=== PATIENT | female | born 1940 ===

== ENCOUNTER 2023-02-03 13:06 | Inpatient (IN) | payer OTHER, SELFPAY ==
--- NOTE | ~2023-02-03 | US_ITS ---
EXAMINATION: US ABDOMEN COMPLETE CLINICAL INFORMATION: Transaminasemia. COMPARISON: None available. TECHNIQUE: Real-time imaging of the abdominal viscera. FINDINGS: PANCREAS: Question small cyst in the body/neck of the pancreas measuring 4 x 5 mm. Pancreas is otherwise normal. ABDOMINAL AORTA: The proximal and distal segments are normal in caliber. Mid abdominal aorta are not well visualized due to bowel gas. INFERIOR VENA CAVA: Visualized portions are normal. LIVER: Normal. The liver is normal in size. The liver contour is normal. Parenchymal echogenicity is normal. No focal hepatic lesion. There is no intrahepatic biliary duct dilatation seen. GALLBLADDER: Surgically absent. COMMON BILE DUCT: Minimally dilated probably normal post cholecystectomy measuring 0.9 cm in diameter. RIGHT KIDNEY: 3 cm cyst in the midpole. No imaging follow-up recommended. No hydronephrosis or renal calculi. The kidney measures 11.3 cm in maximum dimension. LEFT KIDNEY: Normal. No hydronephrosis. No renal calculi or focal parenchymal lesions. The kidney measures 10.6 cm in maximum dimension. SPLEEN: Normal. The spleen measures 11.3 cm in maximum dimension. FREE FLUID: None. US/US abdomen complete IMPRESSION: Normal-appearing liver. Question small cyst in the body/neck of the pancreas.
--- NOTE | ~2023-02-03 | XR_ITS ---
EXAMINATION: XR CHEST CLINICAL INFORMATION: Chest pain COMPARISON: None available. TECHNIQUE: AP portable view of the chest was obtained. FINDINGS: There is no evidence of acute parenchymal disease, pneumothorax, or pleural effusion. Heart normal size. No evidence of pulmonary edema. There is a nondisplaced fracture which may be acute or chronic involving the anterolateral aspect of the right sixth rib. XR/XR chest 1V IMPRESSION: No acute parenchymal disease within the chest. Nondisplaced fracture which may be acute or chronic involving the right sixth rib.
--- NOTE | ~2023-02-03 | CT_ITS ---
EXAMINATION: CT ANGIOGRAM BRAIN, HEAD CLINICAL INFORMATION: Aneurysm. Intracranial stent, on heparin. COMPARISON: None available. TECHNIQUE: Test bolus sequences followed by intravenous administration 100 mL of Omnipaque 350 intravenous contrast. Helical imaging was performed in the axial plane from the skull base to the vertex. Delayed postcontrast imaging of the head was also performed. The data was processed at the anesthesiology technologist workstation for generation of MIP sequences. Three-dimensional volume rendered reformatted images were also generated at an offline 3-D workstation. The degree of stenosis determined by NASCET criteria. This CT examination was performed using dose optimization techniques as appropriate, variously including the following: *Automated exposure control *Adjustment of mA and/or kV according to patient size (this includes techniques or standardized protocols for targeted exams where dose is matched to indication/reason for exam; i.e. extremities or head) *Use of iterative reconstruction technique DLP: 1868 mGy-cm FINDINGS: CT head: There is no intracranial hemorrhage, extra-axial collection, mass effect, or territorial infarction. Moderate to severe chronic microangiopathic changes are seen within the cerebral white matter. The ventricles and sulci are commensurate with mild degree of brain parenchymal volume loss noted. The extra cranial structures are within normal limits. CTA head: Dense atheromatous changes are seen at the bilateral carotid siphons without significant stenosis. 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 The right A1 segment is atretic. The left A1 segment appears to supply both A2 segments. The ACAs and MCAs are patent. The collaterals appear symmetric. No aneurysm is seen. The intradural vertebral arteries are patent. The basilar artery is patent. There is disposition of the right CONCESSIONS MANAGER. CT/CT angio head IMPRESSION: 1. No acute intracranial abnormality. 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 2. 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 Anterior and posterior circulation is patent without significant stenosis or occlusion. No intracranial arterial stent identified.
--- NOTE | ~2023-02-03 | CT_ITS ---
EXAMINATION: CT HEAD WITHOUT CONTRAST CLINICAL INFORMATION: Trauma. Hit head. COMPARISON: Previous head CTA from yesterday TECHNIQUE: Contiguous axial imaging was performed from the skull base to vertex without intravenous administration of contrast. This CT examination was performed using dose optimization techniques as appropriate, variously including the following: *Automated exposure control *Adjustment of mA and/or kV according to patient size (this includes techniques or standardized protocols for targeted exams where dose is matched to indication/reason for exam; i.e. extremities or head) *Use of iterative reconstruction technique DLP: 550 mGy-cm FINDINGS: There is no evidence of an extra-axial collection. There is no evidence of intra or extra-axial hemorrhage. The ventricles and extra-axial CSF spaces are prominent suggestive of generalized atrophy. There is nonspecific periventricular white matter disease. There is evidence of previous instrumentation with coil embolization in the region of the acom. No mass, mass effect or infarct. No skull fracture. Visualized paranasal sinuses, mastoid air cells and middle ears are clear. CT/CT head/brain wo IV con IMPRESSION: No acute intracranial findings. Generalized atrophy and nonspecific periventricular white matter disease.
--- NOTE | 2023-02-03 13:07 | ECG_ITS ---
Test Reason : cp Blood Pressure : / mmHG Vent. Rate : 130 BPM Atrial Rate : 000 BPM P-R Int : 000 ms QRS Dur : 076 ms QT Int : 332 ms P-R-T Axes : 000 -17 169 degrees QTc Int : 488 ms Atrial fibrillation with rapid ventricular response ST & T wave abnormality, consider inferolateral ischemia Abnormal ECG No previous ECGs available Referred By: Generic ED Physician Electronically Signed By:TARIQ RUIZ
--- NOTE | 2023-02-03 13:14 | ED.CHESTPAIN ---
HPI - Chest Pain General Chief Complaint: Arrhythmia/Palpitations <EMRE Redd Last Filed: 02/03/23 13:15> Stated Complaint: chest pain <EMRE Redd Last Filed: 02/03/23 13:15> Time Seen by Provider: 02/03/23 13:29 <EMRE Redd - Last Filed: 02/03/23 13:15> Source: patient, RN notes reviewed and old records reviewed <EMRE Palacios Last Filed: 02/03/23 15:16> Mode of arrival: ambulatory <EMRE Palacios Last Filed: 02/03/23 15:16> History of Present Illness HPI narrative: 82-year-old female with a past medical history HTN, HLD, diabetes, brain aneurysm, presenting to ED complaining of chest pressure with associated generalized fatigue/weakness, lightheadedness and SOB x 3 days. Reports radiation of pain down LUE. denies fever, chills, cough, pedal edema, calf pain, recent travel <EMRE Palacios Last Filed: 02/03/23 15:16> MD complaint: chest discomfort <EMRE Palacios Last Filed: 02/03/23 15:16> Related Data Home Medications: Home Medications Medication Instructions Recorded Confirmed atorvastatin 80 mg tablet 80 mg PO DAILY 02/03/23 clopidogrel 75 mg tablet 75 mg PO DAILY 02/03/23 empagliflozin 25 mg tablet 25 mg PO DAILY 02/03/23 (Jardiance) glipizide 2.5 mg tablet, extended 5 mg PO BID 02/03/23 release 24 hr levothyroxine 75 mcg tablet 75 mcg PO DAILY 02/03/23 losartan 50 mg tablet 100 mg PO DAILY 02/03/23 metformin 1,000 mg tablet 1,000 mg PO BID 02/03/23 metoprolol succinate 25 mg 25 mg PO DAILY 02/03/23 tablet,extended release 24 hr <EMRE Redd Last Filed: 02/03/23 13:15> Allergies/Adverse Reactions: Allergies Allergy/AdvReac Type Severity Reaction Status Date / Time No Known Allergies Allergy Unverified 06/12/20 19:41 [No Known Allergies*] <EMRE Redd - Last Filed: 02/03/23 13:15> Review of Systems Review of Systems: Constitutional: No Fever, No Chills, No Fatigue, No Malaise ENT/Mouth: No Ear Pain, No sore throat, No Rhinorrhea, No Swallowing Difficulty Eyes: No Eye Pain, No Swelling, No Redness, No Vision Changes Cardiovascular: + Chest Pain, + SOB, No Edema, No Palpitations Respiratory: No Cough, No Sputum, No Dyspnea Gastrointestinal: No Nausea, No Vomiting, No Diarrhea, No Constipation, No Abdominal pain Genitourinary: No Dysuria, No Flank Pain, No Hesitancy Musculoskeletal: No joint pain, No Myalgias, No Joint Swelling Skin: No Skin Lesions, No rash Neuro: + Weakness, No Numbness, No Paresthesias, No Loss of Consciousness, + lightheaded, No Headache <EMRE Palacios - Last Filed: 02/03/23 15:16> Yes all other systems are reviewed and are negative <EMRE Palacios - Last Filed: 02/03/23 15:16> Constitutional: Constitutional: Reports as per HPI <EMRE Palacios - Last Filed: 02/03/23 15:16> Neurologic: Denies Abnormal speech present <EMRE Palacios - Last Filed: 02/03/23 15:16> [facility], [facility] Past Medical History Attestation statement: The following information was validated with the patient. <EMRE Palacios - Last Filed: 02/03/23 15:16> Source: old records reviewed <EMRE Palacios - Last Filed: 02/03/23 15:16> Social History Social History: Social History Advance Directives: No Advance Directives Information Provided: Yes <EMRE Redd - Last Filed: 02/03/23 13:15> Physical Exam Vital Signs: Vital Signs: Last Vital Signs Temp 97.9 F 02/03/23 13:45 Pulse 130 H 02/03/23 13:45 Resp 18 02/03/23 13:45 BP 120/60 02/03/23 13:45 Pulse Ox 96 02/03/23 13:45 O2 Del Method Room Air 02/03/23 13:45 BMI result Body Mass Index 23.3 <EMRE Redd - Last Filed: 02/03/23 13:15> Vital Signs: Last Vital Signs Temp 97.9 F 02/03/23 13:45 Pulse 130 H 02/03/23 13:45 Resp 18 02/03/23 13:45 BP 120/60 02/03/23 13:45 Pulse Ox 96 02/03/23 13:45 O2 Del Method Room Air 02/03/23 13:45 BMI result Body Mass Index 23.3 <EMRE Palacios - Last Filed: 02/03/23 15:16> Const: General: cooperative, healthy appearing, no acute distress, alert, awake and Physically active <EMRE Palacios - Last Filed: 02/03/23 15:16> Orientation/consciousness: patient oriented x3 <EMRE Palacios - Last Filed: 02/03/23 15:16> Limitations: no limitations <EMRE Palacios - Last Filed: 02/03/23 15:16> HEENT: Head: Yes normal to inspection and Yes atraumatic <EMRE Palacios - Last Filed: 02/03/23 15:16> Ears: hearing grossly normal bilaterally <EMRE Palacios - Last Filed: 02/03/23 15:16> General nose exam: Normal external nose present <EMRE Palacios - Last Filed: 02/03/23 15:16> Face and sinus: Yes normal facial exam <EMRE Palacios - Last Filed: 02/03/23 15:16> Eyes: General: appearance normal, both eyes and all related structures <EMRE Palacios - Last Filed: 02/03/23 15:16> EOM: EOMs intact bilaterally <EMRE Palacios - Last Filed: 02/03/23 15:16> Neck: Neck: Yes normal visual inspection and Yes no meningeal signs <EMRE Palacios - Last Filed: 02/03/23 15:16> Resp: Effort & Inspection: normal respiratory effort and no respiratory distress <EMRE Palacios - Last Filed: 02/03/23 15:16> Auscultation: clear to auscultation bilaterally, no crackles, no rales, no rhonchi and no wheezes <Audrey Poulrussellt PA - Last Filed: 02/03/23 15:16> Cardio: Rate: regular rate <Audrey Poulrussellt PA - Last Filed: 02/03/23 15:16> Heart sounds: S1 normal heart sound present and S2 normal heart sound present <Audrey Poulrussellt PA - Last Filed: 02/03/23 15:16> GI: Inspection: Yes normal to inspection <Audrey Poulrussellt PA - Last Filed: 02/03/23 15:16> Palpation (GI): Soft to palpation, nontender, no guarding and not rigid <Audrey Poulrussellt PA - Last Filed: 02/03/23 15:16> Skin: Rashes: no rashes <Audrey Nikolait PA - Last Filed: 02/03/23 15:16> Wounds: no wounds <Audrey Poulrussellt PA - Last Filed: 02/03/23 15:16> Neuro: General: patient oriented x3, tone normal, moves all extremities, no meningeal signs, no focal motor deficits and CN's II-XI intact bilaterally <Audrey Poulrussellt PA - Last Filed: 02/03/23 15:16> Cranial nerves: Yes CN's II-XII intact bilaterally and Yes Bilaterally intact EOM present <Audrey Poulrussellt PA - Last Filed: 02/03/23 15:16> Cognition (Neuro): normal cognition <Audrey Poulrussellt PA - Last Filed: 02/03/23 15:16> Speech: No Abnormal speech present <Audrey Poulrussellt PA - Last Filed: 02/03/23 15:16> Motor exam (neuro): 5/5 motor strength present throughout <Audrey Poulrussellt PA - Last Filed: 02/03/23 15:16> Extrem: General: Yes normal to inspection, Yes no pedal edema and Yes no calf tenderness <Audreycyndy Woodard PA - Last Filed: 02/03/23 15:16> Course Course Course Narrative: This is an RME: Additional HPI, ROS, PE not included below will be deferred to primary provider. 82 yo F presents w/ cp, sob X 3 days. CP substernal but radiates to L side of chest and part of LUE. Also a/c SOB. Unclear if patient is on thinners. PE benign Plan- labs, imaging <EMRE Redd - Last Filed: 02/03/23 13:15> This is an RME: Additional HPI, ROS, PE not included below will be deferred to primary provider. 82 yo F presents w/ cp, sob X 3 days. CP substernal but radiates to L side of chest and part of LUE. Also a/c SOB. Unclear if patient is on thinners. PE benign Plan- labs, imaging -1428-- no leukocytosis. H&H 9.2/29.9. D-dimer WNL, PE unlikely - BNP 1195 -1446-- AST/ ALT elevated. Initial troponin 534 > will consult cardiology and obtain 3 hour repeat, likely demand ischemia from new onset AFib. Patient denies chest pain at present >> Case discussed with Cardiology, Dr. Zelaya who recommended IV heparin - HR now 90s to 115 > patient given p.o. metoprolol. plan for admission <EMRE Palacios - Last Filed: 02/03/23 15:16> Medications Administered Discontinued Medications Generic Name Dose Route Start Last Admin Trade Name Freq PRN Reason Stop Dose Admin Insulin Human Lispro 5 unit 02/03/23 14:45 02/03/23 14:59 Insulin Lispro 100 Unit/Ml 3 Ml Vial SUBCUT 02/03/23 14:46 5 unit ONCE ONE Administration Metoprolol Tartrate 5 mg 02/03/23 13:49 02/03/23 14:02 Metoprolol Tartrate 5 Mg/5 Ml Vial IVPUSH 02/03/23 13:50 5 mg ONCE ONE Administration Metoprolol Tartrate 25 mg 02/03/23 14:50 02/03/23 14:59 Metoprolol Tartrate 25 Mg Tablet PO 02/03/23 14:51 25 mg ONCE ONE Administration Protocol <EMRE Redd - Last Filed: 02/03/23 13:15> Medications Administered Discontinued Medications Generic Name Dose Route Start Last Admin Trade Name Freq PRN Reason Stop Dose Admin Insulin Human Lispro 5 unit 02/03/23 14:45 02/03/23 14:59 Insulin Lispro 100 Unit/Ml 3 Ml Vial SUBCUT 02/03/23 14:46 5 unit ONCE ONE Administration Metoprolol Tartrate 5 mg 02/03/23 13:49 02/03/23 14:02 Metoprolol Tartrate 5 Mg/5 Ml Vial IVPUSH 02/03/23 13:50 5 mg ONCE ONE Administration Metoprolol Tartrate 25 mg 02/03/23 14:50 02/03/23 14:59 Metoprolol Tartrate 25 Mg Tablet PO 02/03/23 14:51 25 mg ONCE ONE Administration Protocol <EMRE Palacios Last Filed: 02/03/23 15:16> Medical Decision Making Medical Decision Making MDM Narrative: 82-year-old female with a past medical history HTN, HLD, diabetes, brain aneurysm, presenting to ED complaining of chest pressure with associated generalized fatigue/weakness, lightheadedness and SOB x 3 days. On exam patient tachycardic in AFib with RVR at a rate of 114-130, NAD, nontoxic appearing, lungs CTA, no pedal edema, no focal neuro deficits. Concern for new onset AFib vs ACS vs metabolic/infectious etiologies. lower suspicion for PE, CVA plan: EKG, labs, CXR, rate control, re-evaluate Please refer to course for remaining clinical decision making, interpretation of labs/imaging results, and discussions with consultants and/or family members. <EMRE Palacios Last Filed: 02/03/23 15:16> Differential Diagnosis Differential Diagnoses: The differential diagnosis associated with the presentation includes <EMRE Palacios Last Filed: 02/03/23 15:16> As above <EMRE Palacios Last Filed: 02/03/23 15:16> Admission/Observation Consideration of admission/observation: Escalation of care including admission/observation considered <EMRE Palacios Last Filed: 02/03/23 15:16> Consult Healthcare Provider Management of the patient was discussed with: Hospitalist and Residential Treatment Staff <EMRE Palacios Last Filed: 02/03/23 15:16> Lab Data [facility] Lab Attestation statement: I reviewed the patient's lab results. <EMRE Palacios - Last Filed: 02/03/23 15:16> Result Diagrams: 02/03/23 13:51 02/03/23 13:51 <EMRE Redd - Last Filed: 02/03/23 13:15> Labs: Lab Results 02/03/23 02/03/23 02/03/23 Range/Units 13:25 13:25 13:51 WBC 5.3 (4.8-10.8) X10*3/uL RBC 3.76 L (4.20-5.50) X10*6/uL Hgb 9.2 L (12.0-16.0) g/dl Hct 29.9 L (37.0-47.0) % MCV 79.5 L (80.0-98.0) fL MCH 24.5 L (27.0-33.0) pg MCHC 30.8 L (31.0-35.0) g/dl RDW 16.3 H (11.0-16.0) % Plt Count 191 (160-400) X10*3/uL MPV 9.7 (9.4-12.3) fL Immature Gran % (Auto) 0.4 (0.0-0.4) % Neut % (Auto) 73.1 H (45-73) % Lymph % (Auto) 16.4 L (20-40) % [place] % (Auto) 8.9 (2-11) % Eos % (Auto) 0.6 (0-4) % Baso % (Auto) 0.6 (0-2) % Lymph # (Auto) 0.9 L (1.2-4.9) X10*3/uL [place] # (Auto) 0.5 (0.1-1.2) X10*3/uL Eos # (Auto) 0.0 (0.0-0.4) X10*3/uL Baso # (Auto) 0.0 (0.0-0.2) X10*3/uL Abs Immat Gran (auto) 0.02 (0.00-0.03) X10*3/uL Absolute Neuts (auto) 3.9 (2.0-8.3) x10*3/uL Absolute Nucleated RBC 0.000 (0.0-0.012) X10*3/uL Nucleated RBC % (auto) 0.0 (0.0-0.2) /100WBC PT (10.0-13.1) SEC INR (0.9-1.1) D-Dimer High Sensitivty NG/ML Sodium (135-145) mmol/L Potassium (3.3-5.1) mmol/L Chloride (96-108) mmol/L Carbon Dioxide (22-29) mmol/L Anion Gap (12-20) BUN (9-16) mg/dL Creatinine (0.5-1.4) mg/dL Estim Creat Clear Calc Estimated GFR Random Glucose (60-115) mg/dL Calcium (8.4-10.2) mg/dL Magnesium (1.6-2.6) mg/dL Total Bilirubin (0.0-1.0) mg/dL AST (5-31) U/L ALT (0-31) U/L Alkaline Phosphatase (39-117) U/L Troponin I High Sens (<3.5-17.0) ng/L B-Natriuretic Peptide (<100) pg/mL Total Protein (6.5-8.0) g/dL Albumin (3.5-5.0) g/dL Urine Color Yellow Urine Appearance Clear Urine pH 5.5 (5.0-9.0) Ur Specific May >= 1.030 H (1.005-1.025) Urine Protein Negative (Neg-Trace) mg/dL Urine Glucose (UA) >=1000 H (Negative) mg/dL Urine Ketones Trace (Negative) mg/dL Urine Blood Negative (Negative) Urine Nitrite Negative (Negative) Ur Leukocyte Esterase Negative (Negative) Urine RBC 0-2 (0-2) /HPF Urine WBC 0-5 (0-5) /HPF Ur Squamous Epith Cells 0-2 (0-2) /HPF Urine Bacteria None Seen (None Seen) Hyaline Casts 0-2 (0-2) /LPF COVID-19 (MARYANN) Negative (Negative) COVID-19 Clin Com See Note 02/03/23 02/03/23 02/03/23 Range/Units 13:51 13:51 13:51 WBC (4.8-10.8) X10*3/uL RBC (4.20-5.50) X10*6/uL Hgb (12.0-16.0) g/dl Hct (37.0-47.0) % MCV (80.0-98.0) fL MCH (27.0-33.0) pg MCHC (31.0-35.0) g/dl RDW (11.0-16.0) % Plt Count (160-400) X10*3/uL MPV (9.4-12.3) fL Immature Gran % (Auto) (0.0-0.4) % Neut % (Auto) (45-73) % Lymph % (Auto) (20-40) % [place] % (Auto) (2-11) % Eos % (Auto) (0-4) % Baso % (Auto) (0-2) % Lymph # (Auto) (1.2-4.9) X10*3/uL [place] # (Auto) (0.1-1.2) X10*3/uL Eos # (Auto) (0.0-0.4) X10*3/uL Baso # (Auto) (0.0-0.2) X10*3/uL Abs Immat Gran (auto) (0.00-0.03) X10*3/uL Absolute Neuts (auto) (2.0-8.3) x10*3/uL Absolute Nucleated RBC (0.0-0.012) X10*3/uL Nucleated RBC % (auto) (0.0-0.2) /100WBC PT 12.4 (10.0-13.1) SEC INR 1.1 (0.9-1.1) D-Dimer High Sensitivty 151 NG/ML Sodium 133 L (135-145) mmol/L Potassium 4.8 (3.3-5.1) mmol/L Chloride 106 (96-108) mmol/L Carbon Dioxide 19 L (22-29) mmol/L Anion Gap 13 (12-20) BUN 32 H (9-16) mg/dL Creatinine 1.15 (0.5-1.4) mg/dL Estim Creat Clear Calc 30.3 Estimated GFR 45 Random Glucose 361 H* (60-115) mg/dL Calcium 9.5 (8.4-10.2) mg/dL Magnesium 1.9 (1.6-2.6) mg/dL Total Bilirubin 1.0 (0.0-1.0) mg/dL AST 102 H (5-31) U/L ALT 96 H (0-31) U/L Alkaline Phosphatase 172 H (39-117) U/L Troponin I High Sens 534.7 H* (<3.5-17.0) ng/L B-Natriuretic Peptide (<100) pg/mL Total Protein 7.8 (6.5-8.0) g/dL Albumin 3.5 (3.5-5.0) g/dL Urine Color Urine Appearance Urine pH (5.0-9.0) Ur Specific May (1.005-1.025) Urine Protein (Neg-Trace) mg/dL Urine Glucose (UA) (Negative) mg/dL Urine Ketones (Negative) mg/dL Urine Blood (Negative) Urine Nitrite (Negative) Ur Leukocyte Esterase (Negative) Urine RBC (0-2) /HPF Urine WBC (0-5) /HPF Ur Squamous Epith Cells (0-2) /HPF Urine Bacteria (None Seen) Hyaline Casts (0-2) /LPF COVID-19 (MARYANN) (Negative) COVID-19 Clin Com 02/03/23 Range/Units 13:51 WBC (4.8-10.8) X10*3/uL RBC (4.20-5.50) X10*6/uL Hgb (12.0-16.0) g/dl Hct (37.0-47.0) % MCV (80.0-98.0) fL MCH (27.0-33.0) pg MCHC (31.0-35.0) g/dl RDW (11.0-16.0) % Plt Count (160-400) X10*3/uL MPV (9.4-12.3) fL Immature Gran % (Auto) (0.0-0.4) % Neut % (Auto) (45-73) % Lymph % (Auto) (20-40) % [place] % (Auto) (2-11) % Eos % (Auto) (0-4) % Baso % (Auto) (0-2) % Lymph # (Auto) (1.2-4.9) X10*3/uL [place] # (Auto) (0.1-1.2) X10*3/uL Eos # (Auto) (0.0-0.4) X10*3/uL Baso # (Auto) (0.0-0.2) X10*3/uL Abs Immat Gran (auto) (0.00-0.03) X10*3/uL Absolute Neuts (auto) (2.0-8.3) x10*3/uL Absolute Nucleated RBC (0.0-0.012) X10*3/uL Nucleated RBC % (auto) (0.0-0.2) /100WBC PT (10.0-13.1) SEC INR (0.9-1.1) D-Dimer High Sensitivty NG/ML Sodium (135-145) mmol/L Potassium (3.3-5.1) mmol/L Chloride (96-108) mmol/L Carbon Dioxide (22-29) mmol/L Anion Gap (12-20) BUN (9-16) mg/dL Creatinine (0.5-1.4) mg/dL Estim Creat Clear Calc Estimated GFR Random Glucose (60-115) mg/dL Calcium (8.4-10.2) mg/dL Magnesium (1.6-2.6) mg/dL Total Bilirubin (0.0-1.0) mg/dL AST (5-31) U/L ALT (0-31) U/L Alkaline Phosphatase (39-117) U/L Troponin I High Sens (<3.5-17.0) ng/L B-Natriuretic Peptide 1195 H (<100) pg/mL Total Protein (6.5-8.0) g/dL Albumin (3.5-5.0) g/dL Urine Color Urine Appearance Urine pH (5.0-9.0) Ur Specific May (1.005-1.025) Urine Protein (Neg-Trace) mg/dL Urine Glucose (UA) (Negative) mg/dL Urine Ketones (Negative) mg/dL Urine Blood (Negative) Urine Nitrite (Negative) Ur Leukocyte Esterase (Negative) Urine RBC (0-2) /HPF Urine WBC (0-5) /HPF Ur Squamous Epith Cells (0-2) /HPF Urine Bacteria (None Seen) Hyaline Casts (0-2) /LPF COVID-19 (MARYANN) (Negative) COVID-19 Clin Com <EMRE Redd - Last Filed: 02/03/23 13:15> Lab Results 02/03/23 02/03/23 02/03/23 Range/Units 13:25 13:25 13:51 WBC 5.3 (4.8-10.8) X10*3/uL RBC 3.76 L (4.20-5.50) X10*6/uL Hgb 9.2 L (12.0-16.0) g/dl Hct 29.9 L (37.0-47.0) % MCV 79.5 L (80.0-98.0) fL MCH 24.5 L (27.0-33.0) pg MCHC 30.8 L (31.0-35.0) g/dl RDW 16.3 H (11.0-16.0) % Plt Count 191 (160-400) X10*3/uL MPV 9.7 (9.4-12.3) fL Immature Gran % (Auto) 0.4 (0.0-0.4) % Neut % (Auto) 73.1 H (45-73) % Lymph % (Auto) 16.4 L (20-40) % [place] % (Auto) 8.9 (2-11) % Eos % (Auto) 0.6 (0-4) % Baso % (Auto) 0.6 (0-2) % Lymph # (Auto) 0.9 L (1.2-4.9) X10*3/uL [place] # (Auto) 0.5 (0.1-1.2) X10*3/uL Eos # (Auto) 0.0 (0.0-0.4) X10*3/uL Baso # (Auto) 0.0 (0.0-0.2) X10*3/uL Abs Immat Gran (auto) 0.02 (0.00-0.03) X10*3/uL Absolute Neuts (auto) 3.9 (2.0-8.3) x10*3/uL Absolute Nucleated RBC 0.000 (0.0-0.012) X10*3/uL Nucleated RBC % (auto) 0.0 (0.0-0.2) /100WBC PT (10.0-13.1) SEC INR (0.9-1.1) D-Dimer High Sensitivty NG/ML Sodium (135-145) mmol/L Potassium (3.3-5.1) mmol/L Chloride (96-108) mmol/L Carbon Dioxide (22-29) mmol/L Anion Gap (12-20) BUN (9-16) mg/dL Creatinine (0.5-1.4) mg/dL Estim Creat Clear Calc Estimated GFR Random Glucose (60-115) mg/dL Calcium (8.4-10.2) mg/dL Magnesium (1.6-2.6) mg/dL Total Bilirubin (0.0-1.0) mg/dL AST (5-31) U/L ALT (0-31) U/L Alkaline Phosphatase (39-117) U/L Troponin I High Sens (<3.5-17.0) ng/L B-Natriuretic Peptide (<100) pg/mL Total Protein (6.5-8.0) g/dL Albumin (3.5-5.0) g/dL Urine Color Yellow Urine Appearance Clear Urine pH 5.5 (5.0-9.0) Ur Specific May >= 1.030 H (1.005-1.025) Urine Protein Negative (Neg-Trace) mg/dL Urine Glucose (UA) >=1000 H (Negative) mg/dL Urine Ketones Trace (Negative) mg/dL Urine Blood Negative (Negative) Urine Nitrite Negative (Negative) Ur Leukocyte Esterase Negative (Negative) Urine RBC 0-2 (0-2) /HPF Urine WBC 0-5 (0-5) /HPF Ur Squamous Epith Cells 0-2 (0-2) /HPF Urine Bacteria None Seen (None Seen) Hyaline Casts 0-2 (0-2) /LPF COVID-19 (MARYANN) Negative (Negative) COVID-19 Clin Com See Note 02/03/23 02/03/23 02/03/23 Range/Units 13:51 13:51 13:51 WBC (4.8-10.8) X10*3/uL RBC (4.20-5.50) X10*6/uL Hgb (12.0-16.0) g/dl Hct (37.0-47.0) % MCV (80.0-98.0) fL MCH (27.0-33.0) pg MCHC (31.0-35.0) g/dl RDW (11.0-16.0) % Plt Count (160-400) X10*3/uL MPV (9.4-12.3) fL Immature Gran % (Auto) (0.0-0.4) % Neut % (Auto) (45-73) % Lymph % (Auto) (20-40) % [place] % (Auto) (2-11) % Eos % (Auto) (0-4) % Baso % (Auto) (0-2) % Lymph # (Auto) (1.2-4.9) X10*3/uL [place] # (Auto) (0.1-1.2) X10*3/uL Eos # (Auto) (0.0-0.4) X10*3/uL Baso # (Auto) (0.0-0.2) X10*3/uL Abs Immat Gran (auto) (0.00-0.03) X10*3/uL Absolute Neuts (auto) (2.0-8.3) x10*3/uL Absolute Nucleated RBC (0.0-0.012) X10*3/uL Nucleated RBC % (auto) (0.0-0.2) /100WBC PT 12.4 (10.0-13.1) SEC INR 1.1 (0.9-1.1) D-Dimer High Sensitivty 151 NG/ML Sodium 133 L (135-145) mmol/L Potassium 4.8 (3.3-5.1) mmol/L Chloride 106 (96-108) mmol/L Carbon Dioxide 19 L (22-29) mmol/L Anion Gap 13 (12-20) BUN 32 H (9-16) mg/dL Creatinine 1.15 (0.5-1.4) mg/dL Estim Creat Clear Calc 30.3 Estimated GFR 45 Random Glucose 361 H* (60-115) mg/dL Calcium 9.5 (8.4-10.2) mg/dL Magnesium 1.9 (1.6-2.6) mg/dL Total Bilirubin 1.0 (0.0-1.0) mg/dL AST 102 H (5-31) U/L ALT 96 H (0-31) U/L Alkaline Phosphatase 172 H (39-117) U/L Troponin I High Sens 534.7 H* (<3.5-17.0) ng/L B-Natriuretic Peptide (<100) pg/mL Total Protein 7.8 (6.5-8.0) g/dL Albumin 3.5 (3.5-5.0) g/dL Urine Color Urine Appearance Urine pH (5.0-9.0) Ur Specific May (1.005-1.025) Urine Protein (Neg-Trace) mg/dL Urine Glucose (UA) (Negative) mg/dL Urine Ketones (Negative) mg/dL Urine Blood (Negative) Urine Nitrite (Negative) Ur Leukocyte Esterase (Negative) Urine RBC (0-2) /HPF Urine WBC (0-5) /HPF Ur Squamous Epith Cells (0-2) /HPF Urine Bacteria (None Seen) Hyaline Casts (0-2) /LPF COVID-19 (MARYANN) (Negative) COVID-19 Clin Com 02/03/23 Range/Units 13:51 WBC (4.8-10.8) X10*3/uL RBC (4.20-5.50) X10*6/uL Hgb (12.0-16.0) g/dl Hct (37.0-47.0) % MCV (80.0-98.0) fL MCH (27.0-33.0) pg MCHC (31.0-35.0) g/dl RDW (11.0-16.0) % Plt Count (160-400) X10*3/uL MPV (9.4-12.3) fL Immature Gran % (Auto) (0.0-0.4) % Neut % (Auto) (45-73) % Lymph % (Auto) (20-40) % [place] % (Auto) (2-11) % Eos % (Auto) (0-4) % Baso % (Auto) (0-2) % Lymph # (Auto) (1.2-4.9) X10*3/uL [place] # (Auto) (0.1-1.2) X10*3/uL Eos # (Auto) (0.0-0.4) X10*3/uL Baso # (Auto) (0.0-0.2) X10*3/uL Abs Immat Gran (auto) (0.00-0.03) X10*3/uL Absolute Neuts (auto) (2.0-8.3) x10*3/uL Absolute Nucleated RBC (0.0-0.012) X10*3/uL Nucleated RBC % (auto) (0.0-0.2) /100WBC PT (10.0-13.1) SEC INR (0.9-1.1) D-Dimer High Sensitivty NG/ML Sodium (135-145) mmol/L Potassium (3.3-5.1) mmol/L Chloride (96-108) mmol/L Carbon Dioxide (22-29) mmol/L Anion Gap (12-20) BUN (9-16) mg/dL Creatinine (0.5-1.4) mg/dL Estim Creat Clear Calc Estimated GFR Random Glucose (60-115) mg/dL Calcium (8.4-10.2) mg/dL Magnesium (1.6-2.6) mg/dL Total Bilirubin (0.0-1.0) mg/dL AST (5-31) U/L ALT (0-31) U/L Alkaline Phosphatase (39-117) U/L Troponin I High Sens (<3.5-17.0) ng/L B-Natriuretic Peptide 1195 H (<100) pg/mL Total Protein (6.5-8.0) g/dL Albumin (3.5-5.0) g/dL Urine Color Urine Appearance Urine pH (5.0-9.0) Ur Specific May (1.005-1.025) Urine Protein (Neg-Trace) mg/dL Urine Glucose (UA) (Negative) mg/dL Urine Ketones (Negative) mg/dL Urine Blood (Negative) Urine Nitrite (Negative) Ur Leukocyte Esterase (Negative) Urine RBC (0-2) /HPF Urine WBC (0-5) /HPF Ur Squamous Epith Cells (0-2) /HPF Urine Bacteria (None Seen) Hyaline Casts (0-2) /LPF COVID-19 (MARYANN) (Negative) COVID-19 Clin Com <EMRE Palacios - Last Filed: 02/03/23 15:16> Independent Interpretation I performed an independent interpretation of an: EKG ( EKG AFib with RVR at a rate of 130. QRS 76. QTC 488. No STEMI. No available priors to compare) <EMRE Palacios - Last Filed: 02/03/23 15:16> Radiology Impression Discussion of test interpretation with radiology: I have reviewed the radiologist's reading. <EMRE Palacios - Last Filed: 02/03/23 15:16> External Record Review External record reviewed: Inpatient record, Office record, Outpatient record, Prior outpatient labs, Prior outpatient radiology, Primary care record and Outside ED record <EMRE Palacios - Last Filed: 02/03/23 15:16> Tests considered The following testing was considered but not selected: As above <EMRE Palacios - Last Filed: 02/03/23 15:16> Critical Care Time Critical Care Time Critical Care Time: Yes <EMRE Palacios - Last Filed: 02/03/23 15:16> Total Critical Care Time: 50 <EMRE Palacios - Last Filed: 02/03/23 15:16> Attestation: I have personally provided critical care time exclusive of time spent on separately billable procedures. Time includes review of lab data, radiology results, discussion with consultants, and monitoring for potential decompensation. Intervention performed as documented. <EMRE Palacios - Last Filed: 02/03/23 15:16> Discharge Plan Discharge Clinical Impression: New onset a-fib <EMRE Redd - Last Filed: 02/03/23 13:15> Patient Disposition: Admitted As Inpatient <EMRE Redd - Last Filed: 02/03/23 13:15>
[2023-02-03 13:38] LABS: Appearance Urine Clear; Color Urine Yellow; Glucose Urine UA >=1000 mg/dL (Negative); Leukocyte Esterase Urine Negative (Negative); Nitrite Urine Negative (Negative); PH 5.5 (5.0-9.0); Specific Gravity - Urine >= 1.030 (1.005-1.025); UMIC TRIGGER UACC YES; Urine Blood Negative (Negative); Urine Ketones Trace mg/dL (Negative); Urine Protein Negative (Neg-Trace)
[2023-02-03 13:42] LABS: Bacteria Urine None Seen (None Seen); Hyaline Casts Urine 0-2 /LPF (0-2); RBC Urine 0-2 /HPF (0-2); Squamous Epithelial Cell Urine 0-2 /HPF (0-2); WBC Urine 0-5 /HPF (0-5)
[2023-02-03 13:45] VITALS: BP 120/60; PULSE 130; RESP 18; TEMP 36.6; O2SAT 96; BMI 23.3
[2023-02-03 13:47] LABS: COVID-19 Test Negative (Negative); IDNOW Serial# 08D9AD1C
[2023-02-03 13:57] LABS: MANUAL DIFF FLAG NO
[2023-02-03 13:58] LABS: Basophils Percent Auto 0.6 % (0-2); Eosinophils Percent Auto 0.6 % (0-4); Hematocrit 29.9 % (37.0-47.0); Hemoglobin 9.2 g/dl (12.0-16.0); Imm Gran Abs Auto 0.02 X10*3/uL (0.00-0.03); Imm Gran Pct Auto 0.4 % (0.0-0.4); Lymphocytes Absolute Auto 0.9 X10*3/uL (1.2-4.9); Lymphocytes Percent Auto 16.4 % (20-40); Mean Corpuscular HGB Conc 30.8 g/dl (31.0-35.0); Mean Corpuscular Hemoglobin 24.5 pg (27.0-33.0); Mean Corpuscular Volume 79.5 fL (80.0-98.0); Mean Platelet Volume 9.7 fL (9.4-12.3); Monocytes Absolute Auto 0.5 X10*3/uL (0.1-1.2); Monocytes Percent Auto 8.9 % (2-11); Neutrophils Absolute Auto 3.9 x10*3/uL (2.0-8.3); Neutrophils Percent Auto 73.1 % (45-73); Platelet Count 191 X10*3/uL (160-400); Red Blood Count 3.76 X10*6/uL (4.20-5.50); Red Cell Distribution Width 16.3 % (11.0-16.0); White Blood Count 5.3 X10*3/uL (4.8-10.8)
[2023-02-03] MEDS: Metoprolol Tartrate 5 MG/5 ML VIAL IVPUSH (14:02)
[2023-02-03 14:09] LABS: INTERNATIONAL NORM RATIO 1.1 (0.9-1.1); Prothrombin Time 12.4 SEC (10.0-13.1)
[2023-02-03 14:11] LABS: D Dimer High Sensitivity 151 NG/ML
--- NOTE | 2023-02-03 14:18 | PC.NURSE ---
Medicated per the MAR, hr 90's-100's.
[2023-02-03 14:22] LABS: B Type Natriuretic Peptide 1195 pg/mL (<100)
[2023-02-03 14:36] LABS: Alanine Aminotransferase 96 U/L (0-31); Albumin Level 3.5 g/dL (3.5-5.0); Alkaline Phosphatase 172 U/L (39-117); Anion Gap 13 (12-20); Aspartate Amino Transferase 102 U/L (5-31); Blood Urea Nitrogen 32 mg/dL (9-16); Calcium 9.5 mg/dL (8.4-10.2); Carbon Dioxide 19 mmol/L (22-29); Chloride 106 mmol/L (96-108); Creatinine Clr Calc Pharmacy 30.3; Estimated Glomerular Filt Rate 45; Magnesium 1.9 mg/dL (1.6-2.6); Potassium 4.8 mmol/L (3.3-5.1); Sodium 133 mmol/L (135-145); Total Protein 7.8 g/dL (6.5-8.0)
[2023-02-03 14:41] LABS: Glucose Random 361 mg/dL (60-115); Troponin-I High Sensitivity 534.7 ng/L (<3.5-17.0)
[2023-02-03] MEDS: Insulin Lispro 100 UNIT/ML 3 ML VIAL SUBCUT ×2 (14:59→20:40)
[2023-02-03] MEDS: Metoprolol Tartrate 25 MG TABLET PO (14:59)
--- NOTE | 2023-02-03 15:25 | PHA.MEDREC ---
Pharmacy Consult ? Medication Reconciliation Pharmacy has completed the medication reconciliation. Spoke to daughter Russ
[2023-02-03 15:35] VITALS: BP 106/58; PULSE 89; RESP 17; TEMP 36.6; O2SAT 99
[2023-02-03 16:03] LABS: Hemoglobin 8.8 g/dl (12.0-16.0); Mean Corpuscular HGB Conc 30.3 g/dl (31.0-35.0); Mean Corpuscular Hemoglobin 24.2 pg (27.0-33.0); Mean Corpuscular Volume 79.9 fL (80.0-98.0); Mean Platelet Volume 9.9 fL (9.4-12.3); Platelet Count 170 X10*3/uL (160-400); Red Blood Count 3.63 X10*6/uL (4.20-5.50); Red Cell Distribution Width 16.4 % (11.0-16.0); White Blood Count 4.7 X10*3/uL (4.8-10.8)
[2023-02-03 16:09] LABS: PTT Heparin Drip 30.7 SEC (53-77.9)
[2023-02-03 16:29] LABS: Troponin-I High Sensitivity 695.6 ng/L (<3.5-17.0)
[2023-02-03] MEDS: Heparin Sodium,Porcine 5,000 UNIT/ML VIAL 3500 UNIT IVPUSH (16:43)
--- NOTE | 2023-02-03 16:45 | P.HPHOSP_ITS ---
History of Present Illness Date of Service: 02/03/23 Attending physician on admission: Esther Lindsey Chief Complaint: Chest pressure Pt is a 82-year-old female with a PMH significant for CAD, HTN, HLD, moe-wcnsqwp-juyvewzbi diabetes type 2, hx of brain aneurysm, and hypothyroid?who presents to the ED with?3 days of chest pain/pressure. Pt states chest pain began in the center of her chest and soon migrated to right over her heart. Pains described as constant, radiating up to her throat and to left arm. Pt has also been experiencing shortness of breath with chest pain/pressure, as well as diaphoresis, headache. Patient has also been dizzy and weak these past 3 days and has not been able to walk or eat much. Had 1 episode of nausea and vomiting. Patient states she experienced similar symptoms a few times before with the last episode 3 weeks ago. Also occasionally has had palpitations in the past. Patient denies fever, chills, abdominal pain. Patient denies a history of alcohol use or smoking. In the ED patient was afebrile but tachycardic up into the 130s. Labs were significant for H&H of 9.2/29.9, sodium 133, BUN of 32, creatinine of 1.15, random glucose of 361, AST of 102, ALT of 96, alk-phos of 172, BNP of 1195, initial troponin 534.7 with repeat of 695.6. UA negative for UTI. CXR showed no acute cardiopulmonary process, but did show nondisplaced fracture of the right 6 rib that could be acute or chronic. EKG demonstrated AFib with RVR of 130 with no evidence of ST elevations, but did show ST depressions in I, V3-V6. Pt was treated with metoprolol 5 mg IV and 25 mg p.o., and placed on a heparin drip. Pt will be admitted to the hospital for treatment and further evaluation of NSTEMI. [facility] Social History Advance Directives: No Advance Directives Information Provided: Yes Meds Allergies Allergy/AdvReac Type Severity Reaction Status Date / Time No Known Allergies Allergy Unverified 06/12/20 19:41 [No Known Allergies*] Active Medications: Current Medications Heparin Sodium (Porcine) (Heparin Sodium,Porcine 5,000 Unit/Ml Vial) 2,300 unit 40 unit/kg (2300 unit) IVPUSH PROTOCOL BOLUS PRN; Protocol PRN Reason: 40 unit/kg - Heparin Protocol Heparin Sodium (Porcine) (Heparin Sodium,Porcine 5,000 Unit/Ml Vial) 4,600 unit 80 unit/kg (4600 unit) IVPUSH PROTOCOL BOLUS PRN; Protocol PRN Reason: 80 unit/kg - Heparin Protocol Heparin Sodium/Sodium Chloride (Heparin Sodium,Porcine/1/2ns) 25,000 unit in 250 mls @ 0 mls/hr IVCONT .Q0M MONA; Protocol Home Medications Medication Instructions Recorded Confirmed Last Taken Type atorvastatin 80 mg tablet 80 mg PO BEDTIME 02/03/23 02/03/23 02/02/23 History clopidogrel 75 mg tablet 75 mg PO DAILY 02/03/23 02/03/23 02/03/23 History empagliflozin 25 mg tablet 25 mg PO DAILY 02/03/23 02/03/23 02/03/23 History (Jardiance) glipizide 2.5 mg tablet, extended 5 mg PO BID 02/03/23 02/03/23 02/03/23 History release 24 hr levothyroxine 75 mcg tablet 75 mcg PO DAILY 02/03/23 02/03/23 02/03/23 History losartan 50 mg tablet 100 mg PO DAILY 02/03/23 02/03/23 02/03/23 History metformin 1,000 mg tablet 1,000 mg PO BID 02/03/23 02/03/23 02/03/23 History metoprolol succinate 25 mg 25 mg PO DAILY 02/03/23 02/03/23 02/03/23 History tablet,extended release 24 hr Physical Exam Vital Signs and Narrative: Vital Signs: Last Vital Signs Temp 98 F 02/03/23 15:35 Pulse 89 02/03/23 15:35 Resp 17 02/03/23 15:35 BP 106/58 L 02/03/23 15:35 Pulse Ox 99 02/03/23 15:35 O2 Del Method Room Air 02/03/23 15:35 BMI result Body Mass Index 23.3 Constitutional: Alert, in no acute distress. Mental Status: Oriented to person, place and time. Eyes: Pupils are equal, round, and reactive to light. Ear, Nose, and Throat: Oropharynx clear, mucous membranes moist. Ears and nose without deformities. Trachea midline. Respiratory: Clear to auscultation bilaterally. No wheezing, rales, or rhonchi. Cardiovascular: Irregularly irregular rhythym. No murmurs, rubs, or gallops. Gastrointestinal: Abdomen soft, non-tender, non-distended. Normal bowel sounds. Negative Hurtado sign Neurologic: Cranial nerves II-XII are grossly intact bilaterally. No focal neurological deficits. Moves all extremities spontaneously. Skin: Warm, dry. Musculoskeletal: No cyanosis or clubbing. Extremities: No edema. Psychiatric: Normal mood and affect. Results Labs 02/03/23 15:50 02/03/23 13:51 Labs: Laboratory Results - last 24 hr 02/03/23 02/03/23 02/03/23 13:25 13:25 13:51 MCV 79.5 L MCH 24.5 L MCHC 30.8 L RDW 16.3 H Plt Count 191 MPV 9.7 Immature Gran % (Auto) 0.4 Neut % (Auto) 73.1 H Lymph % (Auto) 16.4 L [place] % (Auto) 8.9 Eos % (Auto) 0.6 Baso % (Auto) 0.6 Lymph # (Auto) 0.9 L [place] # (Auto) 0.5 Eos # (Auto) 0.0 Baso # (Auto) 0.0 Abs Immat Gran (auto) 0.02 Absolute Neuts (auto) 3.9 Absolute Nucleated RBC 0.000 Nucleated RBC % (auto) 0.0 PT INR aPTT Heparin Protocol D-Dimer High Sensitivty Anion Gap Estim Creat Clear Calc Estimated GFR Random Glucose Calcium Magnesium Total Bilirubin AST ALT Alkaline Phosphatase Troponin I High Sens B-Natriuretic Peptide Total Protein Albumin Urine Color Yellow Urine Appearance Clear Urine pH 5.5 Ur Specific [place] >= 1.030 H Urine Protein Negative Urine Glucose (UA) >=1000 H Urine Ketones Trace Urine Blood Negative Urine Nitrite Negative Ur Leukocyte Esterase Negative Urine RBC 0-2 Urine WBC 0-5 Ur Squamous Epith Cells 0-2 Urine Bacteria None Seen Hyaline Casts 0-2 COVID-19 (MARYANN) Negative COVID-19 Clin Com See Note 02/03/23 02/03/23 02/03/23 13:51 13:51 13:51 MCV MCH MCHC RDW Plt Count MPV Immature Gran % (Auto) Neut % (Auto) Lymph % (Auto) [place] % (Auto) Eos % (Auto) Baso % (Auto) Lymph # (Auto) [place] # (Auto) Eos # (Auto) Baso # (Auto) Abs Immat Gran (auto) Absolute Neuts (auto) Absolute Nucleated RBC Nucleated RBC % (auto) PT 12.4 INR 1.1 aPTT Heparin Protocol D-Dimer High Sensitivty 151 Anion Gap 13 Estim Creat Clear Calc 30.3 Estimated GFR 45 Random Glucose 361 H* Calcium 9.5 Magnesium 1.9 Total Bilirubin 1.0 AST 102 H ALT 96 H Alkaline Phosphatase 172 H Troponin I High Sens 534.7 H* B-Natriuretic Peptide Total Protein 7.8 Albumin 3.5 Urine Color Urine Appearance Urine pH Ur Specific [place] Urine Protein Urine Glucose (UA) Urine Ketones Urine Blood Urine Nitrite Ur Leukocyte Esterase Urine RBC Urine WBC Ur Squamous Epith Cells Urine Bacteria Hyaline Casts COVID-19 (MARYANN) COVID-[employer] 02/03/23 02/03/23 02/03/23 13:51 15:50 15:50 MCV 79.9 L MCH 24.2 L MCHC 30.3 L RDW 16.4 H Plt Count 170 MPV 9.9 Immature Gran % (Auto) Neut % (Auto) Lymph % (Auto) [place] % (Auto) Eos % (Auto) Baso % (Auto) Lymph # (Auto) [place] # (Auto) Eos # (Auto) Baso # (Auto) Abs Immat Gran (auto) Absolute Neuts (auto) Absolute Nucleated RBC 0.000 Nucleated RBC % (auto) 0.0 PT INR aPTT Heparin Protocol D-Dimer High Sensitivty Anion Gap Estim Creat Clear Calc Estimated GFR Random Glucose Calcium Magnesium Total Bilirubin AST ALT Alkaline Phosphatase Troponin I High Sens 695.6 H* B-Natriuretic Peptide 1195 H Total Protein Albumin Urine Color Urine Appearance Urine pH Ur Specific [place] Urine Protein Urine Glucose (UA) Urine Ketones Urine Blood Urine Nitrite Ur Leukocyte Esterase Urine RBC Urine WBC Ur Squamous Epith Cells Urine Bacteria Hyaline Casts COVID-19 (MARYANN) COVID-19 [employer] 02/03/23 15:50 MCV MCH MCHC RDW Plt Count MPV Immature Gran % (Auto) Neut % (Auto) Lymph % (Auto) [place] % (Auto) Eos % (Auto) Baso % (Auto) Lymph # (Auto) [place] # (Auto) Eos # (Auto) Baso # (Auto) Abs Immat Gran (auto) Absolute Neuts (auto) Absolute Nucleated RBC Nucleated RBC % (auto) PT INR aPTT Heparin Protocol 30.7 L D-Dimer High Sensitivty Anion Gap Estim Creat Clear Calc Estimated GFR Random Glucose Calcium Magnesium Total Bilirubin AST ALT Alkaline Phosphatase Troponin I High Sens B-Natriuretic Peptide Total Protein Albumin Urine Color Urine Appearance Urine pH Ur Specific [place] Urine Protein Urine Glucose (UA) Urine Ketones Urine Blood Urine Nitrite Ur Leukocyte Esterase Urine RBC Urine WBC Ur Squamous Epith Cells Urine Bacteria Hyaline Casts COVID-19 (MARYANN) COVID-19 Clin Com Imaging Radiologist's Impressions: Impressions Chest X-Ray 02/03/23 14:02 IMPRESSION: No acute parenchymal disease within the chest. Nondisplaced fracture which may be acute or chronic involving the right sixth rib. Assessment and Plan (1) New onset a-fib: Status: Acute (2) Acute non-ST elevation myocardial infarction (NSTEMI): Status: Acute Plan Pt is a 82-year-old female with a PMH significant for CAD, HTN, HLD, jri-hicxuoz-qdzevntls diabetes type 2, hx of brain aneurysm, and hypothyroid?who presents to the ED with?3 days of chest pain/pressure. Labs revealed troponin of 534.7 with repeat of 695.6. Patient will be admitted to the hospital on telemetry for treatment and further evaluation of NSTEMI and new onset AFib with RVR. NSTEMI Patient with chest pain/pressure, shortness of breath, diaphoresis, headache, shortness of breath Initial troponin 534.7 with repeat 695.6 EKG showed AFib with RVR of 130 with no evidence of ST elevations, but did show ST depressions in I, V3-V6 Continue heparin drip Continue aspirin, statin Echocardiogram Lipid panel Cardiology consult Monitor on telemetry New onset AFib with RVR EKG demonstrated AFib with RVR of 130, patient with occasional palpitations Patient given metoprolol IV and p.o. in the ED Possibly secondary to NSTEMI Continue metoprolol Cardiology consult Monitor on telemetry Elevated BNP Patient BNP 1195, baseline unknown Etiology unclear: Patient does not appear volume overloaded: No evidence on CXR, no JVD, no peripheral edema, patient denies orthopnea Follow BNP Transaminitis AST 102, ALT 96, alk-phos 172 Unclear etiology, patient asymptomatic, no history of drinking Consider abdominal ultrasound if labs remain elevated Follow CMP CKD stage 3 Creatinine 1.15 with BUN elevated at 32, estimated creatinine clearance 30.3 Baseline none known Follow BMP Anemia Patient with H&H of 9.229.9 at time of presentation, baseline unknown Possibly secondary to chronic kidney disease Follow CBC Vyj-niofejk-bmyxdmsjo diabetes type 2 Continue Jardiance, glipizide Hold metformin Sliding-scale insulin Diabetic diet Hypothyroidism Continue levothyroxine DNR/DNI Attending:?Dr. Lindsey DVT Prophylaxis: On heparin drip Pt will require a hospitalization of at least two nights for treatment and further evaluation of new onset AFib with RVR and?NSTEMI with heparin drip and specialist consultation. Time Spent With Patient Time: Total time managing care of this patient today ____ minutes. Quality Stroke Does the patient have a stroke diagnosis?: No VTE Prior VTE?: No VTE Risk Level:: Medical - moderate - high VTE Device Contraindication: Treatment Not Indicated VTE Drug Contraindication: N/A - Med Ordered
[2023-02-03] MEDS: Heparin Sodium,Porcine/1/2NS 25,000 UNIT/250 ML IV.SOLN 6.94 UNIT IVCONT (16:47)
--- NOTE | 2023-02-03 17:16 | PC.NURSE ---
Heparin infusing per protocol. Hospitalist at bedside for admission
[2023-02-03 18:33] VITALS: BP 112/55; PULSE 108; RESP 21; TEMP 36.6; O2SAT 98
[2023-02-03 19:14] VITALS: BP 110/58; PULSE 98; RESP 20; TEMP 36.3; O2SAT 97
[2023-02-03 19:40] LABS: Glucose, Whole Blood 167 mg/dL (60-115)
[2023-02-03] MEDS: glipiZIDE XL 5 MG TAB.ER.24 PO (20:40)
[2023-02-03] MEDS: Atorvastatin Calcium 80 MG TABLET PO (20:40)
[2023-02-03 21:00] LABS: Troponin-I High Sensitivity 794.2 ng/L (<3.5-17.0)
[2023-02-03 22:34] LABS: PTT Heparin Drip 132.2 SEC (53-77.9)
[2023-02-03 23:59] LABS: PTT Heparin Drip 74.8 SEC (53-77.9)
[2023-02-04] VITALS: BP 120/64; PULSE 83; RESP 18; TEMP 36.1; O2SAT 96
[2023-02-04] MEDS: 0.9 % Sodium Chloride Flush 3 ML SYRINGE IVFLUSH ×4 (00:10→20:51)
--- NOTE | 2023-02-04 02:20 | PC.NURSE ---
0000; PTT-HD 74.8, per protocol, decreasing doserate by 4units/kg/hr , next PTT-HD due 02/04/23 at 0605. Heparin drip now running at 8units/kg/hr, witnessed by secondary RN Jo-Ann
[2023-02-04 04:00] VITALS: BP 112/68; PULSE 91; RESP 18; TEMP 36.1; O2SAT 98
[2023-02-04] MEDS: Levothyroxine Sodium 75 MCG TABLET PO (05:04)
[2023-02-04 06:33] LABS: Hematocrit 29.1 % (37.0-47.0); Hemoglobin 8.8 g/dl (12.0-16.0); Mean Corpuscular HGB Conc 30.2 g/dl (31.0-35.0); Mean Corpuscular Hemoglobin 24.4 pg (27.0-33.0); Mean Corpuscular Volume 80.8 fL (80.0-98.0); Mean Platelet Volume 10.8 fL (9.4-12.3); Platelet Count 169 X10*3/uL (160-400); Red Cell Distribution Width 16.3 % (11.0-16.0); White Blood Count 4.4 X10*3/uL (4.8-10.8)
[2023-02-04 06:36] LABS: INTERNATIONAL NORM RATIO 1.1 (0.9-1.1); Prothrombin Time 12.7 SEC (10.0-13.1)
[2023-02-04 06:38] LABS: PTT Heparin Drip 71.1 SEC (53-77.9)
--- NOTE | 2023-02-04 07:00 | CA_ITS ---
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 The visually estimated ejection fraction is between 65-70%. - The basal inferior segment is akinetic. - No obvious valvular pathology seen on this study. Findings Left Ventricle Normal left ventricular cavity size. There is mildly increased left ventricular wall thickness. The left ventricular systolic function is normal. The visually estimated ejection fraction is between 65-70%. There is no evidence of regional wall motion abnormalities. Diastolic function is normal for age. Wall Motion Rest Echo Findings The basal inferior segment is akinetic. Right Ventricle Normal right ventricular cavity size. There is mildly decreased right ventricular systolic function. Atria Both atria are normal in size. Aortic Valve There is a normal trileaflet aortic valve. There is no aortic valve stenosis. There is no aortic valve regurgitation. Mitral Valve The mitral valve appears normal. There is trace mitral valve regurgitation. There is no mitral valve stenosis. Pulmonic Valve The pulmonic valve is likely normal. Tricuspid Valve Normal tricuspid valve structure. There is trace tricuspid valve regurgitation. There is no evidence of pulmonary hypertension. Great Vessels The asc aorta is normal in size. Venous The inferior vena cava is normal in size and collapses greater than 50% with inspiration. Pericardium/Pleural There is no evidence of pericardial effusion. Prior Study Comparison No prior study available for comparison. Recommendations, Care & Conclusions No obvious valvular pathology seen on this study. Measurements 2D Linear Measurements IVSd: 1.22 0.6-0.9/0.6-1.0 cm LVIDd: 3.13 3.9-5.3/4.2-5.9 cm LVIDd Index: 1.98 2.4-3.2/2.2-3.1 cm/m2 LVIDs: 2.12 2.0-3.6 cm LVPWd: 1.24 0.7-1.1 cm Ao Root: 2.70 2.1-3.5 cm LA Diam: 3.90 2.7-3.8/3.0-4.0 cm LAIDs Index: 2.47 1.5-2.3 cm/m2 LV Mass: 149.77 67-162/88-224 g LV Mass Index: 94.79 43-95/49-115 g/m2 LVOT Diam: 1.90 3.0+(-)1.3 cm 2D Systolic Function EF 4C: 73.80 >55% EF 2C: 64.00 >55% EF BiP: 69.30 >55% Mitral Valve MV Pk E: 0.80 MV Decel Time: 158.00 E'Lateral: 9.79 E'Medial: 6.09 E/E' Med: 13.10 E/E' Lat: 8.10 PHT: 46.00 MVA PHT: 4.78 Decel Crowley: 5.02 Aortic Valve AoV Pk Sheng: 1.25 AoV Mn Sheng: 0.83 AoV VTI: 0.26 AoV Pk Grad: 6.00 Aov Mn Grad: 3.00 CHRIS Cont.VTI: 2.18 LVOT LVOT Pk Sheng: 0.99 LVOT Mn Sheng: 0.71 LVOT VTI: 0.20 LVOT Pk Grad: 4.00 LVOT Mn Grad: 2.00 LVOT Diam: 1.90 LVOT Area: 2.84 Diastolic Function MV Pk E: 0.80 E'Medial: 6.09 E/E' Med: 13.10 E' Laterial: 9.79 E/E' Lat: 8.10 Right Ventricle TAPSE (mm): 14.30 Tricuspid Valve TR Pk Sheng: 2.32 TR Pk Grad: 22.00 Great Vessels Aorta Ao Root-2D: 2.70 2.0-3.7 cm Ao Asc: 3.10 2.1-3.4 cm Pulmonary Valve PV Pk Sheng: 1.00 Peak PV Grad: 4.00 Updated in Other Vendor System with Status of Final Jamaal Zelaya MD electronically signed on 02/04/2023 2:28:33 PM with status of Final
[2023-02-04 07:03] LABS: B Type Natriuretic Peptide 781 pg/mL (<100)
[2023-02-04 07:07] LABS: Alanine Aminotransferase 91 U/L (0-31); Albumin Level 3.1 g/dL (3.5-5.0); Alkaline Phosphatase 149 U/L (39-117); Anion Gap 10 (12-20); Aspartate Amino Transferase 114 U/L (5-31); Bilirubin Total 0.9 mg/dL (0.0-1.0); Blood Urea Nitrogen 29 mg/dL (9-16); Calcium 8.9 mg/dL (8.4-10.2); Carbon Dioxide 22 mmol/L (22-29); Chloride 109 mmol/L (96-108); Cholesterol 128 mg/dL; Estimated Glomerular Filt Rate > 60; Glucose Random 86 mg/dL (60-115); HDL Cholesterol 40 mg/dL; LDL Cholesterol Calculated 60 mg/dl; Potassium 4.5 mmol/L (3.3-5.1); Sodium 136 mmol/L (135-145); Total Protein 6.9 g/dL (6.5-8.0); Triglycerides 143 mg/dL
[2023-02-04 07:09] LABS: Glucose, Whole Blood 92 mg/dL (60-115)
[2023-02-04 07:18] VITALS: BP 110/66; PULSE 98; RESP 18; TEMP 36.9; O2SAT 98
[2023-02-04 08:13] LABS: Estimated Average Glucose 280 mg/dL; Hemoglobin A1c % 11.4 %
[2023-02-04 08:27] LABS: Iron 31 mcg/dL (30-160); Percent Iron Saturation 10 % (15-50); Total Iron Binding Capacity 325 mcg/dL (228-428); Unsaturated Iron Binding 294 ug/dL
[2023-02-04 08:35] LABS: Ferritin 23 ng/mL (10-250)
--- NOTE | 2023-02-04 09:07 | MHC.CM.PN ---
Patient is unavailable; CM spoke with Sister/HCP/BRICK SORTER/[employer]ren[employer] @ [phone] and addressed IMM with her (original will be mailed certified letter to HCP and a copy has been placed on the chart for Patient's review PRN). Patient lives alone in an apartment but her Sister/HCP/Elaine BRICK SORTER (44 hours/week) is her Caregiver. Home//resume said services is the goal and CM has initiated and will follow for dc planning. Patient is not covid vax'd and her PCP is from an [facility] is what Sister indicated).
[2023-02-04] MEDS: Metoprolol Succinate ER 25 MG TAB.ER.24H PO ×2 (09:21→11:09)
[2023-02-04] MEDS: Clopidogrel Bisulfate 75 MG TABLET PO (09:22)
[2023-02-04] MEDS: glipiZIDE XL 5 MG TAB.ER.24 PO ×2 (09:22→20:51)
[2023-02-04] MEDS: Losartan Potassium 50 MG TABLET 100 MG PO (09:22)
[2023-02-04] MEDS: Empagliflozin 25 MG TABLET PO (09:22)
[2023-02-04 09:28] LABS: Troponin-I High Sensitivity 555.5 ng/L (<3.5-17.0)
--- NOTE | 2023-02-04 09:48 | PM.CNCAR ---
History of Present Illness History of Present Illness Date of Service: 02/04/23 Chief complaint: NSTEMI, Afib w/ RVR Narrative: This is a cardiology consultation regarding atrial fibrillation as well as NSTEMI. Patient has a history of coronary disease, hypertension, dyslipidemia, diabetes as well as brain aneurysm. She presents to the hospital complaints of chest pain. She states that she has had discomfort in substernal area and essentially all over the chest. There was radiation to the throat as well as left arm. Subsequently, seen in the emergency room and she was found to be in atrial fibrillation rapid rate. She has been given rate control medications and also started on heparin drip. Subsequently admitted for further care. Patient is not able to speak much Irish and hence we used a Portuguese pharmacy technician per diem. Even with this, history is somewhat difficult but she is able to give some reasonable information. States that she generally lives alone but gets help from her sister. Other family members are not nearby. Otherwise, able to get around for the most part. Level of activity at baseline not very clear. Review of Systems Review of Systems: Yes all other systems are reviewed and are negative Constitutional: Constitutional: Reports as per HPI and Reports no additional constitutional complaints Eyes: Eyes: Reports as per HPI and Denies no additional eye complaints ENT: Denies system reviewed and no additional complaints, except as documented and Reports as per HPI Cardiovascular: Cardiovascular: Reports as per HPI, Reports no additional cardiovascular complaints, Denies acrocyanosis, Denies cool extremities, Reports chest pain, Denies leg edema, Denies lightheadedness, Reports palpitations and Denies dyspnea Respiratory: Respiratory: Reports as per HPI, Denies no additional respiratory complaints and Denies dyspnea Gastrointestinal: Gastrointestinal: Reports as per HPI and Denies no additional gastrointestinal complaints Genitourinary: Genitourinary: Reports as per HPI Musculoskeletal: Musculoskeletal: Reports no additional musculoskeletal complaints and Reports as per HPI Integumentary/Breasts: Skin/Breast: Reports system reviewed and no additional complaints, except as docu Neurologic: Reports system reviewed and no additional complaints, except as documented and Reports as per HPI Psychiatric: Psychiatric: Reports no additional psychiatric complaints and Reports as per HPI Endocrine: Endocrine: Reports no additional endocrine complaints, Reports as per HPI and Reports palpitations Hematologic/Lymphatic: Hematologic/Lymphatic: Reports no additional hematologic/lymphatic complaints and Reports as per HPI Allergic/Immunologic: Allergic/Immunologic: Reports no additional allergic/immunologic complaints and Reports as per [facility] Past Medical History Medical History Brain aneurysm Coronary artery disease Essential hypertension Subarachnoid hemorrhage Type 2 diabetes mellitus Family History Pertinent family history: No significant family history pertinent to this admission. Social History Social History Household Members: None Housing: House Do you presently have visiting nurse or other home services: Yes (home health aide) Patient Tobacco Use Status: Never used Tobacco e-Cigarette/Vaping Use: Never Used Second Hand Smoke Exposure: No service: No Current occupational status: retired Meds Allergies Allergy/AdvReac Type Severity Reaction Status Date / Time No Known Allergies Allergy Unverified 06/12/20 19:41 [No Known Allergies*] Active Medications: Current Medications Acetaminophen (Acetaminophen 325 Mg Tablet) 650 mg PO Q6H PRN PRN Reason: Pain, Mild (Pain Scale 1-3) Atorvastatin Calcium (Atorvastatin Calcium 80 Mg Tablet) 80 mg PO BEDTIME [facility] Last Admin: 02/03/23 20:40 Dose: 80 mg Clopidogrel Bisulfate (Clopidogrel Bisulfate 75 Mg Tablet) 75 mg PO DAILY [facility] Last Admin: 02/04/23 09:22 Dose: 75 mg Docusate Sodium (Docusate Sodium 100 Mg Capsule) 100 mg PO DAILY PRN PRN Reason: Constipation Empagliflozin (Empagliflozin 25 Mg Tablet) 25 mg PO DAILY [facility] Last Admin: 02/04/23 09:22 Dose: 25 mg Glipizide (Glipizide Xl 5 Mg Tab.Er.24) 5 mg PO BID [facility] Last Admin: 02/04/23 09:22 Dose: 5 mg Glucose (Glucose Gel 15 Gm Gel..Gram.) 15 gm PO Q15M PRN; Protocol PRN Reason: per Hypoglycemia Standing Ord. Heparin Sodium (Porcine) (Heparin Sodium,Porcine 5,000 Unit/Ml Vial) 2,300 unit 40 unit/kg (2300 unit) IVPUSH PROTOCOL BOLUS PRN; Protocol PRN Reason: 40 unit/kg - Heparin Protocol Heparin Sodium (Porcine) (Heparin Sodium,Porcine 5,000 Unit/Ml Vial) 4,600 unit 80 unit/kg (4600 unit) IVPUSH PROTOCOL BOLUS PRN; Protocol PRN Reason: 80 unit/kg - Heparin Protocol Heparin Sodium/Sodium Chloride (Heparin Sodium,Porcine/1/2ns) 25,000 unit in 250 mls @ 0 mls/hr IVCONT .Q0M [facility]; Protocol Last Titration: 02/04/23 00:06 Dose: 8 units/kg/hr, 4.62 mls/hr Dextrose (D10) 250 mls @ 750 mls/hr IV Q15M PRN; Protocol PRN Reason: per Hypoglycemia Standing Ord. Insulin Human Lispro (Insulin Lispro 100 Unit/Ml 3 Ml Vial) 0 unit SUBCUT QIDACHS [facility]; Protocol Last Admin: 02/04/23 07:33 Dose: Not Given Levothyroxine Sodium (Levothyroxine Sodium 75 Mcg Tablet) 75 mcg PO DAILY@0600 [facility] Last Admin: 02/04/23 05:04 Dose: 75 mcg Losartan Potassium (Losartan Potassium 50 Mg Tablet) 100 mg PO DAILY [facility]; Protocol Last Admin: 02/04/23 09:22 Dose: 100 mg Metoprolol Succinate (Metoprolol Succinate Er 25 Mg Tab.Er.24h) 25 mg PO DAILY [facility]; Protocol Last Admin: 02/04/23 09:21 Dose: 25 mg Ondansetron HCl (Ondansetron Hcl 4 Mg/2 Ml Vial) 4 mg IVPUSH Q8H PRN PRN Reason: Nausea and Vomiting Sodium Chloride (0.9 % Sodium Chloride Flush 3 Ml Syringe) 3 ml IVFLUSH QSHIFT [facility] Last Admin: 02/04/23 09:24 Dose: 3 ml Home Medications Medication Instructions Recorded Confirmed Last Taken Type atorvastatin 80 mg tablet 80 mg PO BEDTIME 02/03/23 02/03/23 02/02/23 History clopidogrel 75 mg tablet 75 mg PO DAILY 02/03/23 02/03/23 02/03/23 History empagliflozin 25 mg tablet 25 mg PO DAILY 02/03/23 02/03/23 02/03/23 History (Jardiance) glipizide 2.5 mg tablet, extended 5 mg PO BID 02/03/23 02/03/23 02/03/23 History release 24 hr levothyroxine 75 mcg tablet 75 mcg PO DAILY 02/03/23 02/03/23 02/03/23 History losartan 50 mg tablet 100 mg PO DAILY 02/03/23 02/03/23 02/03/23 History metformin 1,000 mg tablet 1,000 mg PO BID 02/03/23 02/03/23 02/03/23 History metoprolol succinate 25 mg 25 mg PO DAILY 02/03/23 02/03/23 02/03/23 History tablet,extended release 24 hr Physical Exam Vital Signs: Vital Signs: Last Vital Signs Temp 98.5 F 02/04/23 07:18 Pulse 98 02/04/23 07:18 Resp 18 02/04/23 07:18 BP 110/66 02/04/23 07:18 Pulse Ox 98 02/04/23 07:18 O2 Del Method Room Air 02/04/23 07:18 BMI result Body Mass Index 23.3 Const: General: comfortable and no acute distress Orientation/consciousness: patient oriented x3 HEENT: Other: Unremarkable Head: Yes normal to inspection Neck: Neck: Yes normal visual inspection Chest: Chest palpation & inspection: normal inspection of the chest Resp: Auscultation: clear to auscultation bilaterally Cardio: Palpation: normal PMI Heart sounds: S1 normal heart sound present, S2 normal heart sound present, no gallops, no murmurs and no rubs GI: Palpation (GI): Soft to palpation Back/Spine/Pelvis: Other: unremarkable Skin: General skin exam: no rashes or lesions noted Neuro: General: patient oriented x3 Extrem: General: Yes normal to inspection Psych: Mental Status: mental status grossly normal Objective Labs and Meds 02/04/23 06:14 02/04/23 06:14 Lab results: Laboratory Results - last 24 hr 02/03/23 02/03/23 02/03/23 13:25 13:25 13:51 WBC 5.3 RBC 3.76 L Hgb 9.2 L Hct 29.9 L MCV 79.5 L MCH 24.5 L MCHC 30.8 L RDW 16.3 H Plt Count 191 MPV 9.7 Immature Gran % (Auto) 0.4 Neut % (Auto) 73.1 H Lymph % (Auto) 16.4 L Keith % (Auto) 8.9 Eos % (Auto) 0.6 Baso % (Auto) 0.6 Lymph # (Auto) 0.9 L Keith # (Auto) 0.5 Eos # (Auto) 0.0 Baso # (Auto) 0.0 Abs Immat Gran (auto) 0.02 Absolute Neuts (auto) 3.9 Absolute Nucleated RBC 0.000 Nucleated RBC % (auto) 0.0 PT INR aPTT Heparin Protocol D-Dimer High Sensitivty Sodium Potassium Chloride Carbon Dioxide Anion Gap BUN Creatinine Estim Creat Clear Calc Estimated GFR POC Glucose Random Glucose Estimat Average Glucose Hemoglobin A1c % Calcium Magnesium Iron TIBC % Saturation Unsat Iron Binding Ferritin Total Bilirubin AST ALT Alkaline Phosphatase Troponin I High Sens B-Natriuretic Peptide Total Protein Albumin Triglycerides Cholesterol LDL Cholesterol, Calc HDL Cholesterol Urine Color Yellow Urine Appearance Clear Urine pH 5.5 Ur Specific [place] >= 1.030 H Urine Protein Negative Urine Glucose (UA) >=1000 H Urine Ketones Trace Urine Blood Negative Urine Nitrite Negative Ur Leukocyte Esterase Negative Urine RBC 0-2 Urine WBC 0-5 Ur Squamous Epith Cells 0-2 Urine Bacteria None Seen Hyaline Casts 0-2 COVID-19 (MARYANN) Negative COVID-19 [employer] See Note 02/03/23 02/03/23 02/03/23 13:51 13:51 13:51 WBC RBC Hgb Hct MCV MCH MCHC RDW Plt Count MPV Immature Gran % (Auto) Neut % (Auto) Lymph % (Auto) Keith % (Auto) Eos % (Auto) Baso % (Auto) Lymph # (Auto) Keith # (Auto) Eos # (Auto) Baso # (Auto) Abs Immat Gran (auto) Absolute Neuts (auto) Absolute Nucleated RBC Nucleated RBC % (auto) PT 12.4 INR 1.1 aPTT Heparin Protocol D-Dimer High Sensitivty 151 Sodium 133 L Potassium 4.8 Chloride 106 Carbon Dioxide 19 L Anion Gap 13 BUN 32 H Creatinine 1.15 Estim Creat Clear Calc 30.3 Estimated GFR 45 POC Glucose Random Glucose 361 H* Estimat Average Glucose Hemoglobin A1c % Calcium 9.5 Magnesium 1.9 Iron TIBC % Saturation Unsat Iron Binding Ferritin Total Bilirubin 1.0 AST 102 H ALT 96 H Alkaline Phosphatase 172 H Troponin I High Sens 534.7 H* B-Natriuretic Peptide Total Protein 7.8 Albumin 3.5 Triglycerides Cholesterol LDL Cholesterol, Calc HDL Cholesterol Urine Color Urine Appearance Urine pH Ur Specific [place] Urine Protein Urine Glucose (UA) Urine Ketones Urine Blood Urine Nitrite Ur Leukocyte Esterase Urine RBC Urine WBC Ur Squamous Epith Cells Urine Bacteria Hyaline Casts COVID-19 (MARYANN) COVID-19 [employer] 02/03/23 02/03/2323 13:51 15:50 15:50 WBC 4.7 L RBC 3.63 L Hgb 8.8 L Hct 29.0 L MCV 79.9 L MCH 24.2 L MCHC 30.3 L RDW 16.4 H Plt Count 170 MPV 9.9 Immature Gran % (Auto) Neut % (Auto) Lymph % (Auto) Keith % (Auto) Eos % (Auto) Baso % (Auto) Lymph # (Auto) Keith # (Auto) Eos # (Auto) Baso # (Auto) Abs Immat Gran (auto) Absolute Neuts (auto) Absolute Nucleated RBC 0.000 Nucleated RBC % (auto) 0.0 PT INR aPTT Heparin Protocol D-Dimer High Sensitivty Sodium Potassium Chloride Carbon Dioxide Anion Gap BUN Creatinine Estim Creat Clear Calc Estimated GFR POC Glucose Random Glucose Estimat Average Glucose Hemoglobin A1c % Calcium Magnesium Iron TIBC % Saturation Unsat Iron Binding Ferritin Total Bilirubin AST ALT Alkaline Phosphatase Troponin I High Sens 695.6 H* B-Natriuretic Peptide 1195 H Total Protein Albumin Triglycerides Cholesterol LDL Cholesterol, Calc HDL Cholesterol Urine Color Urine Appearance Urine pH Ur Specific [place] Urine Protein Urine Glucose (UA) Urine Ketones Urine Blood Urine Nitrite Ur Leukocyte Esterase Urine RBC Urine WBC Ur Squamous Epith Cells Urine Bacteria Hyaline Casts COVID-19 (MARYANN) COVID-19 Clin Com 02/03/23 02/03/23 02/03/23 15:50 19:34 20:17 WBC RBC Hgb Hct MCV MCH MCHC RDW Plt Count MPV Immature Gran % (Auto) Neut % (Auto) Lymph % (Auto) Keith % (Auto) Eos % (Auto) Baso % (Auto) Lymph # (Auto) Keith # (Auto) Eos # (Auto) Baso # (Auto) Abs Immat Gran (auto) Absolute Neuts (auto) Absolute Nucleated RBC Nucleated RBC % (auto) PT INR aPTT Heparin Protocol 30.7 L D-Dimer High Sensitivty Sodium Potassium Chloride Carbon Dioxide Anion Gap BUN Creatinine Estim Creat Clear Calc Estimated GFR POC Glucose 167 H Random Glucose Estimat Average Glucose Hemoglobin A1c % Calcium Magnesium Iron TIBC % Saturation Unsat Iron Binding Ferritin Total Bilirubin AST ALT Alkaline Phosphatase Troponin I High Sens 794.2 H* B-Natriuretic Peptide Total Protein Albumin Triglycerides Cholesterol LDL Cholesterol, Calc HDL Cholesterol Urine Color Urine Appearance Urine pH Ur Specific [place] Urine Protein Urine Glucose (UA) Urine Ketones Urine Blood Urine Nitrite Ur Leukocyte Esterase Urine RBC Urine WBC Ur Squamous Epith Cells Urine Bacteria Hyaline Casts COVID-19 (MARYANN) COVID-19 [employer] 02/03/23 02/03/23 02/04/23 21:57 23:43 06:14 WBC Cancelled RBC Cancelled Hgb Cancelled Hct Cancelled MCV Cancelled MCH Cancelled MCHC Cancelled RDW Cancelled Plt Count Cancelled MPV Cancelled Immature Gran % (Auto) Neut % (Auto) Lymph % (Auto) Keith % (Auto) Eos % (Auto) Baso % (Auto) Lymph # (Auto) Keith # (Auto) Eos # (Auto) Baso # (Auto) Abs Immat Gran (auto) Absolute Neuts (auto) Absolute Nucleated RBC Cancelled Nucleated RBC % (auto) Cancelled PT INR aPTT Heparin Protocol 132.2 H* D 74.8 D D-Dimer High Sensitivty Sodium Potassium Chloride Carbon Dioxide Anion Gap BUN Creatinine Estim Creat Clear Calc Estimated GFR POC Glucose Random Glucose Estimat Average Glucose Hemoglobin A1c % Calcium Magnesium Iron TIBC % Saturation Unsat Iron Binding Ferritin Total Bilirubin AST ALT Alkaline Phosphatase Troponin I High Sens B-Natriuretic Peptide Total Protein Albumin Triglycerides Cholesterol LDL Cholesterol, Calc HDL Cholesterol Urine Color Urine Appearance Urine pH Ur Specific [place] Urine Protein Urine Glucose (UA) Urine Ketones Urine Blood Urine Nitrite Ur Leukocyte Esterase Urine RBC Urine WBC Ur Squamous Epith Cells Urine Bacteria Hyaline Casts COVID-19 (MARYANN) COVID-19 [employer] 02/04/23 02/04/23 02/04/23 06:14 06:14 06:14 WBC 4.4 L RBC 3.60 L Hgb 8.8 L Hct 29.1 L MCV 80.8 MCH 24.4 L MCHC 30.2 L RDW 16.3 H Plt Count 169 MPV 10.8 Immature Gran % (Auto) Neut % (Auto) Lymph % (Auto) Keith % (Auto) Eos % (Auto) Baso % (Auto) Lymph # (Auto) Keith # (Auto) Eos # (Auto) Baso # (Auto) Abs Immat Gran (auto) Absolute Neuts (auto) Absolute Nucleated RBC 0.000 Nucleated RBC % (auto) 0.0 PT Cancelled INR Cancelled aPTT Heparin Protocol D-Dimer High Sensitivty Sodium 136 Potassium 4.5 Chloride 109 H Carbon Dioxide 22 Anion Gap 10 L BUN 29 H Creatinine 0.81 Estim Creat Clear Calc 43.0 Estimated GFR > 60 POC Glucose Random Glucose 86 Estimat Average Glucose Hemoglobin A1c % Calcium 8.9 D Magnesium Iron 31 TIBC 325 % Saturation 10 L Unsat Iron Binding 294 Ferritin 23 Total Bilirubin 0.9 AST 114 H ALT 91 H Alkaline Phosphatase 149 H Troponin I High Sens B-Natriuretic Peptide Total Protein 6.9 Albumin 3.1 L Triglycerides 143 Cholesterol 128 LDL Cholesterol, Calc 60 HDL Cholesterol 40 Urine Color Urine Appearance Urine pH Ur Specific [place] Urine Protein Urine Glucose (UA) Urine Ketones Urine Blood Urine Nitrite Ur Leukocyte Esterase Urine RBC Urine WBC Ur Squamous Epith Cells Urine Bacteria Hyaline Casts COVID-19 (MARYANN) COVID-19 [employer] 02/04/23 02/04/23 02/04/23 06:14 06:14 06:14 WBC RBC Hgb Hct MCV MCH MCHC RDW Plt Count MPV Immature Gran % (Auto) Neut % (Auto) Lymph % (Auto) Keith % (Auto) Eos % (Auto) Baso % (Auto) Lymph # (Auto) Keith # (Auto) Eos # (Auto) Baso # (Auto) Abs Immat Gran (auto) Absolute Neuts (auto) Absolute Nucleated RBC Nucleated RBC % (auto) PT 12.7 INR 1.1 aPTT Heparin Protocol 71.1 D-Dimer High Sensitivty Sodium Potassium Chloride Carbon Dioxide Anion Gap BUN Creatinine Estim Creat Clear Calc Estimated GFR POC Glucose Random Glucose Estimat Average Glucose 280 Hemoglobin A1c % 11.4 Calcium Magnesium Iron TIBC % Saturation Unsat Iron Binding Ferritin Total Bilirubin AST ALT Alkaline Phosphatase Troponin I High Sens B-Natriuretic Peptide 781 H Total Protein Albumin Triglycerides Cholesterol LDL Cholesterol, Calc HDL Cholesterol Urine Color Urine Appearance Urine pH Ur Specific [place] Urine Protein Urine Glucose (UA) Urine Ketones Urine Blood Urine Nitrite Ur Leukocyte Esterase Urine RBC Urine WBC Ur Squamous Epith Cells Urine Bacteria Hyaline Casts COVID-19 (MARYANN) COVID-19 [employer] 02/04/23 02/04/23 07:05 08:27 WBC RBC Hgb Hct MCV MCH MCHC RDW Plt Count MPV Immature Gran % (Auto) Neut % (Auto) Lymph % (Auto) Keith % (Auto) Eos % (Auto) Baso % (Auto) Lymph # (Auto) Keith # (Auto) Eos # (Auto) Baso # (Auto) Abs Immat Gran (auto) Absolute Neuts (auto) Absolute Nucleated RBC Nucleated RBC % (auto) PT INR aPTT Heparin Protocol D-Dimer High Sensitivty Sodium Potassium Chloride Carbon Dioxide Anion Gap BUN Creatinine Estim Creat Clear Calc Estimated GFR POC Glucose 92 Random Glucose Estimat Average Glucose Hemoglobin A1c % Calcium Magnesium Iron TIBC % Saturation Unsat Iron Binding Ferritin Total Bilirubin AST ALT Alkaline Phosphatase Troponin I High Sens 555.5 H* B-Natriuretic Peptide Total Protein Albumin Triglycerides Cholesterol LDL Cholesterol, Calc HDL Cholesterol Urine Color Urine Appearance Urine pH Ur Specific [place] Urine Protein Urine Glucose (UA) Urine Ketones Urine Blood Urine Nitrite Ur Leukocyte Esterase Urine RBC Urine WBC Ur Squamous Epith Cells Urine Bacteria Hyaline Casts COVID-19 (MARYANN) COVID-19 Clin Com ECG Interpretation: EKG with atrial fibrillation rate of 130/Min; lateral downsloping STs. Imaging Radiologist's impression: Impressions Chest X-Ray 02/03/23 14:02 IMPRESSION: No acute parenchymal disease within the chest. Nondisplaced fracture which may be acute or chronic involving the right sixth rib. Assessment and Plan (1) Acute non-ST elevation myocardial infarction (NSTEMI): Status: Acute Cardiac catheterization reviewed from 2019. Left main without any significant disease. Lad had mid 60% stenosis. In the circumflex, mid section with 70% stenosis and distal 80% stenosis. First marginal had 70% stenosis. 100% proximal RCA stenosis collateralized by [id number] system with diffuse PDA disease and poor runoff. Overall, medical therapy was recommended. Current NSTEMI could be from atrial fibrillation with rapid rate and secondary but could also be a primary event. Difficult to say. Continue IV heparin for about 48 hours or so. We can hold her losartan uptitrate the beta-blockers for rate control. On statins, but LFTs also seem abnormal- uncertain etiology. Considering the prior anatomy, mainly towards conservative care. Will follow up with you tomorrow and make definitive plans after further discussion with patient. (2) New onset a-fib: Status: Acute Increase beta-blockers and hold losartan for blood pressure management. Will need long-term anticoagulation with an agent like Eliquis. Will need to clarify if there is any contraindication because of intracranial aneurysm/stenting. Plan Discussed with Dr. Arambula. Time Spent With Patient Time: Total time managing care of this patient today ____ minutes. Procedures Date of Service Date of Service: 02/04/23
[2023-02-04 11:09] LABS: Glucose, Whole Blood 312 mg/dL (60-115)
[2023-02-04] MEDS: Insulin Lispro 100 UNIT/ML 3 ML VIAL SUBCUT ×3 (11:09→20:51)
[2023-02-04 11:31] VITALS: BP 121/61; PULSE 96; RESP 18; TEMP 36.8; O2SAT 98
[2023-02-04] MEDS: iohexoL 350 MG/ML 100 ML INFUS..BTL IV (13:02)
[2023-02-04 15:05] VITALS: BP 90/48; PULSE 96; RESP 20; TEMP 36.7; O2SAT 99
--- NOTE | 2023-02-04 15:45 | P.PNIM_ITS ---
Subjective Subjective Date of Service: 02/04/23 Interval History: CP resolved in AF, rate 90s-100s Review of Systems Review of Systems: Yes all other systems are reviewed and are negative Physical Exam Vital Signs: Vital Signs: Last Vital Signs Temp 98.1 F 02/04/23 15:05 Pulse 96 02/04/23 15:05 Resp 20 02/04/23 15:05 BP 90/48 L 02/04/23 15:05 Pulse Ox 99 02/04/23 15:05 O2 Del Method Room Air 02/04/23 15:05 BMI result Body Mass Index 23.3 Gen: in no acute distress HEENT: sclera anicteric, moist mucus membranes Neck: supple Lungs: clear bilaterally Heart: irregularly irregular Abd: soft, non-tender, non-distended Ext: no edema Skin: warm/well-perfused Neuro: alert and oriented x3, no focal findings Psych: appropriate affect Objective Data Active Medications Acetaminophen (Acetaminophen 325 Mg Tablet) 650 mg PO Q6H PRN PRN Reason: Pain, Mild (Pain Scale 1-3) Atorvastatin Calcium (Atorvastatin Calcium 80 Mg Tablet) 80 mg PO BEDTIME [facility] Last Admin: 02/03/23 20:40 Dose: 80 mg Documented By: MADHU Clopidogrel Bisulfate (Clopidogrel Bisulfate 75 Mg Tablet) 75 mg PO DAILY [facility] Last Admin: 02/04/23 09:22 Dose: 75 mg Documented By: DONNA Docusate Sodium (Docusate Sodium 100 Mg Capsule) 100 mg PO DAILY PRN PRN Reason: Constipation Empagliflozin (Empagliflozin 25 Mg Tablet) 25 mg PO DAILY [facility] Last Admin: 02/04/23 09:22 Dose: 25 mg Documented By: DONNA Glipizide (Glipizide Xl 5 Mg Tab.Er.24) 5 mg PO BID [facility] Last Admin: 02/04/23 09:22 Dose: 5 mg Documented By: DONNA Glucose (Glucose Gel 15 Gm Gel..Gram.) 15 gm PO Q15M PRN; Protocol PRN Reason: per Hypoglycemia Standing Ord. Heparin Sodium (Porcine) (Heparin Sodium,Porcine 5,000 Unit/Ml Vial) 2,300 unit 40 unit/kg (2300 unit) IVPUSH PROTOCOL BOLUS PRN; Protocol PRN Reason: 40 unit/kg - Heparin Protocol Heparin Sodium (Porcine) (Heparin Sodium,Porcine 5,000 Unit/Ml Vial) 4,600 unit 80 unit/kg (4600 unit) IVPUSH PROTOCOL BOLUS PRN; Protocol PRN Reason: 80 unit/kg - Heparin Protocol Heparin Sodium/Sodium Chloride (Heparin Sodium,Porcine/1/2ns) 25,000 unit in 250 mls @ 0 mls/hr IVCONT .Q0M [facility]; Protocol Last Titration: 02/04/23 07:28 Dose: 8 units/kg/hr, 4.62 mls/hr Documented By: DONNA Co-signed By: SARIKA Dextrose ([id number]) 250 mls @ 750 mls/hr IV Q15M PRN; Protocol PRN Reason: per Hypoglycemia Standing Ord. Insulin Human Lispro (Insulin Lispro 100 Unit/Ml 3 Ml Vial) 0 unit SUBCUT QIDACHS [facility]; Protocol Last Admin: 02/04/23 11:09 Dose: 8 unit Documented By: DONNA Levothyroxine Sodium (Levothyroxine Sodium 75 Mcg Tablet) 75 mcg PO DAILY@0600 [facility] Last Admin: 02/04/23 05:04 Dose: 75 mcg Documented By: ELIZABETH Metoprolol Succinate (Metoprolol Succinate Er 50 Mg Tab.Er.24h) 50 mg PO DAILY [facility]; Protocol Ondansetron HCl (Ondansetron Hcl 4 Mg/2 Ml Vial) 4 mg IVPUSH Q8H PRN PRN Reason: Nausea and Vomiting Sodium Chloride (0.9 % Sodium Chloride Flush 3 Ml Syringe) 3 ml IVFLUSH QSHIFT [facility] Last Admin: 02/04/23 09:24 Dose: 3 ml Documented By: DONNA Labs 02/04/23 06:14 02/04/23 06:14 Labs: Laboratory Results - last 24 hr 02/03/23 02/03/23 02/03/23 15:50 15:50 15:50 MCV 79.9 L MCH 24.2 L MCHC 30.3 L RDW 16.4 H Plt Count 170 MPV 9.9 Absolute Nucleated RBC 0.000 Nucleated RBC % (auto) 0.0 PT INR aPTT Heparin Protocol 30.7 L Anion Gap Estim Creat Clear Calc Estimated GFR POC Glucose Random Glucose Estimat Average Glucose Hemoglobin A1c % Calcium Iron TIBC % Saturation Unsat Iron Binding Ferritin Total Bilirubin AST ALT Alkaline Phosphatase Troponin I High Sens 695.6 H* B-Natriuretic Peptide Total Protein Albumin Triglycerides Cholesterol LDL Cholesterol, Calc HDL Cholesterol 02/03/23 02/03/23 02/03/23 19:34 20:17 21:57 MCV MCH MCHC RDW Plt Count MPV Absolute Nucleated RBC Nucleated RBC % (auto) PT INR aPTT Heparin Protocol 132.2 H* D Anion Gap Estim Creat Clear Calc Estimated GFR POC Glucose 167 H Random Glucose Estimat Average Glucose Hemoglobin A1c % Calcium Iron TIBC % Saturation Unsat Iron Binding Ferritin Total Bilirubin AST ALT Alkaline Phosphatase Troponin I High Sens 794.2 H* B-Natriuretic Peptide Total Protein Albumin Triglycerides Cholesterol LDL Cholesterol, Calc HDL Cholesterol 02/03/23 02/04/23 02/04/23 23:43 06:14 06:14 MCV Cancelled MCH Cancelled MCHC Cancelled RDW Cancelled Plt Count Cancelled MPV Cancelled Absolute Nucleated RBC Cancelled Nucleated RBC % (auto) Cancelled PT Cancelled INR Cancelled aPTT Heparin Protocol 74.8 D Anion Gap Estim Creat Clear Calc Estimated GFR POC Glucose Random Glucose Estimat Average Glucose Hemoglobin A1c % Calcium Iron TIBC % Saturation Unsat Iron Binding Ferritin Total Bilirubin AST ALT Alkaline Phosphatase Troponin I High Sens B-Natriuretic Peptide Total Protein Albumin Triglycerides Cholesterol LDL Cholesterol, Calc HDL Cholesterol 02/04/23 02/04/23 02/04/23 06:14 06:14 06:14 MCV 80.8 MCH 24.4 L MCHC 30.2 L RDW 16.3 H Plt Count 169 MPV 10.8 Absolute Nucleated RBC 0.000 Nucleated RBC % (auto) 0.0 PT INR aPTT Heparin Protocol Anion Gap 10 L Estim Creat Clear Calc 43.0 Estimated GFR > 60 POC Glucose Random Glucose 86 Estimat Average Glucose Hemoglobin A1c % Calcium 8.9 D Iron 31 TIBC 325 % Saturation 10 L Unsat Iron Binding 294 Ferritin 23 Total Bilirubin 0.9 AST 114 H ALT 91 H Alkaline Phosphatase 149 H Troponin I High Sens B-Natriuretic Peptide 781 H Total Protein 6.9 Albumin 3.1 L Triglycerides 143 Cholesterol 128 LDL Cholesterol, Calc 60 HDL Cholesterol 40 02/04/23 02/04/23 02/04/23 06:14 06:14 07:05 MCV MCH MCHC RDW Plt Count MPV Absolute Nucleated RBC Nucleated RBC % (auto) PT 12.7 INR 1.1 aPTT Heparin Protocol 71.1 Anion Gap Estim Creat Clear Calc Estimated GFR POC Glucose 92 Random Glucose Estimat Average Glucose 280 Hemoglobin A1c % 11.4 Calcium Iron TIBC % Saturation Unsat Iron Binding Ferritin Total Bilirubin AST ALT Alkaline Phosphatase Troponin I High Sens B-Natriuretic Peptide Total Protein Albumin Triglycerides Cholesterol LDL Cholesterol, Calc HDL Cholesterol 02/04/23 02/04/23 08:27 11:02 MCV MCH MCHC RDW Plt Count MPV Absolute Nucleated RBC Nucleated RBC % (auto) PT INR aPTT Heparin Protocol Anion Gap Estim Creat Clear Calc Estimated GFR POC Glucose 312 H Random Glucose Estimat Average Glucose Hemoglobin A1c % Calcium Iron TIBC % Saturation Unsat Iron Binding Ferritin Total Bilirubin AST ALT Alkaline Phosphatase Troponin I High Sens 555.5 H* B-Natriuretic Peptide Total Protein Albumin Triglycerides Cholesterol LDL Cholesterol, Calc HDL Cholesterol Assessment and Plan (1) Acute non-ST elevation myocardial infarction (NSTEMI): Status: Acute (2) New onset a-fib: Status: Acute Plan d#2 82yo F with CAD with nonstentable dz, HTN, HLD, DM2, hx brain aneursym s/p stenting, hypothyroidism presenting with chest pain/pressure x3d admitted for NSTEMI, new-onset AF/RVR # NSTEMI - Cardiology consulted, medical management with heparin gtt, aspirin, statin, metoprolol; TTE pending - given intracranial stent hx/aneurysm, will get CT angio of head # new-onset AF/RVR - increase metoprolol, on heparin gtt for AC at this point # transamniasemia - unclear cause, recheck LFTs in AM # ZHANE - resolved, SCr now normal # CANDE - replete # DM2, A1c 11.4 - continue Jardiance, glipizide, radha-dose lispro; hold MTF # hypothyroidism - LT4 # VTE ppx: heparin # dispo: TBD In my clinical judgment, the patient requires continued inpatient hospitalization for the following reasons: heparinization for NSTEMI Time Spent With Patient Time: Total time managing care of this patient today __45__ minutes. Quality Stroke Does the patient have a stroke diagnosis?: No VTE Prior VTE?: No VTE Risk Level:: Medical - moderate - high VTE Device Contraindication: Treatment Not Indicated VTE Drug Contraindication: N/A - Med Ordered
[2023-02-04 16:01] LABS: PTT Heparin Drip 78.2 SEC (53-77.9)
[2023-02-04 16:06] LABS: Glucose, Whole Blood 152 mg/dL (60-115)
[2023-02-04] MEDS: Heparin Sodium,Porcine/1/2NS 25,000 UNIT/250 ML IV.SOLN 3.47 UNIT IVCONT (16:31)
[2023-02-04 19:04] VITALS: BP 125/83; PULSE 119; RESP 20; TEMP 36.6; O2SAT 98
[2023-02-04 19:36] LABS: Glucose, Whole Blood 194 mg/dL (60-115)
[2023-02-04] MEDS: Atorvastatin Calcium 80 MG TABLET PO (20:51)
[2023-02-04 22:52] LABS: PTT Heparin Drip 59.9 SEC (53-77.9)
[2023-02-05] VITALS (7 sets, daily range): BP systolic 98–135; BP diastolic 55–84; PULSE 82–103; RESP 16–98; TEMP 35.8–36.7; O2SAT 96–99
--- NOTE | 2023-02-05 | ECG_ITS ---
Test Reason : CP Blood Pressure : / mmHG Vent. Rate : 092 BPM Atrial Rate : 000 BPM P-R Int : 000 ms QRS Dur : 080 ms QT Int : 358 ms P-R-T Axes : 000 -09 -67 degrees QTc Int : 442 ms Atrial fibrillation Nonspecific ST and T wave abnormality Abnormal ECG When compared with ECG of 03-FEB-2023 13:09, Nonspecific T wave abnormality now evident in Inferior leads Nonspecific T wave abnormality, worse in Anterior leads T wave inversion no longer evident in Lateral leads Referred By: Andrew Arambula Electronically Signed By:Jamaal Alonso
[2023-02-05] MEDS: traMADoL HCL 50 MG TABLET PO (04:39)
[2023-02-05] MEDS: Levothyroxine Sodium 75 MCG TABLET PO (04:39)
[2023-02-05 04:42] LABS: Hematocrit 28.8 % (37.0-47.0); Hemoglobin 8.8 g/dl (12.0-16.0); Mean Corpuscular HGB Conc 30.6 g/dl (31.0-35.0); Mean Corpuscular Hemoglobin 24.1 pg (27.0-33.0); Mean Corpuscular Volume 78.9 fL (80.0-98.0); Mean Platelet Volume 10.2 fL (9.4-12.3); Platelet Count 159 X10*3/uL (160-400); Red Blood Count 3.65 X10*6/uL (4.20-5.50); Red Cell Distribution Width 16.5 % (11.0-16.0); White Blood Count 3.5 X10*3/uL (4.8-10.8)
[2023-02-05 05:00] LABS: PTT Heparin Drip 59.1 SEC (53-77.9)
[2023-02-05 05:04] LABS: Anion Gap 11 (12-20); Blood Urea Nitrogen 23 mg/dL (9-16); Calcium 8.1 mg/dL (8.4-10.2); Carbon Dioxide 21 mmol/L (22-29); Chloride 109 mmol/L (96-108); Creatinine Clr Calc Pharmacy 41.5; Estimated Glomerular Filt Rate > 60; Glucose Random 95 mg/dL (60-115); Potassium 4.2 mmol/L (3.3-5.1); Sodium 137 mmol/L (135-145)
[2023-02-05] MEDS: Metoprolol Succinate ER 50 MG TAB.ER.24H PO ×2 (07:44→20:01)
[2023-02-05] MEDS: Ferrous Sulfate 324 MG TABLET.DR PO (07:44)
[2023-02-05] MEDS: glipiZIDE XL 5 MG TAB.ER.24 PO ×2 (07:44→20:00)
[2023-02-05] MEDS: Clopidogrel Bisulfate 75 MG TABLET PO (07:44)
[2023-02-05] MEDS: Empagliflozin 25 MG TABLET PO (07:44)
[2023-02-05 07:58] LABS: Glucose, Whole Blood 119 mg/dL (60-115)
[2023-02-05 08:11] LABS: Alanine Aminotransferase 100 U/L (0-31); Albumin Level 3.1 g/dL (3.5-5.0); Alkaline Phosphatase 171 U/L (39-117); Aspartate Amino Transferase 131 U/L (5-31); Bilirubin Direct 0.3 mg/dL (0.0-0.5); Bilirubin Total 0.6 mg/dL (0.0-1.0); Magnesium 1.9 mg/dL (1.6-2.6); Total Protein 6.7 g/dL (6.5-8.0)
--- NOTE | 2023-02-05 09:46 | HO.PM.IMPN ---
Subjective Subjective Date of Service: 02/05/23 Interval History: c/o lower abd pain, constipation with no BM x3d no chest pain no dyspnea no palpitations a little lightheaded with standing still in AF, rate 100s-110s Review of Systems Review of Systems: Yes all other systems are reviewed and are negative Physical Exam Vital Signs: Vital Signs: Last Vital Signs Temp 97.4 F 02/05/23 07:18 Pulse 86 02/05/23 07:18 Resp 18 02/05/23 07:18 BP 98/55 L 02/05/23 07:18 Pulse Ox 96 02/05/23 07:18 O2 Del Method Room Air 02/05/23 07:18 BMI result Body Mass Index 23.3 Gen: in no acute distress HEENT: sclera anicteric, moist mucus membranes Neck: supple Lungs: clear to auscultation bilaterally Heart: irregular, no murmurs Abd: soft, non-tender, non-distended Ext: no edema Skin: warm/well-perfused Neuro: alert and oriented x3, no focal findings Psych: appropriate affect Objective Data Active Medications Acetaminophen (Acetaminophen 325 Mg Tablet) 650 mg PO Q6H PRN PRN Reason: Pain, Mild (Pain Scale 1-3) Atorvastatin Calcium (Atorvastatin Calcium 80 Mg Tablet) 80 mg PO BEDTIME [facility] Last Admin: 02/04/23 20:51 Dose: 80 mg Documented By: AVIVA Clopidogrel Bisulfate (Clopidogrel Bisulfate 75 Mg Tablet) 75 mg PO DAILY [facility] Last Admin: 02/05/23 07:44 Dose: 75 mg Documented By: BRENNEN Docusate Sodium (Docusate Sodium 100 Mg Capsule) 100 mg PO DAILY PRN PRN Reason: Constipation Empagliflozin (Empagliflozin 25 Mg Tablet) 25 mg PO DAILY [facility] Last Admin: 02/05/23 07:44 Dose: 25 mg Documented By: BRENNEN Ferrous Sulfate (Ferrous Sulfate 324 Mg Tablet.Dr) 324 mg PO DAILY [facility] Last Admin: 02/05/23 07:44 Dose: 324 mg Documented By: BRENNEN Glipizide (Glipizide Xl 5 Mg Tab.Er.24) 5 mg PO BID [facility] Last Admin: 02/05/23 07:44 Dose: 5 mg Documented By: BRENNEN Glucose (Glucose Gel 15 Gm Gel..Gram.) 15 gm PO Q15M PRN; Protocol PRN Reason: per Hypoglycemia Standing Ord. Heparin Sodium (Porcine) (Heparin Sodium,Porcine 5,000 Unit/Ml Vial) 2,300 unit 40 unit/kg (2300 unit) IVPUSH PROTOCOL BOLUS PRN; Protocol PRN Reason: 40 unit/kg - Heparin Protocol Heparin Sodium (Porcine) (Heparin Sodium,Porcine 5,000 Unit/Ml Vial) 4,600 unit 80 unit/kg (4600 unit) IVPUSH PROTOCOL BOLUS PRN; Protocol PRN Reason: 80 unit/kg - Heparin Protocol Heparin Sodium/Sodium Chloride (Heparin Sodium,Porcine/1/2ns) 25,000 unit in 250 mls @ 0 mls/hr IVCONT .Q0M [facility]; Protocol Stop: 02/05/23 15:15 Last Titration: 02/05/23 05:07 Dose: 6 units/kg/hr, 3.47 mls/hr Documented By: AVIVA Co-signed By: MARCIN Dextrose ([id number]) 250 mls @ 750 mls/hr IV Q15M PRN; Protocol PRN Reason: per Hypoglycemia Standing Ord. Insulin Human Lispro (Insulin Lispro 100 Unit/Ml 3 Ml Vial) 0 unit SUBCUT QIDACHS [facility]; Protocol Last Admin: 02/05/23 08:00 Dose: Not Given Documented By: BRENNEN Non-Admin Reason: No Insulin Coverage Levothyroxine Sodium (Levothyroxine Sodium 75 Mcg Tablet) 75 mcg PO DAILY@0600 [facility] Last Admin: 02/05/23 04:39 Dose: 75 mcg Documented By: AVIVA Metoprolol Succinate (Metoprolol Succinate Er 50 Mg Tab.Er.24h) 50 mg PO DAILY [facility]; Protocol Last Admin: 02/05/23 07:44 Dose: 50 mg Documented By: BRENNEN Ondansetron HCl (Ondansetron Hcl 4 Mg/2 Ml Vial) 4 mg IVPUSH Q8H PRN PRN Reason: Nausea and Vomiting Sodium Chloride (0.9 % Sodium Chloride Flush 3 Ml Syringe) 3 ml IVFLUSH QSHIFT [facility] Last Admin: 02/05/23 07:44 Dose: Not Given Documented By: BRENNEN Non-Admin Reason: IV Running Labs 02/05/23 04:35 02/05/23 04:35 Labs: Laboratory Results - last 24 hr 02/04/23 02/04/23 02/04/23 11:02 15:45 16:01 MCV MCH MCHC RDW Plt Count MPV Absolute Nucleated RBC Nucleated RBC % (auto) aPTT Heparin Protocol 78.2 H Anion Gap Estim Creat Clear Calc Estimated GFR POC Glucose 312 H 152 H Random Glucose Calcium Magnesium Total Bilirubin Direct Bilirubin AST ALT Alkaline Phosphatase Total Protein Albumin 02/04/23 02/04/23 02/05/23 19:33 22:24 04:35 MCV 78.9 L MCH 24.1 L MCHC 30.6 L RDW 16.5 H Plt Count 159 L MPV 10.2 Absolute Nucleated RBC 0.000 Nucleated RBC % (auto) 0.0 aPTT Heparin Protocol 59.9 D Anion Gap Estim Creat Clear Calc Estimated GFR POC Glucose 194 H Random Glucose Calcium Magnesium Total Bilirubin Direct Bilirubin AST ALT Alkaline Phosphatase Total Protein Albumin 02/05/23 02/05/23 02/05/23 04:35 04:35 07:16 MCV MCH MCHC RDW Plt Count MPV Absolute Nucleated RBC Nucleated RBC % (auto) aPTT Heparin Protocol 59.1 Anion Gap 11 L Estim Creat Clear Calc 41.5 Estimated GFR > 60 POC Glucose 119 H Random Glucose 95 Calcium 8.1 L D Magnesium 1.9 Total Bilirubin 0.6 Direct Bilirubin 0.3 AST 131 H ALT 100 H Alkaline Phosphatase 171 H Total Protein 6.7 Albumin 3.1 L Assessment and Plan (1) Acute non-ST elevation myocardial infarction (NSTEMI): Status: Acute (2) New onset a-fib: Status: Acute Plan d#3 82yo F with CAD with nonstentable dz, HTN, HLD, DM2, hx brain aneursym s/p stenting, hypothyroidism presenting with chest pain/pressure x3d admitted for NSTEMI, new-onset AF/RVR # NSTEMI - Cardiology consulted, medical management with heparin gtt x 48h (done at 15:15 today), statin, metoprolol; on clopidogrel for intracranal stent # new-onset AF/RVR - increased metoprolol - on heparin gtt for AC at this point and will discuss with Cardiology + Neurology safety of apixaban in light of DAPT # transamniasemia - unclear cause, denies EtOH. check hep B/C serologies, US abd, GI consult. recheck LFTs in AM. # constipation - bowel regimen # ZHANE - mild, resolved, SCr now normal # CANDE - replete # DM2, A1c 11.4 - continue Jardiance, glipizide, radha-dose lispro; hold MTF # hypothyroidism - LT4 # VTE ppx: heparin # dispo: TBD In my clinical judgment, the patient requires continued inpatient hospitalization for the following reasons: heparinization for NSTEMI, rate control for AF/RVR Time Spent With Patient Time: Total time managing care of this patient today _50__ minutes. Quality Stroke Does the patient have a stroke diagnosis?: No VTE Prior VTE?: No VTE Risk Level:: Medical - moderate - high VTE Device Contraindication: Treatment Not Indicated VTE Drug Contraindication: N/A - Med Ordered
[2023-02-05] MEDS: polyethylene glycoL 3350 17 GM POWD.PACK PO (10:27)
[2023-02-05] MEDS: Sennosides/Docusate Sodium TABLET 2 TAB PO ×2 (10:27→20:00)
[2023-02-05 10:28] LABS: Gamma Glutamyl Transpeptidase 281 U/L (7-33)
--- NOTE | 2023-02-05 10:36 | P.CNGI_ITS ---
History of Present Illness Data of Consult Service Date: 02/05/23 Requesting physician: Andrew Arambula Primary Care Provider: Kandi King NP [facility] Reason for consult: Elevated LFTs 82 YF with CAD, HTN, HLD, [id number] diabetes type 2, hx of brain aneurysm, and hypothyroid?admitted to [facility] on 02/03/23 with?3 days of chest pain/pressure and SOB for suspected NSTEMI. Labs were significant for H&H of 9.2/29.9, sodium 133, BUN of 32, creatinine of 1.15, random glucose of 361, AST of 102, ALT of 96, alk-phos of 172, BNP of 1195, Initial troponin 534.7 with repeat of 695.6.? CXR showed no acute cardiopulmonary process, but did show nondisplaced fracture of the right 6 rib that could be acute or chronic. EKG demonstrated??AFib with RVR of 130 with no evidence of ST elevations, but did show ST depressions in I, V3-V6.? Pt was treated with metoprolol 5 mg IV and 25 mg p.o., and placed on a heparin drip. GI consulted for evaluation of elevated LFTs (no previous LFTs in [employer] or [employer]) Pt denies past history of hepatitis or jaundice. She recalls being informed by her PCP, Kadni King NP, regarding elevated LFTs in the past. She complains of intermittent abdominal pain related to diet. She denies recent change in her appetite or weight. She denies smoking or ETOH abuse. Pt denies known family hx of liver disease or GI malignancy. 02/05/23 ABD US SHOWED: Normal-appearing liver. Question small cyst in the body/neck of the pancreas. Review of Systems Review of Systems: Yes all other systems are reviewed and are negative Constitutional: Constitutional: Reports as per HPI and Reports no additional constitutional complaints Eyes: Eyes: Reports as per HPI and Denies no additional eye complaints ENT: Denies system reviewed and no additional complaints, except as documented and Reports as per HPI Cardiovascular: Cardiovascular: Reports as per HPI, Reports no additional cardiovascular complaints, Denies acrocyanosis, Denies cool extremities, Reports chest pain, Denies leg edema, Denies lightheadedness, Reports palpitations and Denies dyspnea Respiratory: Respiratory: Reports as per HPI, Denies no additional respiratory complaints and Denies dyspnea Gastrointestinal: Gastrointestinal: Reports as per HPI and Denies no additional gastrointestinal complaints Genitourinary: Genitourinary: Reports as per HPI Musculoskeletal: Musculoskeletal: Reports no additional musculoskeletal complaints and Reports as per HPI Integumentary/Breasts: Skin/Breast: Reports system reviewed and no additional complaints, except as docu Neurologic: Reports system reviewed and no additional complaints, except as documented and Reports as per HPI Psychiatric: Psychiatric: Reports no additional psychiatric complaints and Reports as per HPI Endocrine: Endocrine: Reports no additional endocrine complaints, Reports as per HPI and Reports palpitations Hematologic/Lymphatic: Hematologic/Lymphatic: Reports no additional hematologic/lymphatic complaints and Reports as per HPI Allergic/Immunologic: Allergic/Immunologic: Reports no additional allergic/immunologic complaints and Reports as per HPI [facility] Past Medical History Medical History Brain aneurysm Coronary artery disease Essential hypertension Subarachnoid hemorrhage Type 2 diabetes mellitus Social History Social History Household Members: None Housing: House Do you presently have visiting nurse or other home services: Yes (home health aide) Patient Tobacco Use Status: Never used Tobacco e-Cigarette/Vaping Use: Never Used Second Hand Smoke Exposure: No service: No Current occupational status: retired Meds Allergies Allergy/AdvReac Type Severity Reaction Status Date / Time No Known Allergies Allergy Unverified 06/12/20 19:41 [No Known Allergies*] Active Medications: Current Medications Acetaminophen (Acetaminophen 325 Mg Tablet) 650 mg PO Q6H PRN PRN Reason: Pain, Mild (Pain Scale 1-3) Atorvastatin Calcium (Atorvastatin Calcium 80 Mg Tablet) 80 mg PO BEDTIME [facility] Last Admin: 02/04/23 20:51 Dose: 80 mg Clopidogrel Bisulfate (Clopidogrel Bisulfate 75 Mg Tablet) 75 mg PO DAILY [facility] Last Admin: 02/05/23 07:44 Dose: 75 mg Docusate Sodium (Docusate Sodium 100 Mg Capsule) 100 mg PO DAILY PRN PRN Reason: Constipation Empagliflozin (Empagliflozin 25 Mg Tablet) 25 mg PO DAILY [facility] Last Admin: 02/05/23 07:44 Dose: 25 mg Ferrous Sulfate (Ferrous Sulfate 324 Mg Tablet.) 324 mg PO DAILY [facility] Last Admin: 02/05/23 07:44 Dose: 324 mg Glipizide (Glipizide Xl 5 Mg Tab.Er.24) 5 mg PO BID [facility] Last Admin: 02/05/23 07:44 Dose: 5 mg Glucose (Glucose Gel 15 Gm Gel..Gram.) 15 gm PO Q15M PRN; Protocol PRN Reason: per Hypoglycemia Standing Ord. Heparin Sodium (Porcine) (Heparin Sodium,Porcine 5,000 Unit/Ml Vial) 2,300 unit 40 unit/kg (2300 unit) IVPUSH PROTOCOL BOLUS PRN; Protocol PRN Reason: 40 unit/kg - Heparin Protocol Heparin Sodium (Porcine) (Heparin Sodium,Porcine 5,000 Unit/Ml Vial) 4,600 unit 80 unit/kg (4600 unit) IVPUSH PROTOCOL BOLUS PRN; Protocol PRN Reason: 80 unit/kg - Heparin Protocol Heparin Sodium/Sodium Chloride (Heparin Sodium,Porcine/1/2ns) 25,000 unit in 250 mls @ 0 mls/hr IVCONT .Q0M [facility]; Protocol Stop: 02/05/23 15:15 Last Titration: 02/05/23 05:07 Dose: 6 units/kg/hr, 3.47 mls/hr Dextrose (D10) 250 mls @ 750 mls/hr IV Q15M PRN; Protocol PRN Reason: per Hypoglycemia Standing Ord. Insulin Human Lispro (Insulin Lispro 100 Unit/Ml 3 Ml Vial) 0 unit SUBCUT Q IDACHS [facility]; Protocol Last Admin: 02/05/23 08:00 Dose: Not Given Levothyroxine Sodium (Levothyroxine Sodium 75 Mcg Tablet) 75 mcg PO DAILY@0600 [facility] Last Admin: 02/05/23 04:39 Dose: 75 mcg Metoprolol Succinate (Metoprolol Succinate Er 50 Mg Tab.Er.24h) 50 mg PO DAILY [facility]; Protocol Last Admin: 02/05/23 07:44 Dose: 50 mg Ondansetron HCl (Ondansetron Hcl 4 Mg/2 Ml Vial) 4 mg IVPUSH Q8H PRN PRN Reason: Nausea and Vomiting Polyethylene Glycol (Polyethylene Glycol 3350 17 Gm Powd.Pack) 17 gm PO DAILY [facility] Last Admin: 02/05/23 10:27 Dose: 17 gm Senna/Docusate Sodium (Sennosides/Docusate Sodium Tablet) 2 tab PO BID [facility] Last Admin: 02/05/23 10:27 Dose: 2 tab Sodium Chloride (0.9 % Sodium Chloride Flush 3 Ml Syringe) 3 ml IVFLUSH QSHIFT [facility] Last Admin: 02/05/23 07:44 Dose: Not Given Home Medications Medication Instructions Recorded Confirmed Last Taken Type clopidogrel 75 mg tablet 75 mg PO DAILY 02/03/23 02/03/23 02/03/23 History empagliflozin 25 mg tablet 25 mg PO DAILY 02/03/23 02/03/23 02/03/23 History (Jardiance) glipizide 2.5 mg tablet, extended 5 mg PO BID 02/03/23 02/03/23 02/03/23 History release 24 hr levothyroxine 75 mcg tablet 75 mcg PO DAILY 02/03/23 02/03/23 02/03/23 History metformin 1,000 mg tablet 1,000 mg PO BID 02/03/23 02/03/23 02/03/23 History Physical Exam Vital Signs: Vital Signs: Last Vital Signs Temp 97.4 F 02/05/23 07:18 Pulse 86 02/05/23 07:18 Resp 18 02/05/23 07:18 BP 98/55 L 02/05/23 07:18 Pulse Ox 96 02/05/23 07:18 O2 Del Method Room Air 02/05/23 07:18 BMI result Body Mass Index 23.3 Const: General: no acute distress Nutritional Appearance: average body habitus Orientation/consciousness: patient oriented x3 HEENT: Head: Yes normal to inspection Ears: hearing grossly normal bilaterally Eyes: Sclerae: sclerae normal Pupils: Equal, round and reactive pupils present Neck: Neck: Yes normal visual inspection Chest: Chest palpation & inspection: normal inspection of the chest Resp: Effort & Inspection: normal respiratory effort Auscultation: clear to auscultation bilaterally Cardio: Palpation: normal PMI Rhythm: other (Irregularly irregular) Heart sounds: S1 normal heart sound present, S2 normal heart sound present and no murmurs GI: Palpation (GI): Soft to palpation, nontender and No hepatosplenomegaly present Auscultation: normal bowel sounds Rectal Exam - Female: deferred Skin: General skin exam: no rashes or lesions noted Neuro: General: patient oriented x3, gait normal and moves all extremities Cranial nerves: Yes Equal, round and reactive pupils present Psych: Appearance: grossly normal Mental Status: mental status grossly normal Results Labs 02/05/23 04:35 02/05/23 04:35 Labs: Short CBC 02/05/23 Range/Units 04:35 WBC 3.5 L (4.8-10.8) X10*3/uL Hgb 8.8 L (12.0-16.0) g/dl Hct 28.8 L (37.0-47.0) % Plt Count 159 L (160-400) X10*3/uL BMP 02/05/23 04:35 Sodium 137 Potassium 4.2 Chloride 109 H Carbon Dioxide 21 L BUN 23 H Creatinine 0.84 Calcium 8.1 L D Liver Function 02/05/23 Range/Units 04:35 Total Bilirubin 0.6 (0.0-1.0) mg/dL Direct Bilirubin 0.3 (0.0-0.5) mg/dL GGT 281 H (7-33) U/L AST 131 H (5-31) U/L ALT 100 H (0-31) U/L Alkaline Phosphatase 171 H (39-117) U/L Albumin 3.1 L (3.5-5.0) g/dL Assessment and Plan (1) Elevated LFTs: Status: Acute Plan 82 YF with CAD, HTN, HLD, [id number] diabetes type 2, hx of brain aneurysm, and hypothyroid?admitted to [facility] on 02/03/23 with?3 days of chest pain/pressure and SOB for suspected NSTEMI. Labs were significant for H&H of 9.2/29.9, sodium 133, BUN of 32, creatinine of 1.15, random glucose of 361, AST of 102, ALT of 96, alk-phos of 172, BNP of 1195, Initial troponin 534.7 with repeat of 695.6.? GI consulted for evaluation of elevated LFTs (no previous LFTs in [employer] or [employer]) Pt denies past history of hepatitis or jaundice. She recalls being informed by her PCP, Kandi King NP, regarding elevated LFTs in the past. She denies smoking or ETOH abuse. 02/05/23 ABD US SHOWED: Normal-appearing liver. Question small cyst in the body/neck of the pancreas. Elevated LFTs can be due to chronic viral hepatitis, autoimmune hepatitis, PBC, hemorchromatosis, celiac or thyroid disease or related to medications (atorvastatin or glipizide) RECOMMENDATIONS: 1. Agree with checking hepatitis serologies and an abdominal US. 2. If these are normal then additional sims with iron studies, ARLINE, AMA, ASMA, protein electropheresis, celiac serologies to rule out metabolic causes of liver disease 3. Obtain copies of past LFTs from PCP's office. 4. Since atorvastatin has been held, I anticipate LFTs to improve over the next week if elevated LFTs are due to atorvastatin related hepatotoxicity. FROM UPTODATE: Hepatic effects Statins are associated with increased serum transaminases and hepatotoxicity. Asymptomatic transient or persistent increases both <3 or >3 times the ULN in serum transaminases may occur with all statins; the increase in ALT is typically greater than the increase in AST . Additionally, there are postmarketing reports of fatal and nonfatal hepatic failure, consisting of a cholestatic/mixed pattern (more common with atorvastatin) or hepatocellular pattern. Drug-induced autoimmune hepatitis has also been documented Upon dose reduction or discontinuation, transaminase levels return to or near pretreatment levels; although, mild elevations resolve with continued use in some cases. Chronic liver injury (defined as liver biochemical or histological abnormalities that persisted for 6 months or more after onset) has been reported Mechanism: Unclear; inhibition of the PFK072 system, leading to increased plasma concentrations of statins has been postulated, as well as an immune-mediated response Changes in the lipid components of the hepatocyte membrane may lead to increased permeability and leakage of liver enzymes . Onset: Varied; most cases occur within the first 3 months of initiation or dose escalation. Duration of atorvastatin prior to development of hepatotoxicity has been reported from ?1 month to 10 years. Risk factors: ? Administration of high oral daily dose of lipophilic drugs that undergo extensive hepatic metabolism, such as atorvastatin, may increase the risk of developing drug-induced liver injury ? Concurrent medications with statin drug-drug interactions or hepatotoxic properties ? Hepatotoxicity is more commonly associated with atorvastatin than pravastatin, rosuvastatin, and simvastatin Fluvastatin is associated with the greatest risk of developing hepatotoxicity ? Cross-reactivity between different statins and the susceptibility to hepatotoxicity is unknown, as data have shown conflicting results ? Chronic hepatitis B and alcohol consumption are independent risk factors for hepatic aminotransferase elevation associated with statins in patients 80 years of age or older Time Spent With Patient Time: Total time managing care of this patient today ____ minutes. Procedures Date of Service Date of Service: 02/07/23
--- NOTE | 2023-02-05 10:40 | P.PNCA_ITS ---
Subjective Subjective Date of Service: 02/05/23 Interval history: She states that she feels okay. No new complaints. Chest pain seems improved. Review of Systems Review of Systems Yes all other systems are reviewed and are negative Constitutional: Reports as per HPI and Reports no additional constitutional complaints Eyes: Reports as per HPI and Denies no additional eye complaints Denies system reviewed and no additional complaints, except as documented and Reports as per HPI Cardiovascular: Reports as per HPI, Reports no additional cardiovascular complaints, Denies acrocyanosis, Denies cool extremities, Denies chest pain, Denies leg edema, Denies lightheadedness, Denies palpitations and Denies dyspnea Respiratory: Reports as per HPI, Denies no additional respiratory complaints and Denies dyspnea Gastrointestinal: Reports as per HPI and Denies no additional gastrointestinal complaints Genitourinary: Reports as per HPI Musculoskeletal: Reports no additional musculoskeletal complaints and Reports as per HPI Skin/Breast: Reports system reviewed and no additional complaints, except as docu Reports system reviewed and no additional complaints, except as documented and Reports as per HPI Psychiatric: Reports no additional psychiatric complaints and Reports as per HPI Endocrine: Reports no additional endocrine complaints, Reports as per HPI and Denies palpitations Hematologic/Lymphatic: Reports no additional hematologic/lymphatic complaints an d Reports as per HPI Allergic/Immunologic: Reports no additional allergic/immunologic complaints and Reports as per HPI Physical Exam Vital Signs: Last Vital Signs Temp 97.4 F 02/05/23 07:18 Pulse 86 02/05/23 07:18 Resp 18 02/05/23 07:18 BP 98/55 L 02/05/23 07:18 Pulse Ox 96 02/05/23 07:18 O2 Del Method Room Air 02/05/23 07:18 BMI result Body Mass Index 23.3 Const General: comfortable and no acute distress Orientation/consciousness: patient oriented x3 HEENT Other: Unremarkable Head: Yes normal to inspection Neck Neck: Yes normal visual inspection Chest Chest palpation & inspection: normal inspection of the chest Resp Auscultation: clear to auscultation bilaterally Cardio Palpation: normal PMI Heart sounds: S1 normal heart sound present, S2 normal heart sound present, no gallops, no murmurs and no rubs GI Palpation (GI): Soft to palpation Back/Spine/Pelvis Other: unremarkable Skin General skin exam: no rashes or lesions noted Neuro General: patient oriented x3 Extrem General: Yes normal to inspection Psych Mental Status: mental status grossly normal Objective Labs and Meds 02/05/23 04:35 02/05/23 04:35 Lab results: Laboratory Results - last 24 hr 02/04/23 02/04/23 02/04/23 11:02 15:45 16:01 WBC RBC Hgb Hct MCV MCH MCHC RDW Plt Count MPV Absolute Nucleated RBC Nucleated RBC % (auto) aPTT Heparin Protocol 78.2 H Sodium Potassium Chloride Carbon Dioxide Anion Gap BUN Creatinine Estim Creat Clear Calc Estimated GFR POC Glucose 312 H 152 H Random Glucose Calcium Magnesium Total Bilirubin Direct Bilirubin GGT AST ALT Alkaline Phosphatase Total Protein Albumin 02/04/23 02/04/23 02/05/23 19:33 22:24 04:35 WBC 3.5 L RBC 3.65 L Hgb 8.8 L Hct 28.8 L MCV 78.9 L MCH 24.1 L MCHC 30.6 L RDW 16.5 H Plt Count 159 L MPV 10.2 Absolute Nucleated RBC 0.000 Nucleated RBC % (auto) 0.0 aPTT Heparin Protocol 59.9 D Sodium Potassium Chloride Carbon Dioxide Anion Gap BUN Creatinine Estim Creat Clear Calc Estimated GFR POC Glucose 194 H Random Glucose Calcium Magnesium Total Bilirubin Direct Bilirubin GGT AST ALT Alkaline Phosphatase Total Protein Albumin 02/05/23 02/05/23 02/05/23 04:35 04:35 07:16 WBC RBC Hgb Hct MCV MCH MCHC RDW Plt Count MPV Absolute Nucleated RBC Nucleated RBC % (auto) aPTT Heparin Protocol 59.1 Sodium 137 Potassium 4.2 Chloride 109 H Carbon Dioxide 21 L Anion Gap 11 L BUN 23 H Creatinine 0.84 Estim Creat Clear Calc 41.5 Estimated GFR > 60 POC Glucose 119 H Random Glucose 95 Calcium 8.1 L D Magnesium 1.9 Total Bilirubin 0.6 Direct Bilirubin 0.3 GGT 281 H AST 131 H ALT 100 H Alkaline Phosphatase 171 H Total Protein 6.7 Albumin 3.1 L Imaging Radiologist's impression: Impressions Head CTA 02/04/23 12:55 IMPRESSION: 1. No acute intracranial abnormality. 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 2. 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 Anterior and posterior circulation is patent without significant stenosis or occlusion. No intracranial arterial stent identified. Progress Note: A&P Assessment and plan (1) Acute non-ST elevation myocardial infarction (NSTEMI): Status: Acute Assessment and Plan: Cardiac catheterization reviewed from 2019. Left main without any significant disease. LAD had mid 60% stenosis. In the circumflex, mid section with 70% stenosis and distal 80% stenosis. First marginal had 70% stenosis. 100% proximal RCA stenosis collateralized by [id number] system with diffuse PDA disease and poor runoff. Overall, medical therapy was recommended. Current NSTEMI could be from atrial fibrillation with rapid rate and secondary but could also be a primary event. Difficult to say. Discussed with patient regarding medical therapy versus catheterization but she is leaning more towards conservative care which is very reasonable. We can switch the IV heparin drip to Eliquis. Beta-blockers. Probably hold off on statins as LFTs are quite high. Hold losartan due to low blood pressure. (2) New onset a-fib: Status: Acute Assessment and Plan: Increase beta-oriana dosing as rates are still fast. Eliquis as above. Plan Discussed with Dr. Arambula. Time Spent With Patient Time: Total time managing care of this patient today ____ minutes. Progress Note: Quality Stroke Does the patient have a stroke diagnosis?: No Procedures Date of Service Date of Service: 02/05/23
--- NOTE | 2023-02-05 11:11 | PC.NURSE ---
incident occurred ~ 0950. this nurse heard the bed alarm sound and went to investigate. upon arrival pt was sitting at edge of bed but was wobbly and leaned backwards in bed and bumped head on bedrail. no loss of consciousness, denies pain, alert and oriented. pt is on heparin MD hilary notified, CT stat ordered.
[2023-02-05 12:29] LABS: Glucose, Whole Blood 314 mg/dL (60-115)
[2023-02-05] MEDS: Insulin Lispro 100 UNIT/ML 3 ML VIAL SUBCUT ×3 (12:35→19:59)
--- NOTE | 2023-02-05 13:57 | P.CNNE_ITS ---
History of Present Illness Data of Consult Service Date: 02/05/23 Primary Care Provider: Kandi King NP HPI Reason for consult: Cerebral aneurysm 82 yo woman with h/o A com aneurysm coiling is diagnosed with a fibb and this consultation is requested about safety of cerebral aneurysm anticoagulation. No recent neurological symptoms or headaches. Review of Systems Review of Systems: No recent cold or flu like symptoms PMFSH Past Medical History Medical History Brain aneurysm Coronary artery disease Essential hypertension Subarachnoid hemorrhage Type 2 diabetes mellitus Social History Social History Household Members: None Housing: House Do you presently have visiting nurse or other home services: Yes (home health aide) Patient Tobacco Use Status: Never used Tobacco e-Cigarette/Vaping Use: Never Used Second Hand Smoke Exposure: No service: No Current occupational status: retired [employer] Allergies Allergy/AdvReac Type Severity Reaction Status Date / Time No Known Allergies Allergy Unverified 06/12/20 19:41 [No Known Allergies*] Active Medications: Current Medications Acetaminophen (Acetaminophen 325 Mg Tablet) 650 mg PO Q6H PRN PRN Reason: Pain, Mild (Pain Scale 1-3) Apixaban (Apixaban 5 Mg Tablet) 5 mg PO BID [facility] Clopidogrel Bisulfate (Clopidogrel Bisulfate 75 Mg Tablet) 75 mg PO DAILY [facility] Last Admin: 02/05/23 07:44 Dose: 75 mg Docusate Sodium (Docusate Sodium 100 Mg Capsule) 100 mg PO DAILY PRN PRN Reason: Constipation Empagliflozin (Empagliflozin 25 Mg Tablet) 25 mg PO DAILY [facility] Last Admin: 02/05/23 07:44 Dose: 25 mg Ferrous Sulfate (Ferrous Sulfate 324 Mg Tablet.Dr) 324 mg PO DAILY [facility] Last Admin: 02/05/23 07:44 Dose: 324 mg Glipizide (Glipizide Xl 5 Mg Tab.Er.24) 5 mg PO BID [facility] Last Admin: 02/05/23 07:44 Dose: 5 mg Glucose (Glucose Gel 15 Gm Gel..Gram.) 15 gm PO Q15M PRN; Protocol PRN Reason: per Hypoglycemia Standing Ord. Heparin Sodium (Porcine) (Heparin Sodium,Porcine 5,000 Unit/Ml Vial) 2,300 unit 40 unit/kg (2300 unit) IVPUSH PROTOCOL BOLUS PRN; Protocol PRN Reason: 40 unit/kg - Heparin Protocol Heparin Sodium (Porcine) (Heparin Sodium,Porcine 5,000 Unit/Ml Vial) 4,600 unit 80 unit/kg (4600 unit) IVPUSH PROTOCOL BOLUS PRN; Protocol PRN Reason: 80 unit/kg - Heparin Protocol Heparin Sodium/Sodium Chloride (Heparin Sodium,Porcine/1/2ns) 25,000 unit in 250 mls @ 0 mls/hr IVCONT .Q0M [facility]; Protocol Stop: 02/05/23 15:15 Last Titration: 02/05/23 05:07 Dose: 6 units/kg/hr, 3.47 mls/hr Dextrose (D10) 250 mls @ 750 mls/hr IV Q15M PRN; Protocol PRN Reason: per Hypoglycemia Standing Ord. Insulin Human Lispro (Insulin Lispro 100 Unit/Ml 3 Ml Vial) 0 unit SUBCUT QIDACHS [facility]; Protocol Last Admin: 02/05/23 12:35 Dose: 8 unit Levothyroxine Sodium (Levothyroxine Sodium 75 Mcg Tablet) 75 mcg PO DAILY@0600 [facility] Last Admin: 02/05/23 04:39 Dose: 75 mcg Metoprolol Succinate (Metoprolol Succinate Er 50 Mg Tab.Er.24h) 50 mg PO BID [facility]; Protocol Ondansetron HCl (Ondansetron Hcl 4 Mg/2 Ml Vial) 4 mg IVPUSH Q8H PRN PRN Reason: Nausea and Vomiting Polyethylene Glycol (Polyethylene Glycol 3350 17 Gm Powd.Pack) 17 gm PO DAILY [facility] Last Admin: 02/05/23 10:27 Dose: 17 gm Senna/Docusate Sodium (Sennosides/Docusate Sodium Tablet) 2 tab PO BID [facility] Last Admin: 02/05/23 10:27 Dose: 2 tab Sodium Chloride (0.9 % Sodium Chloride Flush 3 Ml Syringe) [facility] Last Admin: 02/05/23 07:44 Dose: Not Given Home Medications Medication Instructions Recorded Confirmed Last Taken Type atorvastatin 80 mg tablet 80 mg PO BEDTIME 02/03/23 02/03/23 02/02/23 History clopidogrel 75 mg tablet 75 mg PO DAILY 02/03/23 02/03/23 02/03/23 History empagliflozin 25 mg tablet 25 mg PO DAILY 02/03/23 02/03/23 02/03/23 History (Jardiance) glipizide 2.5 mg tablet, extended 5 mg PO BID 02/03/23 02/03/23 02/03/23 History release 24 hr levothyroxine 75 mcg tablet 75 mcg PO DAILY 02/03/23 02/03/23 02/03/23 History losartan 50 mg tablet 100 mg PO DAILY 02/03/23 02/03/23 02/03/23 History metformin 1,000 mg tablet 1,000 mg PO BID 02/03/23 02/03/23 02/03/23 History metoprolol succinate 25 mg 25 mg PO DAILY 02/03/23 02/03/23 02/03/23 History tablet,extended release 24 hr Physical Exam Vital Signs: Vital Signs: Last Vital Signs Temp 98.1 F 02/05/23 11:30 Pulse 96 02/05/23 11:30 Resp 98 H 02/05/23 11:30 BP 100/59 L 02/05/23 11:30 Pulse Ox 99 02/05/23 11:30 O2 Del Method Room Air 02/05/23 11:30 BMI result Body Mass Index 23.3 Neuro: Other: Alert and awake with normal sp speech, fluency, comprehension and affect. She knows where she is and where she lived. Elementary neuro exam is non focal Results Labs 02/05/23 04:35 02/05/23 04:35 Labs: Short CBC 02/05/23 Range/Units 04:35 WBC 3.5 L (4.8-10.8) X10*3/uL Hgb 8.8 L (12.0-16.0) g/dl Hct 28.8 L (37.0-47.0) % Plt Count 159 L (160-400) X10*3/uL BMP 02/05/23 04:35 Sodium 137 Potassium 4.2 Chloride 109 H Carbon Dioxide 21 L BUN 23 H Creatinine 0.84 Calcium 8.1 L D Liver Function 02/05/23 Range/Units 04:35 Total Bilirubin 0.6 (0.0-1.0) mg/dL Direct Bilirubin 0.3 (0.0-0.5) mg/dL GGT 281 H (7-33) U/L AST 131 H (5-31) U/L ALT 100 H (0-31) U/L Alkaline Phosphatase 171 H (39-117) U/L Albumin 3.1 L (3.5-5.0) g/dL CT and CTA brain revealed A com area coiling artifact, mod atrophy, and mild to mod MVD Assessment and Plan (1) Cerebral aneurysm: Status: Acute Risk of stroke from a fibb outwheighs the risk of bleeding due to coild aneurysm. Continue with plan of anticoagulation if indicated. Time Spent With Patient Time: Total time managing care of this patient today ____ minutes. Procedures Date of Service Date of Service: 02/05/23
[2023-02-05 16:04] LABS: Glucose, Whole Blood 164 mg/dL (60-115)
[2023-02-05 16:59] LABS: OBS Int Ctl Valid YES; OBS1 NEGATIVE (NEGATIVE)
[2023-02-05] MEDS: 0.9 % Sodium Chloride Flush 3 ML SYRINGE IVFLUSH ×2 (17:01→22:56)
--- NOTE | 2023-02-05 17:34 | PC.NURSE ---
pt A&O x 4, a little unsteady, 1 assist with walker, educated on bed alarm and chair alarm safety multiple times and pt states the sound scares me, I don't want it . camera placed in room, red socks, red bracelet on.
[2023-02-05 19:46] LABS: Glucose, Whole Blood 258 mg/dL (60-115)
[2023-02-05] MEDS: Apixaban 5 MG TABLET PO (20:31)
[2023-02-05 23:04] LABS: Glucose, Whole Blood 64 mg/dL (60-115)
[2023-02-05] MEDS: Glucose Gel 15 GM GEL..GRAM. PO (23:05)
[2023-02-06 00:38] LABS: Glucose, Whole Blood 262 mg/dL (60-115)
[2023-02-06 03:09] VITALS: BP 160/88; PULSE 82; RESP 20; TEMP 36.2; O2SAT 100
--- NOTE | 2023-02-06 04:26 | PC.NURSE ---
2300 Pt woke up c/o feeling jittery and weak. Checked blood glucose for 64. Pt given the glucose gel and apple juice. notified. POC rechecked at midnight was 262.
[2023-02-06] MEDS: Levothyroxine Sodium 75 MCG TABLET PO (05:46)
[2023-02-06 07:11] LABS: Glucose, Whole Blood 169 mg/dL (60-115)
[2023-02-06] MEDS: Insulin Lispro 100 UNIT/ML 3 ML VIAL SUBCUT ×4 (07:44→21:03)
[2023-02-06] MEDS: Metoprolol Succinate ER 50 MG TAB.ER.24H PO ×2 (07:45→21:03)
[2023-02-06] MEDS: Ferrous Sulfate 324 MG TABLET.DR PO (07:45)
[2023-02-06] MEDS: glipiZIDE XL 5 MG TAB.ER.24 PO ×2 (07:46→21:03)
[2023-02-06] MEDS: Empagliflozin 25 MG TABLET PO (07:46)
[2023-02-06] MEDS: Apixaban 5 MG TABLET PO ×2 (07:46→21:03)
[2023-02-06] MEDS: Clopidogrel Bisulfate 75 MG TABLET PO (07:46)
[2023-02-06] MEDS: 0.9 % Sodium Chloride Flush 3 ML SYRINGE IVFLUSH ×2 (07:51→16:56)
[2023-02-06 08:00] VITALS: BP 136/61; PULSE 94; RESP 20; TEMP 36.8; O2SAT 99
[2023-02-06 08:14] LABS: Hematocrit 29.1 % (37.0-47.0); Hemoglobin 8.9 g/dl (12.0-16.0); Mean Corpuscular HGB Conc 30.6 g/dl (31.0-35.0); Mean Corpuscular Hemoglobin 24.3 pg (27.0-33.0); Mean Corpuscular Volume 79.5 fL (80.0-98.0); Mean Platelet Volume 10.6 fL (9.4-12.3); Platelet Count 159 X10*3/uL (160-400); Red Blood Count 3.66 X10*6/uL (4.20-5.50); Red Cell Distribution Width 16.6 % (11.0-16.0); White Blood Count 3.1 X10*3/uL (4.8-10.8)
[2023-02-06 08:28] LABS: Alanine Aminotransferase 107 U/L (0-31); Anion Gap 11 (12-20); Aspartate Amino Transferase 119 U/L (5-31); Bilirubin Total 0.6 mg/dL (0.0-1.0); Blood Urea Nitrogen 18 mg/dL (9-16); Calcium 8.8 mg/dL (8.4-10.2); Carbon Dioxide 22 mmol/L (22-29); Chloride 110 mmol/L (96-108); Creatinine Clr Calc Pharmacy 41.5; Estimated Glomerular Filt Rate > 60; Glucose Random 163 mg/dL (60-115); Potassium 4.4 mmol/L (3.3-5.1); Sodium 139 mmol/L (135-145); Total Protein 7.1 g/dL (6.5-8.0)
[2023-02-06 08:29] LABS: Albumin Level 3.2 g/dL (3.5-5.0); Alkaline Phosphatase 179 U/L (39-117)
[2023-02-06 08:32] LABS: PTT Heparin Drip 33.8 SEC (53-77.9)
--- NOTE | 2023-02-06 09:33 | P.PNIM_ITS ---
Subjective Subjective Date of Service: 02/06/23 Interval History: no chest pain abd pain resolved lightheadedness resolved Review of Systems Review of Systems: Yes all other systems are reviewed and are negative Physical Exam Vital Signs: Vital Signs: Last Vital Signs Temp 98.2 F 02/06/23 08:00 Pulse 94 02/06/23 08:00 Resp 20 02/06/23 08:00 BP 136/61 02/06/23 08:00 Pulse Ox 99 02/06/23 08:00 O2 Del Method Room Air 02/06/23 08:00 BMI result Body Mass Index 23.3 Gen: in no acute distress HEENT: sclera anicteric, moist mucus membranes Neck: supple Lungs: clear to auscultation bilaterally Heart: irregular, no murmurs Abd: soft, non-tender, non-distended Ext: no edema Skin: warm/well-perfused Neuro: alert and oriented x3, no focal findings Psych: appropriate affect Objective Data Active Medications Acetaminophen (Acetaminophen 325 Mg Tablet) 650 mg PO Q6H PRN PRN Reason: Pain, Mild (Pain Scale 1-3) Apixaban (Apixaban 5 Mg Tablet) 5 mg PO BID [facility] Last Admin: 02/06/23 07:46 Dose: 5 mg Documented By: BRENNEN Clopidogrel Bisulfate (Clopidogrel Bisulfate 75 Mg Tablet) 75 mg PO DAILY [facility] Last Admin: 02/06/23 07:46 Dose: 75 mg Documented By: BRENNEN Docusate Sodium (Docusate Sodium 100 Mg Capsule) 100 mg PO DAILY PRN PRN Reason: Constipation Empagliflozin (Empagliflozin 25 Mg Tablet) 25 mg PO DAILY [facility] Last Admin: 02/06/23 07:46 Dose: 25 mg Documented By: BRENNEN Ferrous Sulfate (Ferrous Sulfate 324 Mg Tablet.Dr) 324 mg PO DAILY [facility] Last Admin: 02/06/23 07:45 Dose: 324 mg Documented By: BRENNEN Glipizide (Glipizide Xl 5 Mg Tab.Er.24) 5 mg PO BID [facility] Last Admin: 02/06/23 07:46 Dose: 5 mg Documented By: BRENNEN Glucose (Glucose Gel 15 Gm Gel..Gram.) 15 gm PO Q15M PRN; Protocol PRN Reason: per Hypoglycemia Standing Ord. Last Admin: 02/05/23 23:05 Dose: 15 gm Documented By: KARELY Dextrose (D10) 250 mls @ 750 mls/hr IV Q15M PRN; Protocol PRN Reason: per Hypoglycemia Standing Ord. Insulin Human Lispro (Insulin Lispro 100 Unit/Ml 3 Ml Vial) 0 unit SUBCUT QIDACHS [facility]; Protocol Last Admin: 02/06/23 07:44 Dose: 2 unit Documented By: BRENNEN Levothyroxine Sodium (Levothyroxine Sodium 75 Mcg Tablet) 75 mcg PO DAILY@0600 [facility] Last Admin: 02/06/23 05:46 Dose: 75 mcg Documented By: KARELY Metoprolol Succinate (Metoprolol Succinate Er 50 Mg Tab.Er.24h) 50 mg PO BID [facility]; Protocol Last Admin: 02/06/23 07:45 Dose: 50 mg Documented By: BRENNEN Ondansetron HCl (Ondansetron Hcl 4 Mg/2 Ml Vial) 4 mg IVPUSH Q8H PRN PRN Reason: Nausea and Vomiting Polyethylene Glycol (Polyethylene Glycol 3350 17 Gm Powd.Pack) 17 gm PO DAILY [facility] Last Admin: 02/06/23 07:51 Dose: Not Given Documented By: BRENNEN Non-Admin Reason: Patient Refused Senna/Docusate Sodium (Sennosides/Docusate Sodium Tablet) 2 tab PO BID [facility] Last Admin: 02/06/23 07:51 Dose: Not Given Documented By: BRENNEN Non-Admin Reason: Patient Refused Sodium Chloride (0.9 % Sodium Chloride Flush 3 Ml Syringe) 3 ml IVFLUSH QSHIFT [facility] Last Admin: 02/06/23 07:51 Dose: 3 ml Documented By: BRENNEN Labs 02/06/23 07:43 02/06/23 07:44 Labs: Laboratory Results - last 24 hr 02/05/23 02/05/23 02/05/23 04:35 11:28 15:57 MCV MCH MCHC RDW Plt Count MPV Absolute Nucleated RBC Nucleated RBC % (auto) aPTT Heparin Protocol Anion Gap Estim Creat Clear Calc Estimated GFR POC Glucose 314 H 164 H Random Glucose Calcium Total Bilirubin GGT 281 H AST ALT Alkaline Phosphatase Total Creatine Kinase Total Protein Albumin Stool Occult Blood 02/05/23 02/05/23 02/05/23 16:35 19:40 23:00 MCV MCH MCHC RDW Plt Count MPV Absolute Nucleated RBC Nucleated RBC % (auto) aPTT Heparin Protocol Anion Gap Estim Creat Clear Calc Estimated GFR POC Glucose 258 H 64 Random Glucose Calcium Total Bilirubin GGT AST ALT Alkaline Phosphatase Total Creatine Kinase Total Protein Albumin Stool Occult Blood NEGATIVE 02/06/23 02/06/23 02/06/23 00:35 07:01 07:43 MCV 79.5 L MCH 24.3 L MCHC 30.6 L RDW 16.6 H Plt Count 159 L MPV 10.6 Absolute Nucleated RBC 0.000 Nucleated RBC % (auto) 0.0 aPTT Heparin Protocol Anion Gap Estim Creat Clear Calc Estimated GFR POC Glucose 262 H 169 H Random Glucose Calcium Total Bilirubin GGT AST ALT Alkaline Phosphatase Total Creatine Kinase Total Protein Albumin Stool Occult Blood 02/06/23 02/06/23 02/06/23 07:43 07:43 07:44 MCV MCH MCHC RDW Plt Count MPV Absolute Nucleated RBC Nucleated RBC % (auto) aPTT Heparin Protocol 33.8 L D Anion Gap 11 L Estim Creat Clear Calc 41.5 Estimated GFR > 60 POC Glucose Random Glucose 163 H Calcium 8.8 D Total Bilirubin 0.6 GGT AST 119 H ALT 107 H Alkaline Phosphatase 179 H Total Creatine Kinase 73 Total Protein 7.1 Albumin 3.2 L Stool Occult Blood Assessment and Plan (1) Acute non-ST elevation myocardial infarction (NSTEMI): Status: Acute (2) New onset a-fib: Status: Acute Plan d#4 82yo F with CAD with nonstentable dz, HTN, HLD, DM2, hx brain aneursym s/p stenting, hypothyroidism presenting with chest pain/pressure x3d admitted for NSTEMI, new-onset AF/RVR # NSTEMI - Cardiology following, completed 48h of heparin, to discuss medical management vs atttempt at repeat catheterization - statin held due to elevated LFTs - continue metoprolol - continue clopidogrel [was on it for intracranial stent] # new-onset AF/RVR - increased metoprolol, rate control improved - started apixaban for AC, Neuro consulted given brain aneurysm/stenting # transamniasemia - unclear cause, denies EtOH. GI consulted. hep B/C serologies and rest of serological workup pending. statin d/c'ed. # constipation, resolved - bowel regimen # ZHANE - mild, resolved # CANDE - replete # DM2, A1c 11.4 - continue Jardiance, glipizide, radha-dose lispro; hold MTF # hypothyroidism - LT4 # VTE ppx: apixaban # dispo: TBD In my clinical judgment, the patient requires continued inpatient hospitalization for the following reasons: heparinization for NSTEMI, rate control for AF/RVR Time Spent With Patient Time: Total time managing care of this patient today _40___ minutes. Quality Stroke Does the patient have a stroke diagnosis?: No VTE Prior VTE?: No VTE Risk Level:: Medical - moderate - high VTE Device Contraindication: Treatment Not Indicated VTE Drug Contraindication: N/A - Med Ordered
--- NOTE | 2023-02-06 11:04 | P.PNCA_ITS ---
Subjective Subjective Date of Service: 02/06/23 Interval history: She states that she feels okay. No new complaints. No further chest pain. Review of Systems Review of Systems Yes all other systems are reviewed and are negative Constitutional: Reports as per HPI and Reports no additional constitutional complaints Eyes: Reports as per HPI and Denies no additional eye complaints Denies system reviewed and no additional complaints, except as documented and Reports as per HPI Cardiovascular: Reports as per HPI, Reports no additional cardiovascular co mplaints, Denies acrocyanosis, Denies cool extremities, Denies chest pain, Denies leg edema, Denies lightheadedness, Denies palpitations and Denies dyspnea Respiratory: Reports as per HPI, Denies no additional respiratory complaints and Denies dyspnea Gastrointestinal: Reports as per HPI and Denies no additional gastrointestinal complaints Genitourinary: Reports as per HPI Musculoskeletal: Reports no additional musculoskeletal complaints and Reports as per HPI Skin/Breast: Reports system reviewed and no additional complaints, except as docu Reports system reviewed and no additional complaints, except as documented and Reports as per HPI Psychiatric: Reports no additional psychiatric complaints and Reports as per HPI Endocrine: Reports no additional endocrine complaints, Reports as per HPI and Denies palpitations Hematologic/Lymphatic: Reports no additional hematologic/lymphatic complaints and Reports as per HPI Allergic/Immunologic: Reports no additional allergic/immunologic complaints and Reports as per HPI Physical Exam Vital Signs: Last Vital Signs Temp 98.2 F 02/06/23 08:00 Pulse 94 02/06/23 08:00 Resp 20 02/06/23 08:00 BP 136/61 02/06/23 08:00 Pulse Ox 99 02/06/23 08:00 O2 Del Method Room Air 02/06/23 08:00 BMI result Body Mass Index 23.3 Const General: comfortable and no acute distress Orientation/consciousness: patient oriented x3 HEENT Other: Unremarkable Head: Yes normal to inspection Neck Neck: Yes normal visual inspection Chest Chest palpation & inspection: normal inspection of the chest Resp Other: few inspiratory crackles Cardio Palpation: normal PMI Heart sounds: S1 normal heart sound present, S2 normal heart sound present, no gallops, no murmurs and no rubs GI Palpation (GI): Soft to palpation Back/Spine/Pelvis Other: unremarkable Skin General skin exam: no rashes or lesions noted Neuro General: patient oriented x3 Extrem General: Yes normal to inspection Psych Mental Status: mental status grossly normal Objective Labs and Meds 02/06/23 07:43 02/06/23 07:44 Lab results: Laboratory Results - last 24 hr 02/05/23 02/05/23 02/05/23 11:28 15:57 16:35 WBC RBC Hgb Hct MCV MCH MCHC RDW Plt Count MPV Absolute Nucleated RBC Nucleated RBC % (auto) aPTT Heparin Protocol Sodium Potassium Chloride Carbon Dioxide Anion Gap BUN Creatinine Estim Creat Clear Calc Estimated GFR POC Glucose 314 H 164 H Random Glucose Calcium Total Bilirubin AST ALT Alkaline Phosphatase Total Creatine Kinase Total Protein Albumin Stool Occult Blood NEGATIVE 02/05/23 02/05/23 02/06/23 19:40 23:00 00:35 WBC RBC Hgb Hct MCV MCH MCHC RDW Plt Count MPV Absolute Nucleated RBC Nucleated RBC % (auto) aPTT Heparin Protocol Sodium Potassium Chloride Carbon Dioxide Anion Gap BUN Creatinine Estim Creat Clear Calc Estimated GFR POC Glucose 258 H 64 262 H Random Glucose Calcium Total Bilirubin AST ALT Alkaline Phosphatase Total Creatine Kinase Total Protein Albumin Stool Occult Blood 02/06/23 02/06/23 02/06/23 07:01 07:43 07:43 WBC 3.1 L RBC 3.66 L Hgb 8.9 L Hct 29.1 L MCV 79.5 L MCH 24.3 L MCHC 30.6 L RDW 16.6 H Plt Count 159 L MPV 10.6 Absolute Nucleated RBC 0.000 Nucleated RBC % (auto) 0.0 aPTT Heparin Protocol 33.8 L D Sodium Potassium Chloride Carbon Dioxide Anion Gap BUN Creatinine Estim Creat Clear Calc Estimated GFR POC Glucose 169 H Random Glucose Calcium Total Bilirubin AST ALT Alkaline Phosphatase Total Creatine Kinase Total Protein Albumin Stool Occult Blood 02/06/23 02/06/23 07:43 07:44 WBC RBC Hgb Hct MCV MCH MCHC RDW Plt Count MPV Absolute Nucleated RBC Nucleated RBC % (auto) aPTT Heparin Protocol Sodium 139 Potassium 4.4 Chloride 110 H Carbon Dioxide 22 Anion Gap 11 L BUN 18 H Creatinine 0.84 Estim Creat Clear Calc 41.5 Estimated GFR > 60 POC Glucose Random Glucose 163 H Calcium 8.8 D Total Bilirubin 0.6 AST 119 H ALT 107 H Alkaline Phosphatase 179 H Total Creatine Kinase 73 Total Protein 7.1 Albumin 3.2 L Stool Occult Blood Imaging Radiologist's impression: Impressions Abdomen Ultrasound 02/05/23 11:12 IMPRESSION: Normal-appearing liver. Question small cyst in the body/neck of the pancreas. Head CT 02/05/23 12:59 IMPRESSION: No acute intracranial findings. Generalized atrophy and nonspecific periventricular white matter disease. Progress Note: A&P Assessment and plan (1) Acute non-ST elevation myocardial infarction (NSTEMI): Status: Acute Assessment and Plan: Cardiac catheterization reviewed from 2019. Left main without any significant disease. LAD had mid 60% stenosis. In the circumflex, mid section with 70% stenosis and distal 80% stenosis. First marginal had 70% stenosis. 100% proximal RCA stenosis collateralized by [id number] system with diffuse PDA disease and poor runoff. Overall, medical therapy was recommended. Currently, NSTEMI either from atrial fibrillation rapid rate causing secondary NSTEMI or less likely primary event. She is currently pain free. Again discussed with patient regarding conservative care versus repeat catheterization. She again states that she is leaning more towards conservative care only. Not too keen on anything aggressive. Considering numerous medical comorbidities, age, frailty, this seems very reasonable. Hence empiric medical therapy at this time. Echo- LVEF 65-70%. Basal inferior akinesis. (2) New onset a-fib: Status: Acute Assessment and Plan: Beta-blockers and Eliquis. (3) Cerebral aneurysm: Status: Acute Assessment and Plan: History of subarachnoid bleed and calling in the past. She was on dual antiplatelet therapy but now because of Eliquis aspirin has been stopped. Remains on Plavix. Plan Discussed with close friend/family, least at the bedside. She also spoke to the patient and overall agrees with plan. Discussed with Dr. Arambula. Time Spent With Patient Time: Total time managing care of this patient today ____ minutes. Progress Note: Quality Stroke Does the patient have a stroke diagnosis?: No Procedures Date of Service Date of Service: 02/06/23
[2023-02-06 11:20] VITALS: BP 132/74; PULSE 89; RESP 20; TEMP 36.7; O2SAT 100
[2023-02-06 11:52] LABS: Glucose, Whole Blood 316 mg/dL (60-115)
[2023-02-06 15:05] VITALS: BP 114/61; PULSE 69; RESP 20; TEMP 37.1; O2SAT 98
[2023-02-06 16:03] LABS: Glucose, Whole Blood 293 mg/dL (60-115)
[2023-02-06 19:05] VITALS: BP 168/76; PULSE 104; RESP 20; TEMP 37; O2SAT 100
[2023-02-06 19:43] LABS: Glucose, Whole Blood 180 mg/dL (60-115)
[2023-02-06 23:57] VITALS: BP 137/72; PULSE 89; RESP 20; TEMP 37; O2SAT 98
[2023-02-07 03:55] VITALS: BP 145/70; PULSE 87; RESP 20; TEMP 37.2; O2SAT 97
[2023-02-07] MEDS: Levothyroxine Sodium 75 MCG TABLET PO (06:01)
[2023-02-07 06:02] LABS: Hematocrit 26.7 % (37.0-47.0); Hemoglobin 8.3 g/dl (12.0-16.0); Mean Corpuscular HGB Conc 31.1 g/dl (31.0-35.0); Mean Corpuscular Hemoglobin 24.7 pg (27.0-33.0); Mean Corpuscular Volume 79.5 fL (80.0-98.0); Mean Platelet Volume 9.6 fL (9.4-12.3); Platelet Count 147 X10*3/uL (160-400); Red Blood Count 3.36 X10*6/uL (4.20-5.50); Red Cell Distribution Width 16.8 % (11.0-16.0); White Blood Count 3.5 X10*3/uL (4.8-10.8)
[2023-02-07 06:26] LABS: Alanine Aminotransferase 92 U/L (0-31); Albumin Level 3.3 g/dL (3.5-5.0); Alkaline Phosphatase 166 U/L (39-117); Anion Gap 8 (12-20); Aspartate Amino Transferase 90 U/L (5-31); Bilirubin Total 0.6 mg/dL (0.0-1.0); Blood Urea Nitrogen 14 mg/dL (9-16); Calcium 8.8 mg/dL (8.4-10.2); Carbon Dioxide 24 mmol/L (22-29); Chloride 108 mmol/L (96-108); Creatinine Clr Calc Pharmacy 41.5; Estimated Glomerular Filt Rate > 60; Glucose Random 142 mg/dL (60-115); Potassium 4.3 mmol/L (3.3-5.1); Sodium 136 mmol/L (135-145); Total Protein 7.1 g/dL (6.5-8.0)
[2023-02-07 07:27] LABS: Glucose, Whole Blood 147 mg/dL (60-115)
[2023-02-07 07:41] VITALS: BP 104/62; PULSE 95; RESP 20; TEMP 36.8; O2SAT 98
[2023-02-07 08:24] LABS: PTT Heparin Drip 34.9 SEC (53-77.9)
[2023-02-07] MEDS: Clopidogrel Bisulfate 75 MG TABLET PO (09:00)
[2023-02-07] MEDS: Empagliflozin 25 MG TABLET PO (09:00)
[2023-02-07] MEDS: glipiZIDE XL 5 MG TAB.ER.24 PO (09:00)
[2023-02-07] MEDS: Ferrous Sulfate 324 MG TABLET.DR PO (09:00)
[2023-02-07] MEDS: Apixaban 5 MG TABLET PO (09:00)
[2023-02-07] MEDS: Metoprolol Succinate ER 50 MG TAB.ER.24H PO (09:00)
[2023-02-07] MEDS: Sennosides/Docusate Sodium TABLET 2 TAB PO (09:01)
[2023-02-07] MEDS: 0.9 % Sodium Chloride Flush 3 ML SYRINGE IVFLUSH ×2 (09:01→15:10)
[2023-02-07 09:07] LABS: HBS Num1 0.38 mIU/mL (0-7.99); HBc Num1 0.24 S/CO (0.00-0.79); HBsAGNum1 0.34 S/CO (0.00-0.99); Hepatitis B Core Antibody Nonreactive (Nonreactive); Hepatitis B Surface Antigen Negative (Negative); ~Hepatitis B Surface Antibody NONREACTIVE (Nonreactive)
[2023-02-07 10:00] LABS: ~HepC Num1 0.21 S/CO (0.00-0.79); ~Hepatitis C Antibody Nonreactive (Nonreactive)
[2023-02-07 11:19] LABS: Glucose, Whole Blood 351 mg/dL (60-115)
[2023-02-07 11:30] VITALS: BP 117/67; PULSE 65; RESP 18; TEMP 36.5; O2SAT 99
[2023-02-07] MEDS: Insulin Lispro 100 UNIT/ML 3 ML VIAL SUBCUT (11:32)
--- NOTE | 2023-02-07 13:32 | PM.PNCARD ---
Subjective Subjective Date of Service: 02/07/23 Interval history: Seen and examined at bedside. Asymptomatic. She is asking whether she can go home. Physical Exam Vital Signs: Last Vital Signs Temp 97.7 F 02/07/23 11:30 Pulse 65 02/07/23 11:30 Resp 18 02/07/23 11:30 BP 117/67 02/07/23 11:30 Pulse Ox 99 02/07/23 11:30 O2 Del Method Room Air 02/07/23 11:30 BMI result Body Mass Index 23.3 GENERAL APPEARANCE: in no acute distress, pleasant. NECK: no carotid bruit, no jugular venous distention. SKIN: no suspicious lesions, warm and dry. HEART: no murmurs, irregular rate and rhythm. LUNGS: clear to auscultation bilaterally. ABDOMEN: soft, nontender. EXTREMITIES: no edema. PERIPHERAL PULSES: equal. NEUROLOGIC: No gross deficits, AAO X 3 Objective Labs and Meds 02/07/23 05:50 02/07/23 05:50 Lab results: Laboratory Results - last 24 hr 02/06/23 02/06/23 02/06/23 07:43 07:45 15:57 WBC RBC Hgb Hct MCV MCH MCHC RDW Plt Count MPV Absolute Nucleated RBC Nucleated RBC % (auto) aPTT Heparin Protocol Sodium Potassium Chloride Carbon Dioxide Anion Gap BUN Creatinine Estim Creat Clear Calc Estimated GFR POC Glucose 293 H Random Glucose Calcium Total Bilirubin AST ALT Alkaline Phosphatase Total Protein Albumin Hep Bs Antigen Negative Hep Bs Antibody NONREACTIVE Hep B Core Total Ab Nonreactive Hepatitis C Ab (EIA) Nonreactive 02/06/23 02/07/23 02/07/23 19:35 05:50 05:50 WBC 3.5 L RBC 3.36 L Hgb 8.3 L Hct 26.7 L MCV 79.5 L MCH 24.7 L MCHC 31.1 RDW 16.8 H Plt Count 147 L MPV 9.6 Absolute Nucleated RBC 0.000 Nucleated RBC % (auto) 0.0 aPTT Heparin Protocol Sodium 136 Potassium 4.3 Chloride 108 Carbon Dioxide 24 Anion Gap 8 L BUN 14 Creatinine 0.84 Estim Creat Clear Calc 41.5 Estimated GFR > 60 POC Glucose 180 H Random Glucose 142 H Calcium 8.8 Total Bilirubin 0.6 AST 90 H ALT 92 H Alkaline Phosphatase 166 H Total Protein 7.1 Albumin 3.3 L Hep Bs Antigen Hep Bs Antibody Hep B Core Total Ab Hepatitis C Ab (EIA) 02/07/23 02/07/23 02/07/23 07:09 07:59 11:06 WBC RBC Hgb Hct MCV MCH MCHC RDW Plt Count MPV Absolute Nucleated RBC Nucleated RBC % (auto) aPTT Heparin Protocol 34.9 L Sodium Potassium Chloride Carbon Dioxide Anion Gap BUN Creatinine Estim Creat Clear Calc Estimated GFR POC Glucose 147 H 351 H* Random Glucose Calcium Total Bilirubin AST ALT Alkaline Phosphatase Total Protein Albumin Hep Bs Antigen Hep Bs Antibody Hep B Core Total Ab Hepatitis C Ab (EIA) Progress Note: A&P Assessment and plan (1) New onset a-fib: Status: Acute (2) Acute non-ST elevation myocardial infarction (NSTEMI): Status: Acute Plan 82-year-old female who is presenting with chest discomfort and AFib with RVR. She has known history of coronary artery disease. She underwent cardiac catheterization previously in 2019 when she had a CT of the right coronary artery with [id number] collaterals, 75% OM1 mid to distal stenosis and severe distal circumflex stenosis. These were felt to be best treated medically. She is presenting with AFib with RVR chest discomfort. She has mild troponin elevation. She has been rate controlled and has been doing well. She is not interested in doing any aggressive procedures currently. She clinically stable at this point and currently on apixaban and Plavix. Ambulated the hallways and if stable can be discharged home. She follows up with Cardiology elsewhere and can continue to follow as before. Thank you for allowing me to participate in the care of your patient. Please feel free to contact me if you have any questions. Time Spent With Patient Time: Total time managing care of this patient today ____ minutes. Progress Note: Quality Stroke Does the patient have a stroke diagnosis?: No Procedures Date of Service Date of Service: 02/07/23
--- NOTE | 2023-02-07 13:50 | W.MHC.F2F ---
Service Date Service Date: 02/07/23 Encounter Date of encounter: 02/07/23 Reasons for Services Signs and symptoms assessed: impaired standing balance rate control Reason for senior care: medication management, medication treatment and teach disease management Reason for physical therapy: home safety and mobility, therapeutic exercises, gait/transfer training, assess need for DME, ADL training and energy conservation MD Overseeing Care: Kandi King Homebound: Leaving the home is medically contraindicated at this time without the asist of a device and/or another person due th the listed conditions above and below. Reason homebound: fall risk related to blood pressure changes and weakness related to hospital stay Certification: Based on the above findings, I certify that this patient is confined to the home and needs intermittent senior care care, physical therapy and/or speech therapy, or continues to need occupational therapy. The patient is under my care, and I have initiated the establishment of the plan of care. The patient will be followed by a physician who will periodically review the plan of care. Time Spent With Patient Time: Total time managing care of this patient today ____ minutes.
--- NOTE | 2023-02-07 13:56 | P.DS_ITS ---
DS: Providers Provider Date of Service: 02/07/23 Date of admission: 02/03/23 17:35 Date of discharge: 02/07/23 Primary care physician: Kandi Kign NP Consults: 02/03/23 17:59 Consult to Cardiology Routine Consulting Provider: [facility] Reason for consultation: NSTEMI, AFib with RVR 02/05/23 09:48 Consult to Neurology Routine Consulting Provider: [facility] Reason for consultation: intracranial stent for aneurysm.CAD- needs DAPT. AFib- needs Eliquis.Safe? 02/05/23 09:50 Consult to Gastroenterology Routine Consulting Provider: [facility] Reason for consultation: ?transaminasemia of unknown cause DS: Diagnosis Discharge Diagnosis (1) New onset a-fib: Status: Acute (2) Acute non-ST elevation myocardial infarction (NSTEMI): Status: Acute (3) Elevated LFTs: Status: Acute DS: Summary Hospital Course Hospital Course: from admission H+P 02/03/23 by hospitalist EMRE Arredondo: Pt is a 82-year-old female with a PMH significant for CAD, HTN, HLD, [id number] diabetes type 2, hx of brain aneurysm, and hypothyroid?who presents to the ED with?3 days of chest pain/pressure. Pt states chest pain began in the center of her chest and soon migrated to right over her heart. Pains described as constant, radiating up to her throat and to left arm. Pt has also been experiencing shortness of breath with chest pain/pressure, as well as diaphoresis, headache.? Patient has also been dizzy and weak these past 3 days and has not been able to walk or eat much.? Had 1 episode of nausea and vomiting.? Patient states she experienced similar symptoms a few times before with the last episode 3 weeks ago. Also occasionally has had palpitations in the past.? Patient denies fever, chills, abdominal pain.? Patient denies a history of alcohol use or smoking. In the ED patient was afebrile but tachycardic up into the 130s. Labs were significant for H&H of 9.2/29.9, sodium 133, BUN of 32, creatinine of 1.15, random glucose of 361, AST of 102, ALT of 96, alk-phos of 172, BNP of 1195, initial troponin 534.7 with repeat of 695.6.? UA negative for UTI. CXR showed no acute cardiopulmonary process, but did show nondisplaced fracture of the right 6 rib that could be acute or chronic. EKG demonstrated??AFib with RVR of 130 with no evidence of ST elevations, but did show ST depressions in I, V3-V6.?Pt was treated with metoprolol 5 mg IV and 25 mg p.o., and placed on a heparin drip. Pt will be admitted to the hospital for treatment and further evaluation of NSTEMI. 82yo F with CAD with nonstentable dz, HTN, HLD, DM2, hx brain aneursym s/p stenting, hypothyroidism presenting with chest pain/pressure x3d, admitted for NSTEMI, new-onset AF/RVR. [facility] [place] [facility]: Left main without any significant disease.? Lad had mid 60% stenosis.? In the circumflex, mid section with 70% stenosis and distal 80% stenosis.? First marginal had 70% stenosis.? 100% proximal RCA stenosis collateralized by [id number] system with diffuse PDA disease and poor runoff.? Overall, medical therapy was recommended.? Cardiology was consulted and she was given 48 hours of heparnization. Medical management of CAD was recommended, so beta-oriana and clopidogrel were continued. She had persistent AF/RVR and rate control was achieved by increasing metoprolol succinate from 25 mg daily to 50 mg bid. After consulting Neurology given history of brain aneurysm and coil stenting, she was started on apixaban for stroke prevention. She was noted to have elevated tranaminases without history of alcohol intake or chronic hepatitis. Statin was discontinued and serologic workup sent; results are pending at the time of discharge. She should follow-up with [facility] Cardiology for management of CAD and AF, and [facility] Gastroenterology for follow-up on the elevated LFTs. Abdominal US did show a normal liver but question of a small cyst in the body/neck of the pancreas measuring 4 x 5 mm. This can be worked up with an outpatient MRI/MRCP if the patient decides to pursue the workup. Time Spent with Patient Time attestation: Total time managing care of this patient today __55_ minutes. Discharge coordination time: Greater than 30 minutes Quality: Safe Use of Opioids Does Pt have an Active Cancer Diagnosis on the Problem List?: No Quality: Stroke Does the patient have a stroke diagnosis?: No Physical Exam Vital Signs: Vital Signs: Last Vital Signs Temp 97.7 F 02/07/23 11:30 Pulse 65 02/07/23 11:30 Resp 18 02/07/23 11:30 BP 117/67 02/07/23 11:30 Pulse Ox 99 02/07/23 11:30 O2 Del Method Room Air 02/07/23 11:30 BMI result Body Mass Index 23.3 Gen: in no acute distress HEENT: sclera anicteric, moist mucus membranes Neck: supple Lungs: clear to auscultation bilaterally Heart: irregularly irreguar, no murmurs Abd: soft, non-tender, non-distended Ext: no edema Skin: warm/well-perfused Neuro: alert and oriented x3, no focal findings Psych: appropriate affect DS: Data Data Completed and Pending Completed studies during hospitalization [Text1]: Laboratory Results WBC 3.5 X10*3/uL (4.8-10.8) L 02/07/23 05:50 RBC 3.36 X10*6/uL (4.20-5.50) L 02/07/23 05:50 Hgb 8.3 g/dl (12.0-16.0) L 02/07/23 05:50 Hct 26.7 % (37.0-47.0) L 02/07/23 05:50 MCV 79.5 fL (80.0-98.0) L 02/07/23 05:50 MCH 24.7 pg (27.0-33.0) L 02/07/23 05:50 MCHC 31.1 g/dl (31.0-35.0) 02/07/23 05:50 RDW 16.8 % (11.0-16.0) H 02/07/23 05:50 Plt Count 147 X10*3/uL (160-400) L 02/07/23 05:50 MPV 9.6 fL (9.4-12.3) 02/07/23 05:50 Immature Gran % (Auto) 0.4 % (0.0-0.4) 02/03/23 13:51 Neut % (Auto) 73.1 % (45-73) H 02/03/23 13:51 Lymph % (Auto) 16.4 % (20-40) L 02/03/23 13:51 [place] % (Auto) 8.9 % (2-11) 02/03/23 13:51 Eos % (Auto) 0.6 % (0-4) 02/03/23 13:51 Baso % (Auto) 0.6 % (0-2) 02/03/23 13:51 Lymph # (Auto) 0.9 X10*3/uL (1.2-4.9) L 02/03/23 13:51 [place] # (Auto) 0.5 X10*3/uL (0.1-1.2) 02/03/23 13:51 Eos # (Auto) 0.0 X10*3/uL (0.0-0.4) 02/03/23 13:51 Baso # (Auto) 0.0 X10*3/uL (0.0-0.2) 02/03/23 13:51 Abs Immat Gran (auto) 0.02 X10*3/uL (0.00-0.03) 02/03/23 13:51 Absolute Neuts (auto) 3.9 x10*3/uL (2.0-8.3) 02/03/23 13:51 Absolute Nucleated RBC 0.000 X10*3/uL (0.0-0.012) 02/07/23 05:50 Nucleated RBC % (auto) 0.0 /100WBC (0.0-0.2) 02/07/23 05:50 PT 12.7 SEC (10.0-13.1) 02/04/23 06:14 PT Cancelled 02/04/23 06:14 INR 1.1 (0.9-1.1) 02/04/23 06:14 INR Cancelled 02/04/23 06:14 aPTT Heparin Protocol 34.9 SEC (53-77.9) L 02/07/23 07:59 D-Dimer High Sensitivty 151 NG/ML 02/03/23 13:51 Sodium 136 mmol/L (135-145) 02/07/23 05:50 Potassium 4.3 mmol/L (3.3-5.1) 02/07/23 05:50 Chloride 108 mmol/L (96-108) 02/07/23 05:50 Carbon Dioxide 24 mmol/L (22-29) 02/07/23 05:50 Anion Gap 8 (12-20) L 02/07/23 05:50 BUN 14 mg/dL (9-16) 02/07/23 05:50 Creatinine 0.84 mg/dL (0.5-1.4) 02/07/23 05:50 Estim Creat Clear Calc 41.5 02/07/23 05:50 Estimated GFR > 60 02/07/23 05:50 POC Glucose 351 mg/dL (60-115) H* 02/07/23 11:06 Random Glucose 142 mg/dL (60-115) H 02/07/23 05:50 Estimat Average Glucose 280 mg/dL 02/04/23 06:14 Hemoglobin A1c % 11.4 % 02/04/23 06:14 Calcium 8.8 mg/dL (8.4-10.2) 02/07/23 05:50 Magnesium 1.9 mg/dL (1.6-2.6) 02/05/23 04:35 Iron 31 mcg/dL (30-160) 02/04/23 06:14 TIBC 325 mcg/dL (228-428) 02/04/23 06:14 % Saturation 10 % (15-50) L 02/04/23 06:14 Unsat Iron Binding 294 ug/dL 02/04/23 06:14 Ferritin 23 ng/mL (10-250) 02/04/23 06:14 Total Bilirubin 0.6 mg/dL (0.0-1.0) 02/07/23 05:50 Direct Bilirubin 0.3 mg/dL (0.0-0.5) 02/05/23 04:35 GGT 281 U/L (7-33) H 02/05/23 04:35 AST 90 U/L (5-31) H 02/07/23 05:50 ALT 92 U/L (0-31) H 02/07/23 05:50 Alkaline Phosphatase 166 U/L (39-117) H 02/07/23 05:50 Total Creatine Kinase 73 U/L (26-140) 02/06/23 07:43 Troponin I High Sens 555.5 ng/L (<3.5-17.0) H* 02/04/23 08:27 B-Natriuretic Peptide 781 pg/mL (<100) H 02/04/23 06:14 Total Protein 7.1 g/dL (6.5-8.0) 02/07/23 05:50 Albumin 3.3 g/dL (3.5-5.0) L 02/07/23 05:50 Triglycerides 143 mg/dL 02/04/23 06:14 Cholesterol 128 mg/dL 02/04/23 06:14 LDL Cholesterol, Calc 60 mg/dl 02/04/23 06:14 HDL Cholesterol 40 mg/dL 02/04/23 06:14 Urine Color Yellow 02/03/23 13:25 Urine Appearance Clear 02/03/23 13:25 Urine pH 5.5 (5.0-9.0) 02/03/23 13:25 Ur Specific [place] >= 1.030 (1.005-1.025) H 02/03/23 13:25 Urine Protein Negative mg/dL (Neg-Trace) 02/03/23 13:25 Urine Glucose (UA) >=1000 mg/dL (Negative) H 02/03/23 13:25 Urine Ketones Trace mg/dL (Negative) 02/03/23 13:25 Urine Blood Negative (Negative) 02/03/23 13:25 Urine Nitrite Negative (Negative) 02/03/23 13:25 Ur Leukocyte Esterase Negative (Negative) 02/03/23 13:25 Urine RBC 0-2 /HPF (0-2) 02/03/23 13:25 Urine WBC 0-5 /HPF (0-5) 02/03/23 13:25 Ur Squamous Epith Cells 0-2 /HPF (0-2) 02/03/23 13:25 Urine Bacteria None Seen (None Seen) 02/03/23 13:25 Hyaline Casts 0-2 /LPF (0-2) 02/03/23 13:25 Stool Occult Blood NEGATIVE (NEGATIVE) 02/05/23 16:35 COVID-19 (MARYANN) Negative (Negative) 02/03/23 13:25 COVID-19 Clin Com See Note 02/03/23 13:25 Hep Bs Antigen Negative (Negative) 02/06/23 07:45 Hep Bs Antibody NONREACTIVE (Nonreactive) 02/06/23 07:45 Hep B Core Total Ab Nonreactive (Nonreactive) 02/06/23 07:45 Hepatitis C Ab (EIA) Nonreactive (Nonreactive) 02/06/23 07:43 Impressions Chest X-Ray 02/03/23 14:02 IMPRESSION: No acute parenchymal disease within the chest. Nondisplaced fracture which may be acute or chronic involving the right sixth rib. Head CTA 02/04/23 12:55 IMPRESSION: 1. No acute intracranial abnormality. 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 2. 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 Anterior and posterior circulation is patent without significant stenosis or occlusion. No intracranial arterial stent identified. Abdomen Ultrasound 02/05/23 11:12 IMPRESSION: Normal-appearing liver. Question small cyst in the body/neck of the pancreas. Head CT 02/05/23 12:59 IMPRESSION: No acute intracranial findings. Generalized atrophy and nonspecific periventricular white matter disease. TTE 02/04/23 - The left ventricular systolic function is normal.? The visually estimated ejection fraction is between 65-70%. ? - The basal inferior segment is akinetic.? - No obvious valvular pathology seen on this study.? Pending studies at discharge: Pending from 02/07/23: ARLINE AMA ASMA SPEP Anti-TTG IgG+IgA Discharge Plan Discharge Anticipated Discharge Date/Time: 02/07/23 13:50 Patient Disposition: Home Health Service Discharge Diagnosis: Atrial fibrillation with rapid ventricular response NSTEMI Elevated LFTs Referrals: Leah CHOWDHURY [Outside] - 1 Week (HOME SERVICES FOR PHYSICAL THERAPY AND HALF-WAY- THE NURSE WILL REACH OUT TO YOU TO SET UP FIRST VISIT) Kandi King NP [Primary Care Provider] - 1 Week Jamaal Zelaya MD [Physician] - 1 Week Discharge Medications: New Eliquis 5 mg Tablet 5 mg PO BID Qty: 60 0RF ferrous sulfate 324 mg (65 mg iron) Tablet,Delayed Release (Dr/Ec) 324 mg PO DAILY Qty: 30 0RF polyethylene glycol 3350 17 gram Powder In Packet 17 g PO DAILY PRN (Reason: constipation) Qty: 30 0RF metoprolol succinate 50 mg Tablet Extended Release 24 Hr 50 mg PO BID Qty: 60 0RF Protocol: Hold for SBP/HR < HOLD for SBP < : 90 HOLD for HR < : 60 docusate sodium 100 mg capsule 100 mg PO BID Qty: 60 0RF Continued clopidogrel 75 mg tablet 75 mg PO DAILY levothyroxine 75 mcg tablet 75 mcg PO DAILY glipizide 2.5 mg tablet extended release 24hr 5 mg PO BID metformin 1,000 mg tablet 1,000 mg PO BID Jardiance 25 mg tablet 25 mg PO DAILY Discontinued losartan 50 mg tablet 100 mg PO DAILY atorvastatin 80 mg tablet 80 mg PO BEDTIME metoprolol succinate 25 mg tablet extended release 24 hr 25 mg PO DAILY Discharge Orders: Discharge Order (Routine); Ordered 02/07/23 Ordered By: Andrew Arambula Diet: Diabetic diet Activity on Discharge: As tolerated Stand Alone Forms: Patient Portal Discharge page Care Plan Goals: Cardiac health Health Concerns: Atrial fibrillation with rapid ventricular response NSTEMI Elevated LFTs Plan of Treatment: Atrial fibrillation with rapid ventricular response - Increase metoprolol succinate from 25 mg daily to 50 mg TWICE daily to control heart rate - Stop losartan so blood pressure doesn't drop too much - Start apixaban 5 mg twice daily to prevent stroke NSTEMI - Continue clopidogrel 75 mg daily - Metoprolol as above - Follow up with [facility] in 1-2 weeks Elevated LFTs - Stop atorvastatin for now - Follow up with [facility] Gastroenterology in 2-4 weeks for results of workup Assessment: See Discharge Summary.
[2023-02-07 15:01] VITALS: BP 117/67; PULSE 65; O2SAT 99
[2023-02-07 16:21] LABS: Glucose, Whole Blood 145 mg/dL (60-115)
--- NOTE | 2023-02-07 16:29 | MHC.CM.PN ---
DP: PT HAS BEEN MEDICALLY CLEARED FOR DC HOME WITH NEW VNA SERVICES. [facility] NURSE ERIC HAS APPROVED SN SERVICES WITH [facility], WILL LET CM KNOW 02/08 IF P.T. FROM [facility] CAN ACCOMMODATE. NEW REFERRAL SENT TO [facility], WILL F/U IN AM REGARDING P.T. SISTER TO TRANSPORT
[2023-02-08 17:05] LABS: Transglutaminase Ab IgG <1.0 U/mL; Transglutaminase IgA <1.0 U/mL
[2023-02-09 11:34] LABS: Mitochondrial Antibodies NEGATIVE (NEGATIVE)
[2023-02-09 14:48] LABS: Anti Nuclear Antibody Screen NEGATIVE (NEGATIVE)
[2023-02-10 18:44] LABS: Prot Elec - Albumin 3.4 g/dL (3.8-4.8); Prot Elec - Alpha1 0.3 g/dL (0.2-0.3); Prot Elec - Alpha2 0.7 g/dL (0.5-0.9); Prot Elec - Beta 1 0.5 g/dL (0.4-0.6); Prot Elec - Beta 2 0.4 g/dL (0.2-0.5); Prot Elec - Total Protein 7.2 g/dL (6.1-8.1)
[2023-02-11 14:33] LABS: Smooth Muscle Antibody 102 U (<20)
--- NOTE | 2023-03-01 16:41 | P.CDIM_ITS ---
PROVIDER RESPONSE TEXT: To clarify, the appropriate diagnosis supported by the clinical indicators: Diabetes Mellitus Type 2 with hyperglycemia, uncontrolled etc. QUERY TEXT: PHYSICIAN'S DOCUMENTATION REQUEST Date of Query: 02/07/2023 11:47 AM EDT Patient Name: Tammy Cruz Admit Date: 02/03/2023 Dear Andrew Arambula, A review of the medical record indicates additional documentation may be needed. Please review below and update the documentation accordingly. Clinical Indicators: POC Glucose: 312 351 Humalog DM2, continue Jardiance, glipizide. Please clarify the following regarding the lab findings: Diabetes Mellitus Type 2 with hyperglycemia, uncontrolled etc. Unable to determine Other diagnosis that correlates with these labs Other (explain)Clinically unable to determine (explain)Thank you, Araceli Calderon, CCS, CDIS Use of terms such as suspected, likely, concern for, or probable (associated with a specific diagnosi s that is being evaluated, monitored, or treated as if it exists) are acceptable and can be coded in the inpatient se tting, when documented at the time of discharge. Please use your independent medical judgment in providing your response. THIS QUERY IS PART OF THE PERMANENT MEDICAL RECORD
== END 2023-02-07 18:16 | disposition home health service (06) | DRG 281 ==
LOC: HO.ED 14:47 → HO.EDOVER 18:00 → HO.IMC 18:04
PROVIDERS: Hospitalist; Internal Medicine Cardiovascular Disease; Physician Assistant; Student in an Organized Health Care Education/Training Program; Admitting Provider Student in an Organized Health Care Education/Training Program; Emergency Provider Student in an Organized Health Care Education/Training Program; PCP Nurse Practitioner Adult Health; Visit Provider Family Medicine
DX: I21.4 Non-ST elevation (NSTEMI) myocardial infarction (principal); I48.19 Other persistent atrial fibrillation; N17.9 Acute kidney failure, unspecified; Z66 Do not resuscitate; I12.9 Hypertensive chronic kidney disease with stage 1 through stage 4 chronic kidney disease, or unspecified chronic kidney disease; N18.30 Chronic kidney disease, stage 3 unspecified; E11.22 Type 2 diabetes mellitus with diabetic chronic kidney disease; D50.9 Iron deficiency anemia, unspecified; I25.10 Atherosclerotic heart disease of native coronary artery without angina pectoris; E03.9 Hypothyroidism, unspecified; I67.1 Cerebral aneurysm, nonruptured; K59.00 Constipation, unspecified; E11.65 Type 2 diabetes mellitus with hyperglycemia; D63.1 Anemia in chronic kidney disease; Z20.822 Contact with and (suspected) exposure to COVID-19; Z79.02 Long term (current) use of antithrombotics/antiplatelets; Z79.84 Long term (current) use of oral hypoglycemic drugs; Z79.890 Hormone replacement therapy; Z79.899 Other long term (current) drug therapy
CPT/HCPCS: 36415; 70450; 70496; 71045; 76700; 80048; 80053; 80061; 80076; 81001; 82272; 82550; 82728; 82947; 82977; 83036; 83540; 83735; 83880; 84165; 84484; 85025; 85027; 85379; 85610; 85730; 86015; 86038; 86255; 86256; 86364; 86704; 86706; 86803; 87340; 87635; 93005; 93306; 97161; 99285; J1643; Q9957; Q9967

== ENCOUNTER → 2023-02-23 10:46 | Outpatient (BNVA) | payer OTHER, SELFPAY | PROVIDERS: PCP Nurse Practitioner Adult Health; Visit Provider Internal Medicine | DX: I25.10 Atherosclerotic heart disease of native coronary artery without angina pectoris (principal); I48.19 Other persistent atrial fibrillation; Z79.899 Other long term (current) drug therapy | CPT/HCPCS: 93005; 99212 ==

== ENCOUNTER → 2023-03-22 11:03 | Outpatient (BNVA) | payer OTHER, SELFPAY | PROVIDERS: PCP Nurse Practitioner Adult Health; Visit Provider Internal Medicine | DX: I25.10 Atherosclerotic heart disease of native coronary artery without angina pectoris (principal); I48.19 Other persistent atrial fibrillation; I10 Essential (primary) hypertension | CPT/HCPCS: 93005; 99212 ==

== ENCOUNTER → 2023-03-31 09:57 | Outpatient (REF) | payer OTHER, SELFPAY ==
--- NOTE | 2023-03-31 09:59 | HM_ITS ---
Conclusion: 1. Patient was monitored for total period of 7 days 2. Baseline rhythm is atrial fibrillation with average heart of 102 beats per minute within adequate rate control 3. No significant pauses noted 4. No patient reported events MTDD
== END ==
LOC: HO.CARD 09:57
PROVIDERS: Visit Provider Internal Medicine
DX: R00.2 Palpitations (principal); I48.19 Other persistent atrial fibrillation
CPT/HCPCS: 93242

== ENCOUNTER → 2023-03-31 09:59 | Outpatient (BNV) | payer OTHER, SELFPAY | PROVIDERS: Visit Provider Internal Medicine Cardiovascular Disease | DX: I48.19 Other persistent atrial fibrillation (principal) | CPT/HCPCS: 93244 ==

== ENCOUNTER 2023-05-25 14:33 | Outpatient (AMB) | payer OTHER, SELFPAY ==
--- NOTE | 2023-05-25 14:37 | A.OFFVIS_ITS ---
Intake Vital Signs 05/25/23 14:40 Height 5 ft 2 in Weight 121 lb 4.068 oz BMI 22.2 BP 128/68 Blood Pressure Location Lt brachial Position Sitting Pulse 78 Intake Visit Reasons: 2 mth Intake Note: 2 month follow up Director Surface Transportation Required: Yes Director Surface Transportation Language: Spanish Director Surface Transportation Name: Fabiola [id number] Accompanied by: Self / Same As Patient Allergies No Known Allergies [No Known Allergies*] Allergy (Verified 05/25/23 14:37) Medication List - Last Reconciled 05/25/23 by Jamaal Zelaya MD apixaban (Eliquis) 5 mg PO BID docusate sodium 100 mg PO BID empagliflozin (Jardiance) 25 mg PO DAILY ferrous sulfate 324 mg PO DAILY glipizide ER 5 mg PO BID levothyroxine 88 mcg PO DAILY metformin 1,000 mg PO BID metoprolol succinate ER 50 mg PO DAILY 90 days nitroglycerin 0.4 mg sublingual Q5M PRN polyethylene glycol 3350 17 grams PO DAILY PRN HPI HPI Comments History of Present Illness Details Tammy returns for follow-up. Difficult to get a history or evaluate well as she does not speak Belgian. Hence used Spanish online advertising analyst. To an extent we can go over the issues but still difficult. Patient has multiple medical comorbidities including coronary disease, hypertension, dyslipidemia, diabetes as well as brain aneurysm. Few months back, she presented to the hospital with chest pain. Troponins were elevated. On review of cardiac catheterization 2018, she had multi vessel CAD. At that time however based on anatomy medical therapy was recommended. In the current hospitalization, she also had atrial fibrillation with rapid rate. Beta-oriana dose was increased. Then anticoagulation started. We had discussed about a repeat catheterization but she was absolutely against it and hence patient was discharged home on medical therapy. Subsequently, during outpatient follow-up as she was in atrial fibrillation rapid rate we also added amiodarone for rate control as her blood pressure was also low. Then she began too bradycardic and subsequently, got admitted to [facility] where amiodarone was stopped and the beta-oriana dose is again reduced. One further Holter and the heart rates or predictability on the higher side. Again we made a small change in beta-oriana dosing. Overall, difficult to manage due to various issues including her not wanting any procedures as well as lack of Belgian. From cardiac, no specific symptoms. PFSH Medical History (Updated 03/22/23 @ 11:53 by Jamaal Zelaya MD) Brain aneurysm Cerebral aneurysm Coronary artery disease Essential hypertension Subarachnoid hemorrhage Type 2 diabetes mellitus Family History Father No problems noted. Mother No problems noted. Social History Household Members: None Housing: House Do you presently have visiting nurse or other home services: Yes (home health aide) Patient Tobacco Use Status: Never used Tobacco e-Cigarette/Vaping Use: Never Used Second Hand Smoke Exposure: No service: No Current occupational status: retired Review of Systems Const Denies weakness ENT Denies dizziness Card Denies chest pain, Denies chest pain with activity, Denies syncope, Denies rapid heart rate, Denies pedal edema, Denies edema, Denies leg edema, Denies lightheadedness, Denies palpitations, Denies dyspnea, Denies dyspnea on exertion and Denies orthopnea Resp Denies cough, Denies dyspnea and Denies dyspnea on exertion GI Denies hematochezia and Denies change in stool character Musc Denies abnormal gait, Denies muscle cramps, Denies muscle weakness, Denies numbness, Denies radiating pain into limb and Denies tingling Neuro Denies abnormal gait, Denies dizziness, Denies syncope, Denies numbness, Denies tingling and Denies weakness Endo Denies palpitations Physical Exam Vital Signs: Last Vital Signs Pulse 78 05/25/23 14:40 BP 128/68 05/25/23 14:40 BMI result Body Mass Index 22.2 Const General: comfortable and no acute distress Orientation/consciousness: patient oriented x3 HEENT Other: Unremarkable Head: Yes normal to inspection Neck Neck: Yes normal visual inspection Chest Chest palpation & inspection: normal inspection of the chest Resp Auscultation: clear to auscultation bilaterally Cardio Palpation: normal PMI Heart sounds: S1 normal heart sound present, S2 normal heart sound present, no gallops, no murmurs and no rubs GI Palpation (GI): Soft to palpation Back/Spine/Pelvis Other: unremarkable Skin General skin exam: no rashes or lesions noted Neuro General: patient oriented x3 Extrem General: Yes normal to inspection Psych Mental Status: mental status grossly normal Assessment & Plan Assessment & Plan (1) Coronary artery disease: Code(s): I25.10 - Atherosclerotic heart disease of [place] coronary artery without angina pectoris Plan: Cardiac catheterization reviewed from 2019. Left main without any significant disease. LAD had mid 60% stenosis. In the circumflex, mid section with 70% stenosis and distal 80% stenosis. First marginal had 70% stenosis. 100% proximal RCA stenosis collateralized by [id number] system with diffuse PDA disease and poor runoff. Overall, medical therapy was recommended. Patient does not want any further invasive procedures. Hence medical treatment only. She has needs to be on statin but not in her list. [facility] discharge summary had atorvastatin 80 mg daily and she states she she is still taking. Will verify with pharmacy. (2) Persistent atrial fibrillation: Code(s): I48.19 - Other persistent atrial fibrillation Plan: While taking metoprolol 50 mg b.i.d. with amiodarone, she was too bradycardic. Hence we will try metoprolol some 10 mg daily and check another Holter. Continue anticoagulation. (3) Essential hypertension: Code(s): I10 - Essential (primary) hypertension Plan: Stable. No changes. Plan Discussed using Spanish online advertising analyst. Medications: Changed From metoprolol succinate ER 50 mg PO DAILY 90 days 90 tabs 1RF To metoprolol succinate ER 75 mg (1.5 x 50 mg) PO DAILY 90 days 135 tabs 1RF Coding Level of Care Code Est Pt Level 4 (51770) Diagnoses Coronary artery disease I25.10 Persistent atrial fibrillation I48.19 Essential hypertension I10
[2023-05-25 14:40] VITALS: BP 128/68; PULSE 78; BMI 22.2
== END 2023-05-25 15:07 | disposition home or self-care (01) ==
PROVIDERS: PCP Nurse Practitioner Adult Health; Visit Provider Internal Medicine
DX: I25.10 Atherosclerotic heart disease of native coronary artery without angina pectoris (principal); I48.19 Other persistent atrial fibrillation; I10 Essential (primary) hypertension
CPT/HCPCS: 99214

== ENCOUNTER → 2023-05-25 14:33 | Outpatient (BNVA) | payer OTHER, SELFPAY | PROVIDERS: PCP Nurse Practitioner Adult Health; Visit Provider Internal Medicine | DX: I25.10 Atherosclerotic heart disease of native coronary artery without angina pectoris (principal); I48.19 Other persistent atrial fibrillation; I10 Essential (primary) hypertension; Z98.890 Other specified postprocedural states | CPT/HCPCS: 99212 ==

== ENCOUNTER → 2023-06-17 13:06 | Outpatient (REF) | payer OTHER, SELFPAY ==
--- NOTE | 2023-06-17 13:09 | HM_ITS ---
* Total monitoring time 2 days. * Underlying rhythm is atrial fibrillation. Average ventricular rate 93/Min. Range 63 to 127/Min. * About 13% of the time, rate greater than 100/Min. No significant bradycardia, pauses or heart blocks. * No patient markers or events in diary. MTDD
== END ==
LOC: HO.CARD 13:06
PROVIDERS: Visit Provider Internal Medicine
DX: I48.19 Other persistent atrial fibrillation (principal)
CPT/HCPCS: 93242

== ENCOUNTER → 2023-06-17 13:09 | Outpatient (BNV) | payer OTHER, SELFPAY | PROVIDERS: Visit Provider Internal Medicine | DX: I48.19 Other persistent atrial fibrillation (principal) | CPT/HCPCS: 93244 ==

== ENCOUNTER 2023-08-24 09:57 | Outpatient (AMB) | payer OTHER, SELFPAY ==
--- NOTE | 2023-08-24 10:01 | MHC.OFFVIS ---
Intake Vital Signs 08/24/23 10:09 Height 5 ft 2 in Weight 121 lb 11.123 oz BMI 22.3 BP 118/66 Blood Pressure Location Lt brachial Position Sitting Pulse 94 Intake Visit Reasons: 3 mth s/p holter Intake Note: 3 month follow up Supervisor Pressing Department Required: Yes Supervisor Pressing Department Language: Japanese Supervisor Pressing Department Name: Tatyana [id number] Accompanied by: Sister Allergies No Known Allergies [No Known Allergies*] Allergy (Verified 08/24/23 10:05) Medication List - Last Reconciled 08/24/23 by Jamaal Zelaya MD apixaban (Eliquis) 5 mg PO BID atorvastatin 80 mg PO DAILY empagliflozin (Jardiance) 25 mg PO DAILY glipizide ER 5 mg PO BID levothyroxine 88 mcg PO DAILY losartan 50 mg PO DAILY metformin 1,000 mg PO BID metoprolol succinate ER 75 mg (1.5 x 50 mg) PO DAILY 90 days nitroglycerin 0.4 mg sublingual Q5M PRN HPI HPI Comments History of Present Illness Details Tammy returns for follow-up. Communication using Japanese die sinker apprentice. Sister also present. Patient has multiple medical comorbidities including coronary disease, hypertension, dyslipidemia, diabetes as well as history of brain aneurysm. Few months back, she presented to the hospital with chest pain. Troponins were elevated. On review of cardiac catheterization 2018, she had multi vessel CAD. At that time however based on anatomy medical therapy was recommended. In the current hospitalization, she also had atrial fibrillation with rapid rate. Beta-oriana dose was increased. Then anticoagulation started. We had discussed about a repeat catheterization but she was absolutely against it and hence patient was discharged home on medical therapy. Subsequently, during outpatient follow-up as she was in atrial fibrillation rapid rate we also added amiodarone for rate control as her blood pressure was also low. Then she became too bradycardic and subsequently, [place] [facility] amiodarone was stopped and the beta-oriana dose again reduced. After that, further med changes including a small increase in beta-oriana dose based on Holter. Overall, she is doing good. Occasional chest pains but not limiting and otherwise getting along fine. [facility], [facility] Medical History (Updated 08/24/23 @ 11:16 by Jamaal Zelaya MD) Cerebral aneurysm Brain aneurysm Subarachnoid hemorrhage Coronary artery disease Essential hypertension Type 2 diabetes mellitus Family History Father No problems noted. Mother No problems noted. Social History Household Members: None Housing: House Do you presently have visiting nurse or other home services: Yes (home health aide) Patient Tobacco Use Status: Never used Tobacco e-Cigarette/Vaping Use: Never Used Second Hand Smoke Exposure: No service: No Current occupational status: retired Review of Systems Const Denies weakness ENT Denies dizziness Card Denies chest pain, Denies chest pain with activity, Denies syncope, Denies rapid heart rate, Denies pedal edema, Denies edema, Denies leg edema, Denies lightheadedness, Denies palpitations, Denies dyspnea, Denies dyspnea on exertion and Denies orthopnea Resp Denies cough, Denies dyspnea and Denies dyspnea on exertion GI Denies hematochezia and Denies change in stool character Musc Denies abnormal gait, Denies muscle cramps, Denies muscle weakness, Denies numbness, Denies radiating pain into limb and Denies tingling Neuro Denies abnormal gait, Denies dizziness, Denies syncope, Denies numbness, Denies tingling and Denies weakness Endo Denies palpitations Physical Exam Vital Signs: Last Vital Signs Pulse 94 08/24/23 10:09 BP 118/66 08/24/23 10:09 BMI result Body Mass Index 22.3 Const General: comfortable and no acute distress Orientation/consciousness: patient oriented x3 HEENT Other: Unremarkable Head: Yes normal to inspection Neck Neck: Yes normal visual inspection Chest Chest palpation & inspection: normal inspection of the chest Resp Auscultation: clear to auscultation bilaterally Cardio Palpation: normal PMI Heart sounds: S1 normal heart sound present, S2 normal heart sound present, no gallops, no murmurs and no rubs GI Palpation (GI): Soft to palpation Back/Spine/Pelvis Other: unremarkable Skin General skin exam: no rashes or lesions noted Neuro General: patient oriented x3 Extrem General: Yes normal to inspection Psych Mental Status: mental status grossly normal Assessment & Plan Assessment & Plan (1) Coronary artery disease: Code(s): I25.10 - Atherosclerotic heart disease of [place] coronary artery without angina pectoris Qualifiers: Coronary Disease-Associated Artery/Lesion type: [place] artery [place] vs. transplanted heart: [place] heart Associated angina: with stable angina Qualified Code(s): I25.118 - Atherosclerotic heart disease of [place] coronary artery with other forms of angina pectoris Plan: Cardiac catheterization reviewed from 2019. Left main without any significant disease. LAD had mid 60% stenosis. In the circumflex, mid section with 70% stenosis and distal 80% stenosis. First marginal had 70% stenosis. 100% proximal RCA stenosis collateralized by [id number] system with diffuse PDA disease and poor runoff. Overall, medical therapy was recommended. Patient does not want any further invasive procedures. Hence medical treatment only. May use sublingual nitroglycerin as needed. Already on beta-blockers. Continue statins. Lipids to be followed to her own PCP as there is a lot of confusion with medications. (2) Persistent atrial fibrillation: Code(s): I48.19 - Other persistent atrial fibrillation Plan: While taking metoprolol 50 mg b.i.d. with amiodarone, she was too bradycardic. Currently on is slightly smaller dose at metoprolol ER 75 mg daily. No further changes for now. If necessary, consider adding a small dose of digoxin in the future. Continue anticoagulation. (3) Essential hypertension: Code(s): I10 - Essential (primary) hypertension Plan: Stable. No changes. Plan Discussed using Japanese die sinker apprentice. Also discussed with sister who came for appointment. Coding Level of Care Code Est Pt Level 4 (80661) Diagnoses Coronary artery disease of [place] artery of [place] heart with stable angina pectoris I25.118 Coronary Disease-Associated Artery/Lesion type: [place] artery [place] vs. transplanted heart: [place] heart Associated angina: with stable angina Persistent atrial fibrillation I48.19 Essential hypertension I10
[2023-08-24 10:09] VITALS: BP 118/66; PULSE 94; BMI 22.3
== END 2023-08-24 10:22 | disposition home or self-care (01) ==
PROVIDERS: PCP Nurse Practitioner Adult Health; Visit Provider Internal Medicine
DX: I25.118 Atherosclerotic heart disease of native coronary artery with other forms of angina pectoris (principal); I48.19 Other persistent atrial fibrillation; I10 Essential (primary) hypertension
CPT/HCPCS: 99214

== ENCOUNTER → 2023-08-24 09:57 | Outpatient (BNVA) | payer OTHER, SELFPAY | PROVIDERS: PCP Nurse Practitioner Adult Health; Visit Provider Internal Medicine | DX: I25.118 Atherosclerotic heart disease of native coronary artery with other forms of angina pectoris (principal); I48.19 Other persistent atrial fibrillation; I10 Essential (primary) hypertension | CPT/HCPCS: 99212 ==

== ENCOUNTER 2024-03-12 13:45 | Outpatient (AMB) | payer OTHER, SELFPAY ==
--- NOTE | 2024-03-12 13:50 | MHC.OFFVIS ---
Vital Signs 03/12/24 13:52 Height 5 ft 2 in Weight 116 lb 13.52 oz BMI 21.4 BP 118/60 Blood Pressure Location Lt brachial Position Sitting Pulse 111 H Pulse Source Pulse Oximeter Intake Visit Reasons: 6 mth fu Movie Theater Usher Required: Yes Movie Theater Usher Name: SEBASTIAN [id number] Allergies No Known Allergies [No Known Allergies*] Allergy (Verified 08/24/23 10:05) Medication List - Last Reconciled 03/12/24 by Jamaal Zelaya MD apixaban (Eliquis) 5 mg PO BID atorvastatin 80 mg PO DAILY empagliflozin (Jardiance) 25 mg PO DAILY glipizide ER 5 mg PO BID levothyroxine 88 mcg PO DAILY losartan 50 mg PO DAILY metformin 1,000 mg PO BID metoprolol succinate ER 75 mg (1.5 x 50 mg) PO DAILY 90 days nitroglycerin 0.4 mg sublingual Q5M PRN HPI Comments Details: Tammy returns for follow-up. Communication using [place] medical interpreter. Sister also present. Long medical history. Based on cardiac catheterization 2018, has multivessel CAD. Medical therapy was recommended based on anatomy. In 2022, admission to hospital with NSTEMI. However, patient wanted only medical therapy and hence meds optimized. She also had atrial fibrillation rapid rate. Subsequently, her beta-oriana dose was increased and she was also started on amiodarone for rate control. Digoxin was not used as she has a history of multivessel disease. Any case, it seems that she had bradycardia and got readmitted to [facility] and at that time, amiodarone was stopped and beta-oriana dose was decreased. Since then, she has generally been stable. No clear-cut angina. Some sensation of rapid heart rates off and on but not too much. Mostly getting along fine. [facility] Medical History (Updated 08/24/23 @ 11:16 by Jamaal Zelaya MD) Cerebral aneurysm Brain aneurysm Subarachnoid hemorrhage Coronary artery disease Essential hypertension Type 2 diabetes mellitus Family History Father No problems noted. Mother No problems noted. Social History Household Members: None Housing: House Do you presently have visiting nurse or other home services: Yes (home health aide) Patient Tobacco Use Status: Never used Tobacco e-Cigarette/Vaping Use: Never Used Second Hand Smoke Exposure: No service: No Current occupational status: retired Review of Systems Const Denies weakness ENT Denies dizziness Card Denies chest pain, Denies chest pain with activity, Denies syncope, Denies rapid heart rate, Denies pedal edema, Denies edema, Denies leg edema, Denies lightheadedness, Denies palpitations, Denies dyspnea, Denies dyspnea on exertion and Denies orthopnea Resp Denies cough, Denies dyspnea and Denies dyspnea on exertion GI Denies hematochezia and Denies change in stool character Musc Denies abnormal gait, Denies muscle cramps, Denies muscle weakness, Denies numbness, Denies radiating pain into limb and Denies tingling Neuro Denies abnormal gait, Denies dizziness, Denies syncope, Denies numbness, Denies tingling and Denies weakness Endo Denies palpitations Physical Exam Vital Signs: Last Vital Signs Pulse 111 H 03/12/24 13:52 BP 118/60 03/12/24 13:52 BMI result Body Mass Index 21.4 Const General: comfortable and no acute distress Orientation/consciousness: patient oriented x3 HEENT Other: Unremarkable Head: Yes normal to inspection Neck Neck: Yes normal visual inspection Chest Chest palpation & inspection: normal inspection of the chest Resp Auscultation: clear to auscultation bilaterally Cardio Palpation: normal PMI Heart sounds: S1 normal heart sound present, S2 normal heart sound present, no gallops, no murmurs and no rubs GI Palpation (GI): Soft to palpation Back/Spine/Pelvis Other: unremarkable Skin General skin exam: no rashes or lesions noted Neuro General: patient oriented x3 Extrem General: Yes normal to inspection Psych Mental Status: mental status grossly normal Office Procedures EKG Details: EKG with atrial fibrillation at a rate of 111/Min; inferior as well as anterolateral nonspecific ST-T changes including slight T inversions. [id number], Complete Assessment & Plan Assessment & Plan (1) Coronary artery disease: Code(s): I25.10 - Atherosclerotic heart disease of [place] coronary artery without angina pectoris Category: Medical Qualifiers: Associated angina: with stable angina Coronary Disease-Associated Artery/Lesion type: [place] artery [place] vs. transplanted heart: [place] heart Qualified Code(s): I25.118 - Atherosclerotic heart disease of [place] coronary artery with other forms of angina pectoris Plan: Cardiac catheterization reviewed from 2019. Left main without any significant disease. LAD had mid 60% stenosis. In the circumflex, mid section with 70% stenosis and distal 80% stenosis. First marginal had 70% stenosis. 100% proximal RCA stenosis collateralized by [id number] system with diffuse PDA disease and poor runoff. Overall, medical therapy was recommended. Patient does not want any further invasive procedures. Hence medical treatment only. May use sublingual nitroglycerin as needed. Already on beta-blockers. Continue statins. Lipids to be followed to her own PCP as there is a lot of confusion with medications. (2) Persistent atrial fibrillation: Code(s): I48.19 - Other persistent atrial fibrillation Category: Medical Plan: While taking metoprolol 50 mg b.i.d. with amiodarone, she was too bradycardic. She was supposed to be taking metoprolol ER 75 mg daily but only taking 50 mg daily. Advised to go up to 75 mg daily. We can recheck Holter on that. Continue anticoagulation. We may have to accept a slightly increased heart rate due to previous issues with bradycardia. (3) Essential hypertension: Code(s): I10 - Essential (primary) hypertension Category: Medical Plan: Stable. No changes. Plan Discussed using Citizen [place] medical interpreter. Also discussed with family who came for appointment. Coding Level of Care Code Est Pt Level 4 (80718) Diagnoses Coronary artery disease of [place] artery of [place] heart with stable angina pectoris I25.118 Associated angina: with stable angina Coronary Disease-Associated Artery/Lesion type: [place] artery [place] vs. transplanted heart: [place] heart Persistent atrial fibrillation I48.19 Essential hypertension I10 CPT Codes EKG - CPT: 58760-[id number], Complete ([id number])
[2024-03-12 13:52] VITALS: BP 118/60; PULSE 111; BMI 21.4
== END 2024-03-12 14:20 | disposition home or self-care (01) ==
PROVIDERS: PCP Nurse Practitioner Adult Health; Visit Provider Internal Medicine
DX: I25.118 Atherosclerotic heart disease of native coronary artery with other forms of angina pectoris (principal); I48.19 Other persistent atrial fibrillation; I10 Essential (primary) hypertension
CPT/HCPCS: 93010; 99214

== ENCOUNTER → 2024-03-12 13:45 | Outpatient (BNVA) | payer OTHER, SELFPAY | PROVIDERS: PCP Nurse Practitioner Adult Health; Visit Provider Internal Medicine | DX: I25.118 Atherosclerotic heart disease of native coronary artery with other forms of angina pectoris (principal); I48.19 Other persistent atrial fibrillation; I10 Essential (primary) hypertension | CPT/HCPCS: 93005; 99212 ==

== ENCOUNTER 2024-08-06 08:06 | Outpatient (AMB) | payer OTHER, SELFPAY ==
[2024-08-06 08:10] VITALS: BP 124/68; PULSE 57; BMI 21.5
--- NOTE | 2024-08-06 08:10 | MHC.OFFVIS ---
Vital Signs 08/06/24 08:10 Height 5 ft 2 in Weight 117 lb 11.629 oz BMI 21.5 BP 124/68 Blood Pressure Location Lt brachial Position Sitting Pulse 57 Pulse Source Pulse Oximeter Intake Visit Reasons: 3 mth f/up Veneer Cutter Required: Yes Veneer Cutter Name: Flaco [id number] Accompanied by: Sister Allergies No Known Allergies [No Known Allergies*] Allergy (Verified 08/24/23 10:05) Medication List - Last Reconciled 08/06/24 by Jamaal Zelaya MD apixaban (Eliquis) 5 mg PO BID atorvastatin 80 mg PO DAILY empagliflozin (Jardiance) 25 mg PO DAILY glipizide ER 5 mg PO BID levothyroxine 88 mcg PO DAILY losartan 50 mg PO DAILY metformin 1,000 mg PO BID metoprolol succinate ER 75 mg (1.5 x 50 mg) PO DAILY 90 days nitroglycerin 0.4 mg sublingual Q5M PRN HPI Comments Details: Tammy returns for follow-up. Communication using [place] interpreter and translator. Sister also present. Cardiac history in summary- based on cardiac catheterization in 2019, has multivessel CAD. Medical therapy was recommended based on anatomy. In 2022, admission to hospital with NSTEMI. However, patient wanted only medical therapy and hence meds optimized. She also had atrial fibrillation with rapid rate. Subsequently, her beta-oriana dose was increased and she was also started on amiodarone for rate control. Digoxin was not used as she has a history of multivessel disease. Any case, it seems that she had bradycardia and got readmitted to [facility] and at that time, amiodarone was stopped and beta-oriana dose was decreased. After that, she states she has been generally doing good. Sometimes she gets angina sounding symptoms but for the most part she states she is doing good. [facility] Medical History (Updated 08/24/23 @ 11:16 by Jamaal Zelaya MD) Cerebral aneurysm Brain aneurysm Subarachnoid hemorrhage Coronary artery disease Essential hypertension Type 2 diabetes mellitus Family History Father No problems noted. Mother No problems noted. Social History Household Members: None Housing: House Do you presently have visiting nurse or other home services: Yes (home health aide) Patient Tobacco Use Status: Never used Tobacco e-Cigarette/Vaping Use: Never Used Second Hand Smoke Exposure: No service: No Current occupational status: retired Review of Systems Const Denies chills, Denies fatigue, Denies fever(s), Denies weight gain and Denies weight loss ENT Denies dizziness Card Denies chest pain, Denies leg edema, Denies lightheadedness, Denies palpitations, Denies dyspnea on exertion, Denies orthopnea and Denies other Resp Denies cough and Denies dyspnea on exertion GI Denies hematochezia and Denies change in stool character Musc Denies abnormal gait, Denies muscle weakness, Denies numbness, Denies radiating pain into limb and Denies tingling Neuro Denies abnormal gait, Denies dizziness, Denies numbness and Denies tingling Endo Denies fatigue and Denies palpitations Physical Exam Vital Signs: Last Vital Signs Pulse 57 08/06/24 08:10 BP 124/68 08/06/24 08:10 BMI result Body Mass Index 21.5 Const General: comfortable and no acute distress Orientation/consciousness: patient oriented x3 HEENT Other: Unremarkable Head: Yes normal to inspection Neck Neck: Yes normal visual inspection Chest Chest palpation & inspection: normal inspection of the chest Resp Auscultation: clear to auscultation bilaterally Cardio Palpation: normal PMI Heart sounds: S1 normal heart sound present, S2 normal heart sound present, no gallops, no murmurs and no rubs GI Palpation (GI): Soft to palpation Back/Spine/Pelvis Other: unremarkable Skin General skin exam: no rashes or lesions noted Neuro General: patient oriented x3 Extrem General: Yes normal to inspection Psych Mental Status: mental status grossly normal Office Procedures EKG Details: EKG with atrial fibrillation, 88/Min; cannot exclude old anterior infarct; nonspecific ST-T changes in the inferior and anterolateral leads. [id number], Complete Assessment & Plan Assessment & Plan (1) Coronary artery disease: Code(s): I25.10 - Atherosclerotic heart disease of [place] coronary artery without angina pectoris Category: Medical Qualifiers: Associated angina: with stable angina Coronary Disease-Associated Artery/Lesion type: [place] artery [place] vs. transplanted heart: [place] heart Qualified Code(s): I25.118 - Atherosclerotic heart disease of [place] coronary artery with other forms of angina pectoris Plan: Cardiac catheterization reviewed from 2019. Left main without any significant disease. LAD had mid 60% stenosis. In the circumflex, mid section with 70% stenosis and distal 80% stenosis. First marginal had 70% stenosis. 100% proximal RCA stenosis collateralized by [id number] system with diffuse PDA disease and poor runoff. Overall, medical therapy was recommended. Patient does not want any further invasive procedures. Hence medical treatment only. May use sublingual nitroglycerin as needed. Already on beta-blockers. Continue statins. (2) Persistent atrial fibrillation: Code(s): I48.19 - Other persistent atrial fibrillation Category: Medical Plan: While taking metoprolol 50 mg b.i.d. with amiodarone, she was too bradycardic. Per med list, she is on metoprolol ER 75 mg daily but difficult to clarify in spite of [place] interpreter and translator. Continue anticoagulation. We may have to accept a slightly increased heart rate due to previous issues with bradycardia. (3) Essential hypertension: Code(s): I10 - Essential (primary) hypertension Category: Medical Plan: Stable. No changes. Plan Discussed using [place] interpreter and translator. Discussed with family. Coding Level of Care Code Est Pt Level 4 (92719) Diagnoses Coronary artery disease of [place] artery of [place] heart with stable angina pectoris I25.118 Associated angina: with stable angina Coronary Disease-Associated Artery/Lesion type: [place] artery [place] vs. transplanted heart: [place] heart Persistent atrial fibrillation I48.19 Essential hypertension I10 CPT Codes EKG - CPT: 77852-[id number], Complete ([id number])
== END 2024-08-06 08:35 | disposition home or self-care (01) ==
PROVIDERS: PCP Nurse Practitioner Adult Health; Visit Provider Internal Medicine
DX: I25.118 Atherosclerotic heart disease of native coronary artery with other forms of angina pectoris (principal); I48.19 Other persistent atrial fibrillation; I10 Essential (primary) hypertension
CPT/HCPCS: 93010; 99214

== ENCOUNTER → 2024-08-06 08:06 | Outpatient (BNVA) | payer OTHER, SELFPAY | PROVIDERS: PCP Nurse Practitioner Adult Health; Visit Provider Internal Medicine | DX: I25.118 Atherosclerotic heart disease of native coronary artery with other forms of angina pectoris (principal); I10 Essential (primary) hypertension; I48.19 Other persistent atrial fibrillation | CPT/HCPCS: 93005; 99212 ==

== ENCOUNTER 2025-02-07 08:55 | Outpatient (AMB) | payer OTHER, SELFPAY ==
--- NOTE | 2025-02-07 08:59 | MHC.OFFVIS ---
Vital Signs 02/07/25 09:04 Height 5 ft 2 in Weight 115 lb 8.356 oz BMI 21.1 BP 110/60 Blood Pressure Location Lt brachial Position Sitting Pulse 72 Pulse Source Pulse Oximeter Intake Visit Reasons: 6 mth f/up Intake Note: 6 mth f/up Glove Turner And Former Required: Yes Glove Turner And Former Language: Gabonese Glove Turner And Former Name: [email or web address] Accompanied by: Daughter Allergies No Known Allergies [No Known Allergies*] Allergy (Verified 08/24/23 10:05) Medication List - Last Reconciled 02/07/25 by Jamaal Zelaya MD apixaban (Eliquis) 5 mg PO BID atorvastatin 80 mg PO DAILY empagliflozin (Jardiance) 25 mg PO DAILY glipizide ER 5 mg PO BID levothyroxine 88 mcg PO DAILY losartan 50 mg PO DAILY metformin 1,000 mg PO BID metoprolol succinate ER 75 mg (1.5 x 50 mg) PO DAILY 90 days nitroglycerin 0.4 mg sublingual Q5M PRN HPI Comments Details: Tammy returns for follow-up. Communication using Gabonese diplomatic interpreter. Sister also present. Cardiac history in summary- per cardiac catheterization in 2019, has multivessel CAD. Medical therapy was recommended based on anatomy. In 2022, admission to hospital with NSTEMI. However, patient wanted only medical therapy and hence meds optimized. She also had atrial fibrillation with rapid rate. Subsequently, her beta-oriana dose was increased and she was also started on amiodarone for rate control. Digoxin was not used as she has a history of multivessel disease. Then she had bradycardia and got readmitted to [facility] and at that time, Amiodarone was stopped and beta-oriana dose was decreased. Over the last couple of years, she has actually been okay. No new concerns. Denies any angina. No palpitations or any other concerns. Getting along fine. [facility] Medical History (Updated 08/24/23 @ 11:16 by Jamaal Zelaya MD) Cerebral aneurysm Brain aneurysm Subarachnoid hemorrhage Coronary artery disease Essential hypertension Type 2 diabetes mellitus Family History Father No problems noted. Mother No problems noted. Social History Household Members: None Housing: House Do you presently have visiting nurse or other home services: Yes (home health aide) Patient Tobacco Use Status: Never used Tobacco e-Cigarette/Vaping Use: Never Used Second Hand Smoke Exposure: No service: No Current occupational status: retired Review of Systems Const Denies chills, Denies fatigue, Denies fever(s), Denies frequent falls, Denies weakness, Denies weight gain and Denies weight loss ENT Denies dizziness Card Denies chest pain, Denies leg edema, Denies lightheadedness, Denies palpitations, Denies dyspnea and Denies dyspnea on exertion Resp Denies cough, Denies dyspnea and Denies dyspnea on exertion GI Denies hematochezia Musc Denies abnormal gait, Denies muscle weakness, Denies numbness, Denies radiating pain into limb and Denies tingling Neuro Denies abnormal gait, Denies dizziness, Denies frequent falls, Denies numbness, Denies tingling and Denies weakness Endo Denies fatigue and Denies palpitations Physical Exam Vital Signs: Last Vital Signs Pulse 72 02/07/25 09:04 BP 110/60 02/07/25 09:04 BMI result Body Mass Index 21.1 Const General: comfortable and no acute distress Orientation/consciousness: patient oriented x3 HEENT Other: Unremarkable Head: Yes normal to inspection Neck Neck: Yes normal visual inspection Chest Chest palpation & inspection: normal inspection of the chest Resp Auscultation: clear to auscultation bilaterally Cardio Palpation: normal PMI Heart sounds: S1 normal heart sound present, S2 normal heart sound present, no gallops, no murmurs and no rubs GI Palpation (GI): Soft to palpation Back/Spine/Pelvis Other: unremarkable Skin General skin exam: no rashes or lesions noted Neuro General: patient oriented x3 Extrem General: Yes normal to inspection Psych Mental Status: mental status grossly normal Assessment & Plan Assessment & Plan (1) Coronary artery disease: Code(s): I25.10 - Atherosclerotic heart disease of [place] coronary artery without angina pectoris Category: Medical Qualifiers: Associated angina: with stable angina Coronary Disease-Associated Artery/Lesion type: [place] artery [place] vs. transplanted heart: [place] heart Qualified Code(s): I25.118 - Atherosclerotic heart disease of [place] coronary artery with other forms of angina pectoris Plan: Cardiac catheterization-2019- Left main without any significant disease. LAD had mid 60% stenosis. In the circumflex, mid section with 70% stenosis and distal 80% stenosis. First marginal had 70% stenosis. 100% proximal RCA stenosis collateralized by [id number] system with diffuse PDA disease and poor runoff. Overall, medical therapy was recommended. Patient does not want any further invasive procedures. Hence medical treatment only. May use sublingual nitroglycerin as needed. Already on beta-blockers. Continue statins. (2) Persistent atrial fibrillation: Code(s): I48.19 - Other persistent atrial fibrillation Category: Medical Plan: While taking metoprolol 50 mg b.i.d. with amiodarone, she was too bradycardic. Per med list, she is on metoprolol ER 75 mg daily. On Eliquis. No further changes. Patient states that she gets labs through her own PCP in [place] and hence we will call for that. (3) Essential hypertension: Code(s): I10 - Essential (primary) hypertension Category: Medical Plan: Stable. No changes. Plan Discussed using Gabonese diplomatic interpreter. Discussed with sister. Coding Level of Care Code Est Pt Level 4 (20420) Complex EM visit Add On G2211 Diagnoses Coronary artery disease of [place] artery of [place] heart with stable angina pectoris I25.118 Associated angina: with stable angina Coronary Disease-Associated Artery/Lesion type: [place] artery [place] vs. transplanted heart: [place] heart Persistent atrial fibrillation I48.19 Essential hypertension I10
[2025-02-07 09:04] VITALS: BP 110/60; PULSE 72; BMI 21.1
--- OUTSIDE RECORDS SUMMARY | 2025-02-07 09:23 | XMS_ITS | Encounter Summary ---
Author Organization [facility] Address [address] [facility] [address] [place] [address] Phone Care Team Providers Care Packaging Supervisor Name Role Phone Alan Kimble MD Primary Care Provider [phone] Encounter Details Date Type Department Care Team (Late st Contact Info) Description 07/18/2019 Ancillary Orders Non-Invasive Cardiology [address] [place] [address] Alana Claudio MD [address] [place] [id number] [email or web address] Chest pain, unspecified type Social History Tobacco Use Types Packs/Day Years Used Date Smoking Tobacco: Never Assessed Comments Unknown Sex and Gender Information Value Date Recorded Sex Assigned at Not on file Legal Sex Female 10:12 PM EDT Gender Identity Not on file Sexual Orientation Not on file documented as of this encounter Plan of Treatment Not on file documented as of this encounter Results * NC Stress Result for Nuclear Stress Test (07/18/2019 11:09 AM EDT) Max BP Systolic 200 mmHg [facility] Max BP Diastolic 80 mmHg [facility] Max HR 90 BPM [facility] Resting HR 62 BPM [facility] Resting BP Systolic 150 mmHg [facility] Resting BP Diastolic 70 mmHg [facility] Peak METS 1.0 METS [facility] Peak HR 88 BPM [facility] Peak BP Systolic 144 mmHg [facility] Peak BP Diastolic 60 mmHg [facility] Anatomical Region Laterality Modality Heart Other 07/18/2019 10:1 5 AM EDT 07/18/2019 12:40 PM EDT Narrative 07/18/2019 1:38 PM EDT ?? There was electrocardiographic evidence of myocardial ischemia . This report represents only part of the nuclear stress test - sestamibi images will be reported separately by the Dept. of Radiology. Stress Findings There was evidence of myocardial ischemia . Sestamibi images will be reported out separately by the Department of Radiology. This report represents only part of the nuclear stress test. Correlation of the imaging and electrocardiographic results is necessary. Since both tests have a percentage of false negatives/positives, both results must be correlated with the patient's other clinical date. Response to Stress The patient exercised for minutes seconds, achieving 1.0 METS at peak exercise. Baseline blood pressure was 150/70 mmHg, and baseline heart rate was 62 bpm. Peak blood pressure was 144/60 mmHg. The patient achieved a peak heart rate of 88 bpm, which is% of their maximum predicted heart rate. Rate pressure product was [address]. Patient was unable to walk on TM due to gait instability and joint pain. The patient was infused with 0.4 mg of Regadenoson (Lexiscan) intravenously over 10 seconds followed immediately by the injection of the Tc99m Sestamibi by the nuclear plant instrument technician. Patient tolerated infusion without complications. Test terminated due to completion of protocol. SUMMARY: 1. RESTING ECG: Normal sinus rhythm 2. EXERCISE ECG: After injection of Lexiscan patient was noted to have diffuse 1-1.5mm horizontal to downsloping ST depressions in the anterolateral leads, ECGs improved but remained abnormal 16 minutes into recovery 3. SYMPTOMS: Patient reported baseline chest pain of 2/10 to start, after injection of Lexiscan chest pain increased to 7/10 and radiated into her jaw, she became hypertensive and complained of a headache. She was reversed to 75 mg of Aminophyllin. The chest pain persisted she was given nitroglycerin sublingual x3, by the third tab of nitro chest pain had resolved back to pretesting level. 4. PHYSIOLOGY: Patient became hypertensive after injection of Lexiscan peaking at 200/90. This improved after reversal and administration of nitroglycerin. Resting heart rate of 62 josh to a maximum of 90 bpm.. Vital signs stable and returned to baseline prior to discharge from the lab. 5. ARRHYTHMIA: Rare isolated PVC CONCLUSION: Abnormal EKG portion of pharmacologic nuclear stress test. With ECG changes suggestive of ischemia and symptoms concerning for angina. Chest pain intensified to 7/10 radiated into her jaw after injection of Lexiscan, this improved after reversal with aminophylline and sublingual nitroglycerin x3.. Nuclear images and report to follow. See attached stress report for additional details. ECGs reviewed with Dr. Mendez. Chay Meza, MANAGER PROGRAMMING. us Alana Claudio MD CV NM CARDIAC Final Re sult documented in this encounter Visit Diagnoses Diagnosis Chest pain, unspecified type Chest pain, unspecified type documented in this encounter Care Teams Packaging Supervisor Relationship Specialty Start Date End Date Alan Kimble MD [address] [place] [address] [email or web address] PCP - General 09/29/17 documented as of this encounter Additional Source Comments The information contained in this document represents components of the legal health record. It is not the complete legal health record.[facility]
--- OUTSIDE RECORDS SUMMARY | 2025-02-07 09:23 | XMS_ITS | Clinical Summary ---
Author Organization [facility] Address [address] [address] Phone Care Team Providers Care Manual Control Auger Press Operator Name Role Phone Alan Kimble MD Primary Care Provider [phone]- [phone] Allergies Active Allergy Reactions Criticality Noted Date Comments Amitriptyline 06/25/2019 Mirtazapine 06/25/2019 Medications Medication-Free Text Vitamin B-6 Active CYANOCOBALAMIN, VITAMIN B-12, (VITAMIN B-12 ORAL) Orally Active valsartan (DIOVAN) 320 MG tablet Take 1 tablet by mouth daily. Active glyBURIDE (DIABETA) 2.5 MG tablet Take 1 tablet by mouth daily. Active losartan (COZAAR) 100 MG tablet Take 1 tablet by mouth daily. Active metoprolol succinate (TOPROL-XL) 25 MG 24 hr tablet Take 1 tablet by mouth daily. Active metFORMIN (GLUCOPHAGE) 1000 MG tablet Take 1 tablet by mouth 2 (two) times a day with meals. Active levothyroxine (SYNTHROID, LEVOTHROID) 75 MCG tablet Take 1 tablet by mouth every morning. on an empty stomach Active clopidogrel (PLAVIX) 75 mg tablet Take 1 tablet by mouth daily. Active Medication-Free Text Iron Active Medication-Free Text Vitamin C Active lancets Misc 4x/d Active Medication-Free Text Vitamin D Active glipiZIDE (GLUCOTROL) 2.5 MG 24 hr tablet Take 2.5 mg by mouth daily. Active b complex vitamins capsule Take 1 capsule by mouth daily. Active nitroglycerin (NITROSTAT) 0.[address] 1 tablet (0.4 mg total) under the tongue every 5 (five) minutes as needed for chest pain. 50 tablet 2 08/08/2019 Active simvastatin (ZOCOR) 40 MG tabletIndicatio ns:Medication refill TAKE 1 TABLET BY MOUTH EVERY DAY IN THE EVENING 90 tablet 3 10/29/2019 Active Active Problems Problem Noted Date Diagnosed Date Hypertension 06/25/2019 Social History Tobacco Use Types Packs/Day Years Used Date Smoking Tobacco: Never Smokeless Tobacco: Never Alcohol Use Standard Drinks/Week Comments Not Currently 0 (1 standard drink = 0.6 oz pur e alcohol) Education Answer Date Recorded Are you interested in more education? Not on radha e 01/21/2023 Are you concerned about learning? Not on file 01/21/2023 No 01/21/2023 No 01/21/2023 Digital Access Answer Date Recorded No 02/19/2023 No 02/19/2023 No 02/19/2023 Reliable internet access at home? Not on file 02/19/2023 Device with a working camera? Not on file Comments Unknown Sex and Gender Information Value Date Recorded Sex Assigned at Not on file Legal Sex Female 10:12 PM EDT Gender Identity Not on file Sexual Orientation Not on file Last Filed Vital Signs Vital Sign Reading Time Taken Comments Blood Pressure 138/72 08/08/2019 8:52 AM EST Pulse 58 08/08/2019 8:52 AM EST Temperature - - Respiratory Rate - - Oxygen Saturation 98% 08/08/2019 8:52 AM EST Inhaled Oxygen Concentration - - Weight 67.2 kg (148 lb 1.6 oz) 07/23/2019 10:09 AM EDT Height 156.2 cm (5' 1.5 ) 04/03/2014 3:14 AM EDT Body Mass Index 27.53 04/03/2014 3:14 AM EDT Plan of Treatment Health Maintenance Due Date Last Done Comments BLOOD PRESSURE 1941 CREATININE LEVEL 1941 POTASSIUM LEVEL 1941 TSH LEVEL 1941 DEPRESSION SCREENING 1953 HEPATITIS B SCREENING 1959 OSTEOPOROSIS SCREENING INITI AL (ONE-TIME) 2006 ZOSTER VACCINES (2 of 3) 10/30/2009 09/04/2009 PNEUMOCOCCAL VACCINES (50+ years) (2 of 2 - PCV) 05/28/2013 05/28/2012, 05/16/2012 RSV VACCINE (1 - 1-dose 75+ series) 2016 Adult Td,Tdap Booster 06/12/2019 06/12/2009 INFLUENZA VACCINE (#1) 2024 4, 09/06/2010, 06/12/2009 COVID-19 VACCINE (2023-2 5 season) 2024 HEPATITIS A VACCINES Aged Out No long er eligible based on patient's age to complete this topic HEPATITIS B VACCINES Aged Out No long er eligible based on patient's age to complete this topic HIB VACCINES Aged Out No longer eligi ble based on patient's age to complete this topic MENINGOCOCCAL VACCINES (ACWY) Aged Out No longer eligible based on patient's age to complete this topic Medical Devices Not on file Insurance MEDICARE REPLACEMENT [employer] [id number] [place] [address] MEDICARE REPLACEMENT [employer] [id number] MEDICARE REPLACEMENT MEDICARE REPLACEMENT MEDICARE REPLACEMENT MEDICARE REPLACEMENT MEDICARE REPLACEMENT MEDICARE REPLACEMENT [facility] MEDICARE REPLACEMENT [employer] [id number] Care Teams Manual Control Auger Press Operator Relationship Specialty Start Date End Date Alan Kimble MD [address] [place] [id number] [email or web address] PCP - General 09/29/17 Additional Source Comments The information contained in this document represents components of the legal health record. It is not the complete legal health record.[facility]
--- OUTSIDE RECORDS SUMMARY | 2025-02-07 09:23 | XMS_ITS | Encounter Summary ---
Author Organization [facility] Address [address] [facility] [address] [place] [address] Phone Care Team Providers Care Principal Strategist Name Role Phone Alan Kimble MD Primary Care Provider +1- [phone] Encounter Details Date Type Department Care Team (Latest Contact Info) Description 05/10/2019 Ancillary Orders Virtual Department [address] [place] [address] Kandi King NP [address] [place] [phone] Asymptomatic postmenopausal state Social History Tobacco Use Types Packs/Day Years Used Date Smoking Tobacco: Never Assessed Comments Unknown Sex and Gender Information Value Date Recorded Sex Assigned at Not on file Legal Sex Female 10:12 PM EDT Gender Identity Not on file Sexual Orientation Not on file documented as of this encounter Plan of Treatment Not on file documented as of this encounter Visit Diagnoses Diagnosis Asymptomatic postmenopausal state documented in this encounter Care Teams Principal Strategist Relationship Specialty Start Date End Date Alan Kimble MD [address] [place] [phone] PCP - General 09/29/17 documented as of this encounter Additional Source Comments The information contained in this document represents components of the legal health record. It is not the complete legal health record.[facility]
== END 2025-02-07 09:13 | disposition home or self-care (01) ==
LOC: HO.HCS 08:55
PROVIDERS: PCP Nurse Practitioner Adult Health; Visit Provider Internal Medicine
DX: I25.118 Atherosclerotic heart disease of native coronary artery with other forms of angina pectoris (principal); I48.19 Other persistent atrial fibrillation; I10 Essential (primary) hypertension
CPT/HCPCS: 99214; G2211

== ENCOUNTER → 2025-02-07 08:55 | Outpatient (BNVA) | payer OTHER, SELFPAY | PROVIDERS: PCP Nurse Practitioner Adult Health; Visit Provider Internal Medicine | DX: I25.10 Atherosclerotic heart disease of native coronary artery without angina pectoris (principal); I25.118 Atherosclerotic heart disease of native coronary artery with other forms of angina pectoris; I10 Essential (primary) hypertension; I48.19 Other persistent atrial fibrillation | CPT/HCPCS: 99212 ==